=== PATIENT | female | born 1940 | race Caucasian/White ===

== ENCOUNTER 2017-03-08 11:19 | Emergency (ER) | payer MEDICARE, BC ==
[~2017-03-08] VITALS: Ht 152.4 cm; Wt 96.0 kg
[~2017-03-08 11:19] MED LIST: FERR1TAB36 PO; FURO1TAB62 PO; HYDR25TA5 PO; MULT400T PO; NORC5TAB PO; POTA-163 PO; SIMV20TA PO; VITA500T PO; XARE20TA PO
[2017-03-08 11:30] VITALS: BP 130/74; PULSE 75; RESP 18; TEMP 99.1; O2SAT 95
[2017-03-08] MEDS ORDERED: MORPHINE SULFATE 8 MG/ML INJ IV PUSH ONE (11:45)
[2017-03-08] MEDS ORDERED: SODIUM CHLORIDE 0.9% FLUSH 10 ML FLUSH IV FLUSH PRN (11:45)
[2017-03-08] MEDS ORDERED: LIDOCAINE VISCOUS 2% SOLN 15 ML UDC PO ONE (11:45)
[2017-03-08] MEDS ORDERED: ONDANSETRON HCL 4 MG/2 ML VIAL IVP ONE (11:45)
[2017-03-08] MEDS ORDERED: METO25TA3 PO (11:45)
[2017-03-08] MEDS ORDERED: FURO20TA PO (11:45)
[2017-03-08 11:54] LABS: AUTOMATED NEUTROPHIL # 7.8 TH/MM3 (1.8-7.7); BASOPHIL # 0.2 TH/MM3 (0-0.2); BASOPHIL % 2.2 % (0.0-2.0); EOSINOPHIL # 0.1 TH/MM3 (0-0.4); EOSINOPHIL % 0.7 % (0.0-4.0); LYMPH % 13.5 % (9.0-44.0); LYMPHOCYTE # 1.4 TH/MM3 (1.0-4.8); MEAN CELL VOLUME 88.8 FL (80.0-100.0); MEAN CORPUSCULAR HGB CONC 34.9 % (32.0-36.0); MONO % 6.4 % (0.0-8.0); NEUT % 77.2 % (16.0-70.0); PLATELET COUNT 216 TH/MM3 (150-450); RED BLOOD COUNT 4.17 MIL/MM3 (4.00-5.30); RED CELL DISTRIBUTION WIDTH 13.4 % (11.6-17.2); WHITE BLOOD COUNT 10.2 TH/MM3 (4.0-11.0)
[2017-03-08 11:55] LABS: HEMO FLAGS AUTO DIFF
[2017-03-08 12:00] VITALS: O2SAT 95
[2017-03-08 12:15] LABS: SCAN/DIFF AUTO DIFF CONFIRMED
[2017-03-08 12:22] LABS: CHLORIDE 97 MEQ/L (98-107); POTASSIUM 3.5 MEQ/L (3.5-5.1); SODIUM (NA) 140 MEQ/L (136-145)
[2017-03-08 12:24] LABS: APTT (PATIENT) 28.3 SEC (24.3-30.1); INTERNATIONAL NORMALIZED RATIO 1.1 RATIO; PROTHROMBIN TIME - PATIENT 12.1 SEC (9.8-11.6)
[2017-03-08 12:25] LABS: ANION GAP 7 MEQ/L (5-15); BICARBONATE 36.3 MEQ/L (21.0-32.0); BLOOD UREA NITROGEN 18 MG/DL (7-18)
[2017-03-08 12:28] LABS: ALT (GPT) 32 U/L (10-53); AST (GOT) 25 U/L (15-37); GLOMERULAR FILTRATION RATE 69 ML/MIN (>89)
[2017-03-08 12:30] VITALS: BP 123/69; PULSE 65; RESP 18; O2SAT 96
[2017-03-08 12:30] LABS: TOTAL BILIRUBIN ADULT 0.7 MG/DL (0.2-1.0)
[2017-03-08 12:31] LABS: ALKALINE PHOSPHATASE 79 U/L (45-117)
--- NOTE | 2017-03-08 12:40 | RADHPO ---
EXAM DATE/TIME: 03/08/2017 12:27 [facility] COMPARISON: CHEST PA & LAT, September 23, 2016, 9:21. CHEST SINGLE AP, September 21, 2016, 15:26. INDICATIONS : Chest pain, short of breath. MEDICAL HISTORY : Hiatal hernia. Hypertension Hypercholesterolemia. A-fib SURGICAL HISTORY : None. ENCOUNTER: Initial ACUITY: 2 days PAIN SCORE: 2/10 LOCATION: Bilateral chest FINDINGS: A single view of the chest demonstrates the lungs to be symmetrically aerated without evidence of mas s, infiltrate or effusion. There is some mild pulmonary venous congestion. The heart size is enlarged but stable. There is evidence of a stable hiatal hernia the GE junction. Compared to the prior exam there's been no significant changes.. CONCLUSION: 1. Mild pulmonary venous congestion. 2. Stable cardiomegaly. 3. Stable large hiatal hernia. Alexandre Carroll MD on March 08, 2017 at 12:37 Board Certified Radiologist. This report was verified electronically.
--- NOTE | 2017-03-08 12:51 | PD ---
HPI Chief Complaint: Chest Pain Time Seen by Provider: 11:28 Travel History International Travel<30 days: No Contact w/Intl Traveler<30days: No Traveled to known affect area: No History of Present Illness HPI 76-year-old female complains of orthopnea and dyspnea on exertion for several days. She also has epigastric abdominal pain. Symptoms are essentially constant. She reports a history of a hiatal hernia and believes that he asked her pain is due to the hiatal hernia. She's had no fever or cough. No vomiting reported. She follows with Dr. Sandoval. She also complains of rash on the L arm and bilateral legs since this morning. She wonders if it could be albuterol which she started using on Wednesday. The patient had her hair dyed brown on Wednesday as well and her scalp is red. PFSH Past Medical History Atrial Fibrillation: Yes Blood Disorders: No Heart Rhythm Problems: Yes (PT HAS A-FIB) Cancer: No Cardiovascular Problems: Yes High Cholesterol: Yes Diminished Hearing: No Endocrine: No GERD: No Genitourinary: No Headaches: Yes Hiatal Hernia: Yes Hypertension: Yes Immune Disorder: No Musculoskeletal: No Neurologic: No Psychiatric: No Reproductive: No Respiratory: Yes (HISTORY OF PNUEMONIA 08/2006, CHRONIC BRONCHITIS ENVIRONMENTAL) Pneumonia: Yes Tetanus Vaccination: > 5 Years Influenza Vaccination: Yes ?: Not Menopausal: Yes : 6 Para: 4 Miscarriage: 2 Past Surgical History AICD: No Cholecystectomy: Yes (1993) Eye Surgery: Yes (Cataracts ) Gynecologic Surgery: Yes (MESH PUT IN FOR BLADDER REPAIR) Pacemaker: No Other Surgery: Yes (RECTOCEL/CYSTOCEL MANY YEARS AGO, B9 CYSTS REMOVED FROM BREAST) Family History Family Myocardial Infarction: Yes Social History Alcohol Use: No Tobacco Use: No Substance Use: No Allergies-Medications (Allergen,Severity, Reaction): Coded Allergies: No Known Allergies (Verified , 03/08/17) Reported Meds & Prescriptions Reported Meds & Active Scripts Active Reported Furosemide 20 Mg Tab 20 Mg PO BID Metoprolol Tartrate 25 Mg Tab 25 Mg PO BID Xarelto (Rivaroxaban) 20 Mg Tab 20 Mg PO DAILY Multaq (Dronedarone) 400 Mg Tab 400 Mg PO DAILY Vitamin C (Ascorbic Acid) 500 Mg Tab 500 Mg PO DAILY Simvastatin 20 Mg Tab 20 Mg PO DAILY Potassium Chloride ER (Potassium Chloride) 20 Meq Tab 25 Meq PO DAILY Hydrochlorothiazide 25 Mg Tab 25 Mg PO DAILY Iron (Ferrous Sulfate) 325 Mg Tab 325 Mg PO DAILY Take Review of Systems Except as stated in HPI: all other systems reviewed are Neg General / Constitutional: No: Fever, Chills Respiratory: Positive: Shortness of Breath, No: Cough Physical Exam Narrative GENERAL: 76-year-old female pleasant well-nourished well-developed slightly anxious SKIN: Focused skin assessment warm/dry. HEAD: Atraumatic. Normocephalic. The scalp about the hair is red. Minimal urticaria along the left forearm. EYES: Pupils equal and round. No scleral icterus. No injection or drainage. ENT: No nasal bleeding or discharge. Mucous membranes pink and moist. NECK: Trachea midline. No JVD. CARDIOVASCULAR: Regular rate and rhythm. No murmur appreciated. RESPIRATORY: No accessory muscle use. Clear to auscultation. Breath sounds equal bilaterally. GASTROINTESTINAL: Soft. Minimal tenderness in the epigastrium. MUSCULOSKELETAL: No obvious deformities. No clubbing. No cyanosis. No edema. NEUROLOGICAL: Awake and alert. No obvious cranial nerve deficits. Motor grossly within normal limits. Normal speech. PSYCHIATRIC: Appropriate mood and affect; insight and judgment normal. Data Data Last Documented VS Vital Signs Date Time Temp Pulse Resp B/P Pulse Ox O2 Delivery O2 Flow Rate FiO2 03/08/17 13:30 88 18 113/64 98 Room Air 03/08/17 12:30 2 03/08/17 11:30 99.1 Vital signs reviewed Orders Complete Blood Count With Diff (03/08/17 11:40) Comprehensive Metabolic Panel (03/08/17 11:40) Lipase (03/08/17 11:40) Prothrombin Time / Inr (Pt) (03/08/17 11:40) Act Partial Throm Time (Ptt) (03/08/17 11:40) Iv Access Insert/Monitor (03/08/17 11:40) Ecg Monitoring (03/08/17 11:40) Oximetry (03/08/17 11:40) Ondansetron Inj (Zofran Inj) (03/08/17 11:45) Sodium Chloride 0.9% Flush (Ns Flush) (03/08/17 11:45) Electrocardiogram (03/08/17 11:40) Morphine Inj (Morphine Inj) (03/08/17 11:45) Lidocaine 2% Viscous (Xylocaine 2% Visco (03/08/17 11:45) Troponin I (03/08/17 11:40) Chest, Single Ap (03/08/17 ) B-Type Natriuretic Peptide (03/08/17 12:45) Labs Laboratory Tests Test 03/08/17 03/08/17 11:20 12:50 White Blood Count 10.2 TH/MM3 Red Blood Count 4.17 MIL/MM3 Hemoglobin 12.9 GM/DL Hematocrit 37.0 % Mean Corpuscular Volume 88.8 FL Mean Corpuscular Hemoglobin 31.0 PG Mean Corpuscular Hemoglobin 34.9 % Concent Red Cell Distribution Width 13.4 % Platelet Count 216 TH/MM3 Mean Platelet Volume 8.5 FL Neutrophils (%) (Auto) 77.2 % Lymphocytes (%) (Auto) 13.5 % Monocytes (%) (Auto) 6.4 % Eosinophils (%) (Auto) 0.7 % Basophils (%) (Auto) 2.2 % Neutrophils # (Auto) 7.8 TH/MM3 Lymphocytes # (Auto) 1.4 TH/MM3 Monocytes # (Auto) 0.7 TH/MM3 Eosinophils # (Auto) 0.1 TH/MM3 Basophils # (Auto) 0.2 TH/MM3 CBC Comment AUTO DIFF Differential Comment AUTO DIFF CONFIRMED Prothrombin Time 12.1 SEC Prothromb Time International 1.1 RATIO Ratio Activated Partial 28.3 SEC Thromboplast Time Sodium Level 140 MEQ/L Potassium Level 3.5 MEQ/L Chloride Level 97 MEQ/L Carbon Dioxide Level 36.3 MEQ/L Anion Gap 7 MEQ/L Blood Urea Nitrogen 18 MG/DL Creatinine 0.81 MG/DL Estimat Glomerular Filtration 69 ML/MIN Rate Random Glucose 78 MG/DL Calcium Level 9.4 MG/DL Total Bilirubin 0.7 MG/DL Aspartate Amino Transf 25 U/L (AST/SGOT) Alanine Aminotransferase 32 U/L (ALT/SGPT) Alkaline Phosphatase 79 U/L Troponin I LESS THAN 0.02 NG/ML Total Protein 6.9 GM/DL Albumin 3.3 GM/DL Lipase 183 U/L B-Type Natriuretic Peptide 45 PG/ML MDM Medical Decision Making Medical Screen Exam Complete: Yes Emergency Medical Condition: Yes Medical Record Reviewed: Yes Differential Diagnosis NSTEMI, unstable angina, coronary vasospasm, PE, PTX, aortic dissection, pericarditis, myocarditis, endocarditis, PNA, esophageal disease, aneurysm, musculoskeletal etiologies, anxiety, cocaine/sympathomimetic, Constipation, Gastritis, Acute Cholecystitis, Biliary Colic, Pancreatitis, MORGAN, Hepatitis, Bowel Obstruction, Cystitis, Mesenteric Ischemia, AAA, Appendicitis, Renal Stone /Hydronephrosis, GERD, perforated viscous Narrative Course EKG reveals atrial fibrillation at a rate of 69 CBC & BMP Diagram 03/08/17 11:20 Tn < 0.02 Lipase 183 LFTs normal INR 1.1 It seems likely that since the same erythema present on the patient's scalp appears to be on the patient's left forearm that she might fact have suffered an allergic reaction to hair dye. We discussed this possibility and hopefully that's not it however I think it's less likely for albuterol to have caused a rash on her scalp and forearm. Decadron IV and Benadryl IV given. Return precautions discussed. The patient notes having undergone a stress test about 9 months prior which was normal. The patient is resting comfortably and feels better, is alert and in no distress. The patients results and examination findings were discussed. The repeat examination is unremarkable and benign. The history, exam, diagnostic testing, and current condition do not suggest any significant pathology to warrant further testing, continued ED treatment, admission, or surgical evaluation at this point. The vital signs have been stable. The patient does not have uncontrollable pain, intractable vomiting, or other significant symptoms. The patient's condition is stable and appropriate for discharge. The patient will pursue further outpatient evaluation with a primary care physician or other designated or consulting physician as indicated in the discharge instructions. The patient expressed understanding and was agreeable with this plan. Diagnosis Primary Impression: Abdominal pain Qualified Code: R10.13 - Epigastric pain Additional Impression: Rash Referrals: DR LONDONO 2 days Additional Instructions: You have a choice when it comes to health care, and we are glad that you chose [facility]. Hopefully, we have met your expectations on today's visit. You are welcome to return to [facility] at any time, as we are committed to meeting the health care needs of our community. Med/Other Pt SpecificInfo: Prescription(s) given Disposition: DISCHARGE HOME Condition: Stable Jose Ramon De Anda MD March 08, 2017 12:51
[2017-03-08 13:30] VITALS: BP 113/64; PULSE 88; RESP 18; O2SAT 98
[2017-03-08] MEDS ORDERED: diphenhydrAMINE HCL 50 MG/ML VIAL IV PUSH ONE (14:15)
[2017-03-08] MEDS ORDERED: DEXAMETHASONE SOD PHOS 4 MG/ML VIAL IV PUSH ONE (14:15)
--- NOTE | 2017-03-09 13:38 | EKG ---
Date Performed: 03/08/2017 Time Performed: 11:22:44 PTAGE: 76 years EKG: Atrial fibrillation. Leftward axis Poor R wave progression - probable normal variant Septal and lateral ST-T changes are nonspecific Low QRS voltages in precordial leads Abnormal ECG PREVIOUS TRACING : 09/21/2016 14.53 Compared to prior tracing no significant change DOCTOR: Hubert De León Interpretating Date/Time 03/09/2017 13:36:33
== END 2017-03-08 14:20 | disposition home or self-care (01) ==
LOC: PHED 11:19
DX: R10.13 Epigastric pain (principal); R21 Rash and other nonspecific skin eruption; I48.91 Unspecified atrial fibrillation; R09.89 Other specified symptoms and signs involving the circulatory and respiratory systems; I51.7 Cardiomegaly; E78.00 Pure hypercholesterolemia, unspecified; I10 Essential (primary) hypertension; K44.9 Diaphragmatic hernia without obstruction or gangrene; Z79.899 Other long term (current) drug therapy
CPT/HCPCS: 71010; 80053; 83690; 83880; 84484; 85025; 85610; 85730; 93005; 96374; 96375; 99285; J1100; J1200; J2270; J2405

== ENCOUNTER 2017-03-10 08:16 | Inpatient (IN) | payer MEDICARE, BC ==
[2017-03-10] VITALS (7 sets, daily range): BP systolic 116–120; BP diastolic 58–74; PULSE 70–83; RESP 16–24; TEMP 97.8–101.6; O2SAT 91–95
[~2017-03-10] VITALS: Ht 152.4 cm; Wt 98.6 kg
[~2017-03-10 08:16] MED LIST changes: -FURO1TAB62 PO; +FURO20TA PO; +METO25TA3 PO; -NORC5TAB PO
--- NOTE | 2017-03-10 08:43 | PD ---
HPI Chief Complaint: Abdominal Pain Time Seen by Provider: 08:34 Travel History International Travel<30 days: No Contact w/Intl Traveler<30days: No Traveled to known affect area: No History of Present Illness HPI patient states 4 days of abdominal pain, epigastric, rad to back, states no n/v/ d/fever/ per patient....seen at [facility] where she had cmp, lipase, cbc, and cxr all of which were nondiagnostic [facility] Past Medical History Hx Anticoagulant Therapy: Yes (xarelto) Atrial Fibrillation: Yes Blood Disorders: No Heart Rhythm Problems: Yes (PT HAS A-FIB) Cancer: No Cardiovascular Problems: Yes (a-fib) High Cholesterol: Yes Diminished Hearing: No Endocrine: No GERD: No Genitourinary: No Headaches: Yes Hiatal Hernia: Yes Hypertension: Yes Immune Disorder: No Musculoskeletal: No Neurologic: No Psychiatric: No Reproductive: No Respiratory: Yes (HISTORY OF PNUEMONIA 08/2006, CHRONIC BRONCHITIS ENVIRONMENTAL) Pneumonia: Yes Menopausal: Yes : 6 Para: 4 Miscarriage: 2 Past Surgical History AICD: No Cholecystectomy: Yes (1993) Eye Surgery: Yes (Cataracts ) Gynecologic Surgery: Yes (MESH PUT IN FOR BLADDER REPAIR) Pacemaker: No Other Surgery: Yes (RECTOCEL/CYSTOCEL MANY YEARS AGO, B9 CYSTS REMOVED FROM BREAST) Social History Alcohol Use: No Tobacco Use: No Substance Use: No Allergies-Medications (Allergen,Severity, Reaction): Coded Allergies: No Known Allergies (Verified , 03/08/17) Reported Meds & Prescriptions Reported Meds & Active Scripts Active Reported Furosemide 20 Mg Tab 20 Mg PO BID Xarelto (Rivaroxaban) 20 Mg Tab 20 Mg PO DAILY Multaq (Dronedarone) 400 Mg Tab 400 Mg PO DAILY Vitamin C (Ascorbic Acid) 500 Mg Tab 500 Mg PO DAILY Simvastatin 20 Mg Tab 20 Mg PO DAILY Potassium Chloride ER (Potassium Chloride) 20 Meq Tab 25 Meq PO DAILY Hydrochlorothiazide 25 Mg Tab 25 Mg PO DAILY Iron (Ferrous Sulfate) 325 Mg Tab 325 Mg PO DAILY Take Review of Systems Except as stated in HPI: all other systems reviewed are Neg Gastrointestinal: Positive: Nausea, Abdominal Pain Physical Exam Narrative GENERAL: SKIN: Warm and dry. HEAD: Atraumatic. Normocephalic. EYES: Pupils equal and round. No scleral icterus. No injection or drainage. ENT: No nasal bleeding or discharge. Mucous membranes pink and moist. NECK: Trachea midline. No JVD. CARDIOVASCULAR: Regular rate and rhythm. RESPIRATORY: No accessory muscle use. Clear to auscultation. Breath sounds equal bilaterally. GASTROINTESTINAL: BOWEL SOUNDS PRESENT, EPIG TTP, NO REBOUND, NO GUARDING, NO RIGIDITY, NEG FLORES'S SIGN MUSCULOSKELETAL: Extremities without clubbing, cyanosis, or edema. No obvious deformities. NEUROLOGICAL: Awake and alert. No obvious cranial nerve deficits. Motor grossly within normal limits. Five out of 5 muscle strength in the arms and legs. Normal speech. PSYCHIATRIC: Appropriate mood and affect; insight and judgment normal. Data Data Last Documented VS Vital Signs Date Time Temp Pulse Resp B/P Pulse Ox O2 Delivery O2 Flow Rate FiO2 03/10/17 08:19 97.8 80 24 116/66 95 Room Air Orders Complete Blood Count With Diff (03/10/17 08:44) Comprehensive Metabolic Panel (03/10/17 08:44) Lipase (03/10/17 08:44) Prothrombin Time / Inr (Pt) (03/10/17 08:44) Act Partial Throm Time (Ptt) (03/10/17 08:44) Urinalysis - C+S If Indicated (03/10/17 08:44) Iv Access Insert/Monitor (03/10/17 08:44) Ecg Monitoring (03/10/17 08:44) Oximetry (03/10/17 08:44) Ondansetron Inj (Zofran Inj) (03/10/17 08:45) Sodium Chloride 0.9% Flush (Ns Flush) (03/10/17 08:45) Electrocardiogram (03/10/17 08:44) Hydromorphone Pf Inj (Dilaudid Pf Inj) (03/10/17 08:45) Ed Poc Ultrasound (03/10/17 08:44) B-Type Natriuretic Peptide (03/10/17 08:49) Troponin I (03/10/17 08:49) Creatine Kinase (Cpk) (03/10/17 08:49) Ckmb (Isoenzyme) Profile (03/10/17 08:49) Cta Thor Abd Aorta W Iv C W3d (03/10/17 ) Vascular Access Team Consult/P PRN (03/10/17 09:33) Vascular Poc Ultrasound (03/10/17 ) Admit Order (Ed Use Only) (03/10/17 10:59) Labs Laboratory Tests Test 03/10/17 03/10/17 09:20 10:10 White Blood Count 6.7 TH/MM3 Red Blood Count 3.85 MIL/MM3 Hemoglobin 11.9 GM/DL Hematocrit 34.4 % Mean Corpuscular Volume 89.3 FL Mean Corpuscular Hemoglobin 30.9 PG Mean Corpuscular Hemoglobin 34.6 % Concent Red Cell Distribution Width 14.8 % Platelet Count 165 TH/MM3 Mean Platelet Volume 8.3 FL Neutrophils (%) (Auto) 79.6 % Lymphocytes (%) (Auto) 11.0 % Monocytes (%) (Auto) 7.5 % Eosinophils (%) (Auto) 1.4 % Basophils (%) (Auto) 0.5 % Neutrophils # (Auto) 5.3 TH/MM3 Lymphocytes # (Auto) 0.7 TH/MM3 Monocytes # (Auto) 0.5 TH/MM3 Eosinophils # (Auto) 0.1 TH/MM3 Basophils # (Auto) 0.0 TH/MM3 CBC Comment DIFF FINAL Differential Comment Prothrombin Time 11.6 SEC Prothromb Time International 1.0 RATIO Ratio Activated Partial 25.9 SEC Thromboplast Time Sodium Level 139 MEQ/L Potassium Level 3.4 MEQ/L Chloride Level 97 MEQ/L Carbon Dioxide Level 32.9 MEQ/L Anion Gap 9 MEQ/L Blood Urea Nitrogen 21 MG/DL Creatinine 0.80 MG/DL Estimat Glomerular Filtration 70 ML/MIN Rate Random Glucose 94 MG/DL Calcium Level 8.7 MG/DL Total Bilirubin 0.7 MG/DL Aspartate Amino Transf 21 U/L (AST/SGOT) Alanine Aminotransferase 26 U/L (ALT/SGPT) Alkaline Phosphatase 77 U/L Total Creatine Kinase 100 U/L Troponin I LESS THAN 0.02 NG/ML B-Type Natriuretic Peptide 69 PG/ML Total Protein 6.5 GM/DL Albumin 3.3 GM/DL Lipase 1075 U/L Urine Color LIGHT-YELLOW Urine Turbidity CLEAR Urine pH 7.0 Urine Specific [place] 1.007 Urine Protein NEG mg/dL Urine Glucose (UA) NEG mg/dL Urine Ketones NEG mg/dL Urine Occult Blood NEG Urine Nitrite NEG Urine Bilirubin NEG Urine Urobilinogen LESS THAN 2.0 MG/DL Urine Leukocyte Esterase NEG Urine RBC LESS THAN 1 /hpf Urine WBC LESS THAN 1 /hpf Urine Squamous Epithelial <1 /hpf Cells Urine Mucus FEW /lpf Microscopic Urinalysis Comment CULT NOT INDICATED MDM Medical Decision Making Medical Screen Exam Complete: Yes Emergency Medical Condition: Yes Interpretation(s) IKG NSR 89 with baseline motion artifact, no stemi, normal intervals, Differential Diagnosis AAA, PANCREATITIS, NONSTEMI, HIATAL HERNIA Narrative Course PATIENT IS COMFORTABLE AND PAIN IS CONTROLLED HOWEVER WILL BE OBSERVED DUE TO NEW ONSET PANCREATITIS, PO INTOLERANCE, AND PAIN CONTROL Diagnosis Primary Impression: Acute pancreatitis Qualified Code: K85.90 - Acute pancreatitis, unspecified complication status, unspecified pancreatitis type Admitting Information Admitting Physician Requests: Observation Floyd Rose MD March 10, 2017 08:43
[2017-03-10] MEDS ORDERED: ONDANSETRON HCL 4 MG/2 ML VIAL IVP ONE (08:45)
[2017-03-10] MEDS ORDERED: SODIUM CHLORIDE 0.9% FLUSH 10 ML FLUSH IV FLUSH PRN (08:45)
[2017-03-10] MEDS ORDERED: HYDROmorphone HCL PF 1 MG/ML VIAL IVS ONE (08:45)
[2017-03-10 09:54] LABS: AUTOMATED NEUTROPHIL # 5.3 TH/MM3 (1.8-7.7); BASOPHIL % 0.5 % (0.0-2.0); EOSINOPHIL # 0.1 TH/MM3 (0-0.4); EOSINOPHIL % 1.4 % (0.0-4.0); HEMATOCRIT 34.4 % (35.0-46.0); HEMO FLAGS DIFF FINAL; LYMPHOCYTE # 0.7 TH/MM3 (1.0-4.8); MEAN CELL VOLUME 89.3 FL (80.0-100.0); MEAN CORPUSCULAR HEMOGLOBIN 30.9 PG (27.0-34.0); MEAN CORPUSCULAR HGB CONC 34.6 % (32.0-36.0); MONO % 7.5 % (0.0-8.0); NEUT % 79.6 % (16.0-70.0); PLATELET COUNT 165 TH/MM3 (150-450); RED BLOOD COUNT 3.85 MIL/MM3 (4.00-5.30); RED CELL DISTRIBUTION WIDTH 14.8 % (11.6-17.2); WHITE BLOOD COUNT 6.7 TH/MM3 (4.0-11.0)
[2017-03-10 10:04] LABS: APTT (PATIENT) 25.9 SEC (24.3-30.1); PROTHROMBIN TIME - PATIENT 11.6 SEC (9.8-11.6)
[2017-03-10 10:09] LABS: ANION GAP 9 MEQ/L (5-15); AST (GOT) 21 U/L (15-37); BICARBONATE 32.9 MEQ/L (21.0-32.0); BLOOD UREA NITROGEN 21 MG/DL (7-18); CHLORIDE 97 MEQ/L (98-107); GLOMERULAR FILTRATION RATE 70 ML/MIN (>89); POTASSIUM 3.4 MEQ/L (3.5-5.1); SODIUM (NA) 139 MEQ/L (136-145)
[2017-03-10 10:16] LABS: ALKALINE PHOSPHATASE 77 U/L (45-117); ALT (GPT) 26 U/L (10-53); CREATINE KINASE 100 U/L (26-192); TOTAL BILIRUBIN ADULT 0.7 MG/DL (0.2-1.0)
--- NOTE | 2017-03-10 10:18 | EKG ---
Date Performed: 03/10/2017 Time Performed: 09:04:16 PTAGE: 76 years EKG: Sinus rhythm PATTERN CONSISTENT WITH PULMONARY DISEASE POSSIBLE RIGHT VENTRICULAR HYPERTROPHY ABNORMAL ECG PREVIOUS TRACING : 03/08/2017 11.22 DOCTOR: Obinna Guerrero Interpretating Date/Time 03/10/2017 10:16:57
[2017-03-10 10:35] LABS: BLOOD, URINE NEG (NEG); COMMENT (UR) CULT NOT INDICATED; CULTURE IF INDICATED CULT NOT INDICATED; GLUCOSE,URINE NEG (NEG); KETONE, URINE NEG (NEG); MUCUS URINE FEW /lpf (OCC); NITRITE,URINE NEG (NEG); SQUAMOUS EPITHELIAL CELL URINE <1 /hpf (0-5); URINE COLOR LIGHT-YELLOW (YELLW/STRAW)
[2017-03-10] MEDS ORDERED: IOHEXOL 350 MG/ML 10 ML VIAL (for RAD DIAG) IV ONE (11:49)
[2017-03-10] MEDS ORDERED: KETOROLAC TROMETHAMINE 30 MG/ML (IVP) VIAL IVP PRN (12:00)
[2017-03-10] MEDS ORDERED: ONDANSETRON HCL 4 MG/2 ML VIAL IV PRN (12:00)
--- NOTE | 2017-03-10 12:24 | HHI.PR ---
Objective Objective Results - Vital Signs Date Time Temp Pulse Resp B/P Pulse Ox O2 Delivery O2 Flow Rate FiO2 03/10/17 11:35 18 03/10/17 08:19 97.8 80 24 116/66 95 Room Air Result Diagram: 03/10/1720 03/10/17919 A/P Assessment and Plan Add Hypokalemia to her Diagnosis and Plan, Added extra K+ dose today, CXR, recheck BMP in am. Eli Sanchez March 10, 2017 12:17
--- NOTE | 2017-03-10 12:34 | RADRPT ---
EXAM DATE/TIME: 03/10/2017 10:56 [facility] COMPARISON: CT PULMONARY ANGIOGRAM, December 31, 2014, 15:50. INDICATIONS : Chest pain x 1 week IV CONTRAST: 75 cc Omnipaque 350 (iohexol) IV RADIATION DOSE: 12.77 CTDIvol (mGy) MEDICAL HISTORY : Cardiovascular disease. Hypertension. SURGICAL HISTORY : Cholecystectomy. ENCOUNTER: Initial ACUITY: 1 week PAIN SCALE: 10/10 LOCATION: chest TECHNIQUE: Volumetric scanning was performed using a multi-row detector CT scanner. The data was post processed with a variety of visualization algorithms including full volume maximum intensity projection, multi -planar sliding thin slab reformation, curved planar reformation, and surface rendering techniques. Using automated exposure control and adjustment of the mA and/or kV according to patient size, radiat ion dose was kept as low as reasonably achievable to obtain optimal diagnostic quality images. FINDINGS: Thoracic/abdominal aorta: The aorta is normal in caliber and course. Mild scattered calcified plaque. No dissection, aneurysm, or periaortic hematoma. Arch vessels, celiac, SMA, JUAN CARLOS, and renal arteries are patent. Heart and mediastinum: There is a large hiatal hernia. Heart is mildly enlarged. A single anterior mediastinal lymph node me asures 1.7 x 1.0 cm. This is smaller from the prior study. No bulky adenopathy seen. Pulmonary arteri es are normal in caliber. Lung parenchyma: Lung parenchyma is clear. No infiltrate or mass. Minimal atelectasis within the lung bases bilaterall y. Other structures: Splenomegaly is unchanged. Prior cholecystectomy. Colonic diverticulosis without acute inflammation. CONCLUSION: 1. No aortic aneurysm or dissection. 2. Splenomegaly. 3. Large hiatal hernia. 4. Prior cholecystectomy. Jerzy Angulo Jr., MD on March 10, 2017 at 12:13 Board Certified Radiologist. This report was verified electronically.
--- NOTE | 2017-03-10 12:47 | MH ---
cc: SYEDA WISEMAN DATE OF ADMISSION 03/10/2017 DATE OF 1940 CHIEF COMPLAINT Epigastric pain, cough, itching. TRAVEL IN THE LAST 30 DAYS None HISTORY OF PRESENT ILLNESS This is a pleasant 76 year-old white female who had been in her usual state of health up until about a week ago. The patient noticed itching uncontrollable that started in her hair and hairline and then traveled down into her arms and the palms of her hands. She is noted to have a rash on her arms bilateral and states that the itching started before she went to the hospital in [place] Wednesday morning with epigastric pain. The patient's chief reason for coming to the [facility] is she has been having abdominal pain for approximately four days. She describes it in the epigastric region radiating into her back. She denies any radiation anywhere else into her abdomen, but she has had a decreased appetite, generalized nausea, and has had some recent weight gain, as well as a trace to 1+ edema in her legs bilaterally. On exam, the patient is noted to be coughing, has some expiratory wheezing and some rhonchi noted. According to the record and patient, she was seen at [facility] on Wednesday a.m. and was discharged to follow up with her PCP. She had a CMP, lipase, CBC and a chest x-ray ordered that were non-diagnostic. The patient states that her PCP has also been treating her for bronchitis for the last month or so. The patient is complaining of some mild dyspnea. MEDICAL HISTORY 1. Atrial fibrillation 2. Cardiovascular disease. The patient is on Xarelto. 3. Hyperlipidemia 4. A large hiatal hernia. 5. GERD 6. Arthritis 7. History of pneumonia. 8. Chronic bronchitis due to seasonal allergies and environment Things. PAST SURGICAL HISTORY 1. Cholecystectomy in 1993 2. Cataract surgery 3. Bladder tack and repair with mesh 4. Rectocele, cystocele repair many years ago 5. Benign cyst removed from her breast ALLERGIES No known drug allergies. MEDICATIONS 1. Xarelto 2. Lasix 3. Multaq 4. Vitamin C 5. Simvastatin 6. Potassium 7. Hydrochlorothiazide 8. Iron SOCIAL HISTORY The patient denies any tobacco, alcohol or illicit drug use. She is and currently lives at home with her . REVIEW OF SYSTEMS A 12-point review was done, positives noted are her epigastric abdominal pain, nausea, itching with rash, macular rash, some mild expiratory wheezing and rhonchi. Decreased appetite, decreased p.o. intake for the past four days. The patient also has mild dyspnea. Other systems negative or unremarkable. PHYSICAL EXAM VITAL SIGNS: Temperature is 97.8, pulse 80, respiratory rate labile between 18-24, blood pressure 116/66, O2 sat 95 currently on room air. GENERAL: An obese white female who looks to be her stated age. She is alert, oriented, and talkative with mild anxiety over current condition. SKIN: Skin is pink, warm and dry. She does have a macular rash that appears to be healing on her right forearm. She does have reddened palms and hands where she has been itching and scratching. I see no erythema or insects noted in her hair or hairline. HEAD, EYES, EARS, NOSE, AND THROAT: Atraumatic, normocephalic. PERRLA at 2. Mucous membranes are pink and moist. No scleral icterus. NECK: Thick, supple. CARDIOVASCULAR: S1, S2, very soft systolic murmur grade 2/6 at the left sternal border. She does have a trace to 1+ bilateral pitted edema, but her pulses are intact. PULMONARY: Lung sounds show some coarse rhonchi especially in the anterior lobes with some expiratory wheezing throughout the posterior lobes. ABDOMEN: Round, obese, mild tenderness in the epigastric area, otherwise unremarkable. Active bowel sounds in all four quadrants. MUSCULOSKELETAL: She moves all extremities with purpose. 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 No obvious deformities. NEUROLOGIC: She is alert and oriented, slightly anxious over current condition, but responds well to conversation. She is a fairly good historian. PSYCHOLOGICAL: Appropriate mood and affect. DIAGNOSTIC DATA WBC count 6.7, RBC 3.85, hemoglobin 11.9, hematocrit 34.4, abnormal neutrophil percentage, auto count 79.6, lymphocyte count low at 0.7. PT-INR is 1.0. Chemistries, sodium 139, potassium 3.4, chloride 97, carbon dioxide 32.9, amnion gap 9, BUN 21, creatinine 1.80, GFR is 70, random glucose is 94, LFT's are normal. Troponin level is normal at less than 0.02, lipase is 1075 and her albumin is 3.3. Urine is yellow and clear. The pH is 7, specific gravity 1.007, negative protein, glucose, ketones, occult blood, nitrites, bilirubin and leukocyte esterase. She has a few mucous cells noted. No culture is indicated. We have a vascular ultrasound which is pending and an aortic CTA which is pending and a chest x-ray which is pending. ASSESSMENT AND PLAN 1. Pancreatitis acute onset with epigastric abdominal pain. 2. History of hypertension. 3. Hypokalemia, mild. 4. Acute kidney injury with dehydration 5. Epigastric pain, rule out any type of vascular event. 6. Bronchitis acute on chronic. 7. History of atrial fibrillation 8. Generalized weakness and physical deconditioning. Our plan is to admit for observation. We will monitor on cardiac telemetry. Vital signs will be q4 and as warranted. Activity will be out of bed ad edison, but with assistance. We will monitor her intake and output. The patient is currently on p.o. Lasix and we will continue her home medications. We will give her some normal saline for gentle hydration, pain management with IV meds, SCD's for DVT prophylaxis. We will consult GI for his expert opinion and her pancreatitis diagnosis. The patient will maintain IV access. We will evaluate chest x-ray, aortic CTA and vascular ultrasound when available. We will put her on as needed Benadryl for her itching. This could be an allergic reaction versus a viral reaction. We will monitor her symptoms. We will give her DuoNeb's q4 while awake as needed for her wheezing and bronchitis. O2 as needed. The patient is full code, full aggressive care and we will continue to monitor. Dictated by TOMAS Sierra Syeda Wiseman MD JP/STARR /11:53 AM /12:16 PM Patient seen and examined as above in ER Chart reviewed including meds labs and neurological data Previous notes reviewed Discussed with ER physician Plan of care discussed with TOMAS Discussed with patient See orders MTDD
--- NOTE | 2017-03-10 12:53 | RADRPT ---
EXAM DATE/TIME: 03/10/2017 12:09 [facility] COMPARISON: CTA THORACIC ABDOMINAL AORTA W 3D RECON, March 10, 2017, 10:56. CHEST PA & LAT, September 23, 2016, 9:2 1. INDICATIONS : Bronchitis. Chest pain off and on. MEDICAL HISTORY : Hiatal hernia. Hypertension Hypercholesterolemia. A-fib SURGICAL HISTORY : None. ENCOUNTER: Initial ACUITY: 2 weeks PAIN SCORE: 10/10 LOCATION: Bilateral chest FINDINGS: The cardiac silhouette is enlarged in transverse diameter. The lungs are free of acute parenchymal op acity. No effusions are identified. The aortic knob is prominent with tortuosity of the descending th oracic aorta. A hiatal hernia is present. CONCLUSION: 1. Cardiomegaly. No acute pulmonary disease. Joby Valencia MD on March 10, 2017 at 12:48 Board Certified Radiologist. This report was verified electronically.
[2017-03-10] MEDS: POTASSIUM CHLORIDE 25 MEQ EFFERVESCENT TAB PO SCH (13:00)
[2017-03-10] MEDS ORDERED: POTASSIUM CHLORIDE 25 MEQ EFFERVESCENT TAB PO ONE (13:30)
[2017-03-10] MEDS: SODIUM CHLOR 0.9% 1000 ML INJ 1,000 ML IV SCH ×2 (13:48→18:40)
[2017-03-10] MEDS: RIVAROXABAN 20 MG TAB PO SCH (13:49)
[2017-03-10] MEDS: cefTRIAXone INJ 1,000 MG in SODIUM CHLORIDE 0.9% INJ 100 ML IV SCH (13:49)
[2017-03-10] MEDS: diphenhydrAMINE HCL 25 MG CAP PO PRN ×2 (14:04→21:23)
[2017-03-10] MEDS: RESP: ALBUTEROL 2.5 MG/IPRATROPIUM 0.5 MG NEB (SCH) NEB ×2 (14:04→19:57)
[2017-03-10] MEDS ORDERED: diphenhydrAMINE HCL 50 MG/ML VIAL IV PRN (16:30)
[2017-03-10] MEDS ORDERED: DIATRIZOATE MEGLUM/DIATRIZOATE SOD 9 ML CUP PO ONE (17:00)
--- NOTE | 2017-03-10 18:28 | RADHPO ---
EXAM DATE/TIME: 03/10/2017 18:09 [facility] COMPARISON: No previous studies available for comparison. INDICATIONS : Hallucinations. RADIATION DOSE: 62.64 CTDIvol (mGy) MEDICAL HISTORY : Hypertension. Cardiovascular disease Family history of brain cancer. SURGICAL HISTORY : None. ENCOUNTER: Initial ACUITY: 1 day PAIN SCALE: 0/10 LOCATION: cranial TECHNIQUE: Multiple contiguous axial images were obtained of the head. Using automated exposure control and adj ustment of the mA and/or kV according to patient size, radiation dose was kept as low as reasonably a chievable to obtain optimal diagnostic quality images. FINDINGS: CEREBRUM: The ventricles are normal for age. No evidence of midline shift, mass lesion, hemorrhage or acute in farction. No extra-axial fluid collections are seen. POSTERIOR FOSSA: The cerebellum and brainstem are intact. The 4th ventricle is midline. The cerebellopontine angle i s unremarkable. EXTRACRANIAL: The visualized portion of the orbits is intact. SKULL: The calvaria is intact. No evidence of skull fracture. CONCLUSION: 1. No evidence of acute intracranial pathology. No masses are identified. Joby Valencia MD on March 10, 2017 at 18:26 Board Certified Radiologist. This report was verified electronically.
[2017-03-10] MEDS: FUROSEMIDE 20 MG TAB PO SCH (21:03)
[2017-03-10] MEDS: ACETAMINOPHEN 325 MG TAB PO PRN (21:03)
[2017-03-11] VITALS (11 sets, daily range): BP systolic 111–140; BP diastolic 53–72; PULSE 72–96; RESP 16–20; TEMP 98–101.9; O2SAT 92–98
[2017-03-11] MEDS: SODIUM CHLOR 0.9% 1000 ML INJ 1,000 ML IV SCH ×4 (00:28→22:16)
[2017-03-11] MEDS: ACETAMINOPHEN 325 MG TAB PO PRN (04:54)
[2017-03-11] MEDS ORDERED: diphenhydrAMINE HCL 50 MG/ML VIAL IV PRN (05:30)
[2017-03-11] MEDS: diphenhydrAMINE HCL 25 MG CAP PO PRN (06:26)
[2017-03-11] MEDS: MORPHINE SULFATE 8 MG/ML INJ IV PUSH PRN ×2 (06:52→19:45)
[2017-03-11] MEDS ORDERED: DIATRIZOATE MEGLUM/DIATRIZOATE SOD 9 ML CUP PO ONE (07:06)
[2017-03-11] MEDS: RESP: ALBUTEROL 2.5 MG/IPRATROPIUM 0.5 MG NEB (SCH) NEB ×5 (07:32→19:30)
[2017-03-11 07:39] LABS: POTASSIUM 3.3 MEQ/L (3.5-5.1)
[2017-03-11 07:40] LABS: AUTOMATED NEUTROPHIL # 5.1 TH/MM3 (1.8-7.7); BASOPHIL % 0.4 % (0.0-2.0); EOSINOPHIL # 0.1 TH/MM3 (0-0.4); EOSINOPHIL % 1.5 % (0.0-4.0); HEMATOCRIT 33.5 % (35.0-46.0); HEMO FLAGS DIFF FINAL; LYMPHOCYTE # 0.6 TH/MM3 (1.0-4.8); MEAN CELL VOLUME 91.3 FL (80.0-100.0); MEAN CORPUSCULAR HGB CONC 32.9 % (32.0-36.0); MONO % 7.5 % (0.0-8.0); NEUT % 81.6 % (16.0-70.0); PLATELET COUNT 141 TH/MM3 (150-450); RED BLOOD COUNT 3.67 MIL/MM3 (4.00-5.30); RED CELL DISTRIBUTION WIDTH 14.6 % (11.6-17.2); WHITE BLOOD COUNT 6.4 TH/MM3 (4.0-11.0)
[2017-03-11 07:55] LABS: BICARBONATE 33.4 MEQ/L (21.0-32.0)
--- NOTE | 2017-03-11 08:00 | MB ---
cc: SYEDA WISEMAN LOUIS M. MD RICCI, DONATO DATE OF CONSULTATION 03/10/2017 REASON FOR GI CONSULTATION Evaluation of abdominal pain, nausea, vomiting and pancreatitis. HISTORY OF PRESENT ILLNESS This is a pleasant 76-year-old female who presented to the hospital with rapid onset epigastric pain. She states the pain radiates underneath both ribcage areas and into the back. She has had generalized nausea and some emesis. Laboratory data revealed elevated lipase with normal liver function studies. The patient has no history of alcohol use in the past. Lipase was 1075, troponin was normal. The patient reports she has recently been having difficulties with bronchitis. She was treated with Solu-Medrol Dosepak and antibiotics as an outpatient. She has a history of atrial fibrillation and she is maintained on medication call Multaq. It is noted the patient had a bout of presumed pancreatitis back in August of last year with a modestly elevated lipase. CT imaging study was negative for any CT findings consistent with pancreatitis. The patient has a CT ordered pending today. A repeat lipase is also pending. She is still having epigastric pain despite IV analgesics. She has had no jaundice. Her temperature has been elevated this admission to a maximum of 101.9. The patient's abdominal pain began about two days prior to admission and has escalated. Her medications once again include: 1. Multaq 2. Xarelto 3. Lasix 4. Simvastatin 5. Potassium 6. Hydrochlorothiazide 7. Iron ALLERGIES None PAST HISTORY 1. Cholecystectomy 2. Bladder repair with mesh 3. Rectocele 4. Benign breast lesion 5. Chronic bronchitis 6. Gastroesophageal reflux disease 7. History of pneumonia. 8. History of large hiatal hernia. 9. Hyperlipidemia 10. Cardiovascular disease 11. Atrial fibrillation FAMILY HISTORY Negative from a GI standpoint. A 12-point review of systems as stated above. She has also been having pruritus as well and decreased p.o. intake. EXAMINATION A pleasant well-developed obese female alert, complaining of epigastric pain. VITAL SIGNS: Currently stable. The current temperature is 99.2. HEENT: Exam normocephalic. Sclerae anicteric. Oral mucosa dry. NECK: Supple. CARDIAC: S1, S2 regular rhythm. CHEST: Occasional rhonchi. Poor inspiratory effort. ABDOMEN: Obese, protuberant epigastric tenderness is noted. Slight guarding. No rebound. It is difficult to appreciate any organomegaly. EXTREMITIES: Trace peripheral edema. IMPRESSION Acute recurrent pancreatitis as per enzyme criteria. The patient has had a previous bout of pancreatitis less severe in August of last year. Potential etiologies could include idiopathic or autoimmune cause. Would suggest checking OSIEL and IgG4 levels. However, I have researched Multaq. That medication has been reported to cause pancreatitis in approximately 26 cases as well as causing itching. I have discussed this with the patient and her . We will discuss with Dr. Wiseman as this medication may need to be discontinued. An alternative therapy should be considered. We will follow up the results of CT scan, repeat lipase and continue IV hydration. Continue analgesics. We will follow the patient with. Thank you for this consult. MD LUDWIG Arambula/STARR /7:32 AM /7:46 AM
--- NOTE | 2017-03-11 08:22 | HHI.PR ---
Subjective History of Present Illness Patient still c/o abdominal pain have low potassium will replace and check magnasium level. Lipase normal today. Review of Systems Constitutional Constitutional: Fatigue, Weakness GI/Abdomen GI/Abdominal Exam: Nausea, Abdominal Pain Vitals/Results Intake & Output 03/10/17 03/10/17 03/11/17 15:00 23:00 07:00 Intake Total 569 ml 2062 ml Balance 569 ml 2062 ml Intake Oral 0 ml 180 ml IV Total 569 ml 1882 ml # Voids 1 4 # Bowel Movements 0 Vital Signs Vital Signs Date Time Temp Pulse Resp B/P Pulse Ox O2 Delivery O2 Flow Rate FiO2 03/11/17 07:36 98 Nasal Cannula 1.00 03/11/17 06:22 99.2 03/11/17 04:00 101.9 85 18 121/53 92 03/11/17 00:00 98.7 73 16 114/65 96 03/10/17 22:15 99.5 03/10/17 20:05 83 03/10/17 20:00 101.6 82 18 119/74 91 03/10/17 20:00 93 Nasal Cannula 2.00 03/10/17 19:55 93 Nasal Cannula 3.00 03/10/17 16:00 98.1 77 16 120/70 95 03/10/17 14:41 98.5 70 16 119/58 94 03/10/17 11:35 18 CBC/BMP: 03/11/17 0637 03/11/17 0637 Lab Results Laboratory Tests Test 03/10/17 03/10/17 03/11/17 09:20 10:10 06:37 White Blood Count 6.7 TH/MM3 6.4 TH/MM3 Red Blood Count 3.85 MIL/MM3 3.67 MIL/MM3 Hemoglobin 11.9 GM/DL 11.0 GM/DL Hematocrit 34.4 % 33.5 % Mean Corpuscular Volume 89.3 FL 91.3 FL Mean Corpuscular Hemoglobin 30.9 PG 30.0 PG Mean Corpuscular Hemoglobin 34.6 % 32.9 % Concent Red Cell Distribution Width 14.8 % 14.6 % Platelet Count 165 TH/MM3 141 TH/MM3 Mean Platelet Volume 8.3 FL 8.5 FL Neutrophils (%) (Auto) 79.6 % 81.6 % Lymphocytes (%) (Auto) 11.0 % 9.0 % Monocytes (%) (Auto) 7.5 % 7.5 % Eosinophils (%) (Auto) 1.4 % 1.5 % Basophils (%) (Auto) 0.5 % 0.4 % Neutrophils # (Auto) 5.3 TH/MM3 5.1 TH/MM3 Lymphocytes # (Auto) 0.7 TH/MM3 0.6 TH/MM3 Monocytes # (Auto) 0.5 TH/MM3 0.5 TH/MM3 Eosinophils # (Auto) 0.1 TH/MM3 0.1 TH/MM3 Basophils # (Auto) 0.0 TH/MM3 0.0 TH/MM3 CBC Comment DIFF FINAL DIFF FINAL Differential Comment Prothrombin Time 11.6 SEC Prothromb Time International 1.0 RATIO Ratio Activated Partial 25.9 SEC Thromboplast Time Sodium Level 139 MEQ/L 139 MEQ/L Potassium Level 3.4 MEQ/L 3.3 MEQ/L Chloride Level 97 MEQ/L 99 MEQ/L Carbon Dioxide Level 32.9 MEQ/L 33.4 MEQ/L Anion Gap 9 MEQ/L 7 MEQ/L Blood Urea Nitrogen 21 MG/DL 16 MG/DL Creatinine 0.80 MG/DL 0.82 MG/DL Estimat Glomerular Filtration 70 ML/MIN 68 ML/MIN Rate Random Glucose 94 MG/DL 106 MG/DL Calcium Level 8.7 MG/DL 7.9 MG/DL Total Bilirubin 0.7 MG/DL Aspartate Amino Transf 21 U/L (AST/SGOT) Alanine Aminotransferase 26 U/L (ALT/SGPT) Alkaline Phosphatase 77 U/L Total Creatine Kinase 100 U/L Troponin I LESS THAN 0.02 NG/ML B-Type Natriuretic Peptide 69 PG/ML Total Protein 6.5 GM/DL Albumin 3.3 GM/DL Lipase 1075 U/L 174 U/L Urine Color LIGHT-YELLOW Urine Turbidity CLEAR Urine pH 7.0 Urine Specific [place] 1.007 Urine Protein NEG mg/dL Urine Glucose (UA) NEG mg/dL Urine Ketones NEG mg/dL Urine Occult Blood NEG Urine Nitrite NEG Urine Bilirubin NEG Urine Urobilinogen LESS THAN 2.0 MG/DL Urine Leukocyte Esterase NEG Urine RBC LESS THAN 1 /hpf Urine WBC LESS THAN 1 /hpf Urine Squamous Epithelial <1 /hpf Cells Urine Mucus FEW /lpf Microscopic Urinalysis Comment CULT NOT INDICATED Amylase Level 37 U/L Physical Exam General General Appearance: No Acute Distress, Comfortable Eyes Eye Exam: Pupils Equal, Pupils Reactive, Sclera White, Extraocular Movement Intact Throat Throat Exam: Oral Mucosa [place] & Moist, Oral Pharynx Normal Neck Neck Exam: Neck Supple, Trachea Midline Pulmonary Resp Exam: Clear Bilaterally, Breath Sounds Equal, No Distress Cardiology CV Exam: Regular, Normal Sinus Rhythm Gastrointestinal/Abdomen GI Exam: Soft GI Remarks epigastric tenderness. Musculoskeletal MS Exam: Normal Tone Integumentary Skin Exam: Clear, Warm, Dry Neurologic Neuro Exam: Alert, Awake, Oriented, Speech Clear, Moving All Extremities, No Focal Deficits Psychiatric Psych Exam: Appropriate Responses VTE Prophylaxis VTE Prophylaxis Meds: Heparin PUD Prophylasis PUD Prophylaxis: Protonix Assessment/Plan Assessment/Plan ASSESSMENT AND PLAN 1. Pancreatitis acute onset with epigastric abdominal pain. 2. History of hypertension. 3. Hypokalemia, mild. will replace and check magnasium level. 4. Acute kidney injury with dehydration 5. Epigastric pain, rule out any type of vascular event. 6. Bronchitis acute on chronic. 7. History of atrial fibrillation 8. Generalized weakness and physical deconditioning. We will monitor on cardiac telemetry. Vital signs will be q4 and as warranted. Activity will be out of bed ad edison, but with assistance. We will monitor her intake and output. The patient is currently on p.o. Lasix and we will continue her home medications. We will give her some normal saline for gentle hydration, pain management with IV meds, SCD's for DVT prophylaxis. GI input noted checked chest x-ray, aortic CTA and vascular ultrasound .. on Benadryl for her itching. This could be an allergic reaction We will monitor her symptoms. We will give her DuoNeb's q4 while awake as needed for her wheezing and bronchitis. O2 as needed. The patient is full code, full aggressive care and we will continue to monitor. Check CBC with diff CMP in AM. Discussed Condition with: Patient Kyler Meyer MD March 11, 2017 08:22
[2017-03-11] MEDS: RIVAROXABAN 20 MG TAB PO SCH (09:23)
[2017-03-11] MEDS: PRAVASTATIN SOD 40 MG TAB PO SCH (09:23)
[2017-03-11] MEDS: POTASSIUM CHLORIDE 25 MEQ EFFERVESCENT TAB PO SCH (09:23)
[2017-03-11] MEDS: FUROSEMIDE 20 MG TAB PO SCH ×2 (09:24→19:35)
[2017-03-11] MEDS: ASCORBIC ACID 500 MG TAB PO SCH (09:24)
[2017-03-11] MEDS: FERROUS SULFATE 325 MG (65 MG ELEMENTAL IRON) TAB PO SCH (09:24)
[2017-03-11] MEDS: HYDROCHLOROTHIAZIDE 25 MG TAB PO SCH (09:24)
[2017-03-11] MEDS: DRONEDARONE 400 MG TAB PO SCH (09:30)
[2017-03-11] MEDS ORDERED: POTASSIUM CHLORIDE 10 MEQ CONTROLLED RELEASE TAB PO ONE (10:00)
[2017-03-11] MEDS ORDERED: IOHEXOL 350 MG/ML 10 ML VIAL (for RAD DIAG) IV ONE (11:48)
[2017-03-11] MEDS: BENZONATATE 100 MG CAP PO PRN ×2 (12:00→19:35)
--- NOTE | 2017-03-11 12:03 | RADHPO ---
EXAM DATE/TIME: 03/11/2017 11:21 [facility] COMPARISON: No previous studies available for comparison. INDICATIONS : Nausea. IV CONTRAST: 85 cc Omnipaque 350 (iohexol) IV ORAL CONTRAST: Prescribed oral contrast ingested. RADIATION DOSE: 21.49 CTDIvol (mGy) MEDICAL HISTORY : Cardiovascular disease. Hernia, hiatal. Cystocele, rectocele. SURGICAL HISTORY : Cholecystectomy. Bladder mesh/sling. ENCOUNTER: Initial ACUITY: 2 days PAIN SCALE: 0/10 LOCATION: Bilateral upper quadrant TECHNIQUE: Volumetric scanning of the abdomen and pelvis was performed. Using automated exposure control and ad justment of the mA and/or kV according to patient size, radiation dose was kept as low as reasonably achievable to obtain optimal diagnostic quality images. FINDINGS: LOWER LUNGS: Mild atelectasis both lung bases. LIVER: Homogeneous density without lesion. There is no dilation of the biliary tree. Cholecystectomy clips. SPLEEN: Normal size without lesion. PANCREAS: Within normal limits. KIDNEYS: Normal in size and shape. There is no mass, stone or hydronephrosis. ADRENAL GLANDS: Within normal limits. VASCULAR: There is no aortic aneurysm. BOWEL/MESENTERY: There is a large hiatal hernia which includes portions of the pancreas and the colon. The stomach, s mall bowel, and colon demonstrate no acute abnormality. There is no free intraperitoneal air or flui d. ABDOMINAL WALL: Within normal limits. RETROPERITONEUM: There is no lymphadenopathy. BLADDER: No wall thickening or mass. REPRODUCTIVE: Within normal limits. INGUINAL: There is no lymphadenopathy or hernia. MUSCULOSKELETAL: Within normal limits for patient age. CONCLUSION: Status post cholecystectomy. Large hiatal hernia containing portions of the transverse colon and even the pancreas. Obinna Cisneros MD on March 11, 2017 at 11:58 Board Certified Radiologist. This report was verified electronically.
[2017-03-11] MEDS: cefTRIAXone INJ 1,000 MG in SODIUM CHLORIDE 0.9% INJ 100 ML IV SCH (16:15)
[2017-03-12] VITALS (10 sets, daily range): BP systolic 94–113; BP diastolic 52–68; PULSE 66–83; RESP 16–20; TEMP 98–100.3; O2SAT 93–98
[2017-03-12] MEDS: SODIUM CHLOR 0.9% 1000 ML INJ 1,000 ML IV SCH ×4 (04:30→23:59)
[2017-03-12 07:23] LABS: AUTOMATED NEUTROPHIL # 3.8 TH/MM3 (1.8-7.7); BASOPHIL % 0.3 % (0.0-2.0); EOSINOPHIL # 0.1 TH/MM3 (0-0.4); EOSINOPHIL % 1.9 % (0.0-4.0); HEMATOCRIT 29.4 % (35.0-46.0); LYMPH % 10.3 % (9.0-44.0); LYMPHOCYTE # 0.5 TH/MM3 (1.0-4.8); MEAN CELL VOLUME 90.1 FL (80.0-100.0); MEAN CORPUSCULAR HEMOGLOBIN 30.2 PG (27.0-34.0); MEAN CORPUSCULAR HGB CONC 33.5 % (32.0-36.0); MONO % 8.7 % (0.0-8.0); NEUT % 78.8 % (16.0-70.0); PLATELET COUNT 95 TH/MM3 (150-450); RED BLOOD COUNT 3.27 MIL/MM3 (4.00-5.30); RED CELL DISTRIBUTION WIDTH 14.3 % (11.6-17.2); WHITE BLOOD COUNT 4.8 TH/MM3 (4.0-11.0)
[2017-03-12 07:30] LABS: POTASSIUM 3.4 MEQ/L (3.5-5.1)
[2017-03-12 07:35] LABS: HEMO FLAGS AUTO DIFF
[2017-03-12] MEDS: RESP: ALBUTEROL 2.5 MG/IPRATROPIUM 0.5 MG NEB (SCH) NEB ×4 (07:42→19:18)
[2017-03-12 07:56] LABS: BICARBONATE 27.2 MEQ/L (21.0-32.0); CALCIUM-PROTEIN CORRECTED 7.8 MG/DL (8.5-10.1); TOTAL BILIRUBIN ADULT 0.7 MG/DL (0.2-1.0)
[2017-03-12 08:12] LABS: PLATELET ESTIMATE SMEAR LOW (NORMAL); PLATELET MORPHOLOGY NORMAL (NORMAL); SCAN/DIFF AUTO DIFF CONFIRMED
--- NOTE | 2017-03-12 08:28 | HHI.PR ---
Subjective History of Present Illness Patient still c/o abdominal pain have low potassium will replace and checked magnasium level...2.1 cardiology input noted... d/w family at bed side. Review of Systems Constitutional Constitutional: Fatigue, Weakness GI/Abdomen GI/Abdominal Exam: Nausea, Abdominal Pain Vitals/Results Intake & Output 03/11/17 03/11/17 03/12/17 15:00 23:00 07:00 Intake Total 2171 ml 1150 ml Balance 2171 ml 1150 ml Intake Oral 180 ml 0 ml IV Total 1991 ml 1150 ml # Voids 3 2 # Bowel Movements 0 0 Vital Signs Vital Signs Date Time Temp Pulse Resp B/P Pulse Ox O2 Delivery O2 Flow Rate FiO2 03/12/17 07:47 98 Nasal Cannula 2.00 03/12/17 04:00 99.8 76 16 103/58 95 03/12/17 00:00 100.2 75 16 113/68 93 03/11/17 20:05 85 03/11/17 20:00 92 Nasal Cannula 2.00 03/11/17 20:00 100.1 88 20 140/72 92 03/11/17 19:30 94 Nasal Cannula 2.00 03/11/17 16:00 98.0 82 18 128/60 97 03/11/17 15:23 93 Nasal Cannula 2.00 03/11/17 13:42 Room Air 03/11/17 12:00 99.5 96 20 135/60 96 CBC/BMP: 03/12/17 0535 03/12/17 0535 Lab Results Laboratory Tests Test 03/12/17 05:35 White Blood Count 4.8 TH/MM3 Red Blood Count 3.27 MIL/MM3 Hemoglobin 9.9 GM/DL Hematocrit 29.4 % Mean Corpuscular Volume 90.1 FL Mean Corpuscular Hemoglobin 30.2 PG Mean Corpuscular Hemoglobin 33.5 % Concent Red Cell Distribution Width 14.3 % Platelet Count 95 TH/MM3 Mean Platelet Volume 8.8 FL Neutrophils (%) (Auto) 78.8 % Lymphocytes (%) (Auto) 10.3 % Monocytes (%) (Auto) 8.7 % Eosinophils (%) (Auto) 1.9 % Basophils (%) (Auto) 0.3 % Neutrophils # (Auto) 3.8 TH/MM3 Lymphocytes # (Auto) 0.5 TH/MM3 Monocytes # (Auto) 0.4 TH/MM3 Eosinophils # (Auto) 0.1 TH/MM3 Basophils # (Auto) 0.0 TH/MM3 CBC Comment AUTO DIFF Differential Comment AUTO DIFF CONFIRMED Platelet Estimate LOW Platelet Morphology Comment NORMAL Hematology Comments Sodium Level 136 MEQ/L Potassium Level 3.4 MEQ/L Chloride Level 98 MEQ/L Carbon Dioxide Level 27.2 MEQ/L Anion Gap 11 MEQ/L Blood Urea Nitrogen 11 MG/DL Creatinine 0.64 MG/DL Estimat Glomerular Filtration 90 ML/MIN Rate Random Glucose 67 MG/DL Calcium Level 6.9 MG/DL Protein Corrected Calcium 7.8 MG/DL Total Bilirubin 0.7 MG/DL Aspartate Amino Transf 248 U/L (AST/SGOT) Alanine Aminotransferase 323 U/L (ALT/SGPT) Alkaline Phosphatase 158 U/L Total Protein 5.3 GM/DL Albumin 2.4 GM/DL Physical Exam General General Appearance: Well Developed, Well Nourished, No Acute Distress, Comfortable Eyes Eye Exam: Pupils Equal, Pupils Reactive, Sclera White, Extraocular Movement Intact Throat Throat Exam: Oral Mucosa [place] & Moist, Oral Pharynx Normal Neck Neck Exam: Neck Supple, Trachea Midline Pulmonary Resp Exam: Clear Bilaterally, Breath Sounds Equal, No Distress Cardiology CV Exam: Regular, Normal Sinus Rhythm Gastrointestinal/Abdomen GI Exam: Soft GI Remarks epigastric tenderness. Musculoskeletal MS Exam: Normal Tone Integumentary Skin Exam: Clear, Warm, Dry Neurologic Neuro Exam: Alert, Awake, Oriented, Speech Clear, Moving All Extremities, No Focal Deficits Psychiatric Psych Exam: Appropriate Responses VTE Prophylaxis VTE Prophylaxis Meds: Heparin PUD Prophylasis PUD Prophylaxis: Protonix Assessment/Plan Assessment/Plan ASSESSMENT AND PLAN 1. Pancreatitis acute onset with epigastric abdominal pain. 2. History of hypertension. 3. Hypokalemia, mild. will replace and checked magnasium level was 2.1 4. Acute kidney injury with dehydration 5. Epigastric pain, rule out any type of vascular event. 6. Bronchitis acute on chronic. 7. History of atrial fibrillation 8. Generalized weakness and physical deconditioning. We will monitor on cardiac telemetry. Vital signs will be q4 and as warranted. Activity will be out of bed ad edison, but with assistance. We will monitor her intake and output. The patient is currently on p.o. Lasix and we will continue her home medications. on normal saline for gentle hydration, pain management with IV meds, SCD's for DVT prophylaxis. GI input noted checked chest x-ray, aortic CTA and vascular ultrasound .. on Benadryl for her itching. This could be an allergic reaction We will monitor her symptoms. We will give her DuoNeb's q4 while awake as needed for her wheezing and bronchitis. O2 as needed. The patient is full code, full aggressive care and we will continue to monitor. Check CBC with diff CMP in AM. Discussed Condition with: Patient Kyler Meyer MD March 12, 2017 08:28 Kyler Meyer MD March 12, 2017 08:28
[2017-03-12] MEDS: BENZONATATE 100 MG CAP PO PRN ×2 (08:33→18:14)
[2017-03-12] MEDS: FERROUS SULFATE 325 MG (65 MG ELEMENTAL IRON) TAB PO SCH (08:34)
[2017-03-12] MEDS: PRAVASTATIN SOD 40 MG TAB PO SCH (08:34)
[2017-03-12] MEDS: FUROSEMIDE 20 MG TAB PO SCH ×2 (08:34→21:00)
[2017-03-12] MEDS: ACETAMINOPHEN 325 MG TAB PO PRN (08:34)
[2017-03-12] MEDS: ASCORBIC ACID 500 MG TAB PO SCH (08:35)
[2017-03-12] MEDS: DRONEDARONE 400 MG TAB PO SCH (08:35)
[2017-03-12] MEDS: RIVAROXABAN 20 MG TAB PO SCH (08:35)
[2017-03-12] MEDS: POTASSIUM CHLORIDE 25 MEQ EFFERVESCENT TAB PO SCH (08:36)
[2017-03-12] MEDS: HYDROCHLOROTHIAZIDE 25 MG TAB PO SCH (08:37)
--- NOTE | 2017-03-12 10:40 | MB ---
cc: MYRNA CABELLO M.D. DATE OF CONSULTATION: 03/12/2017 REASON FOR CONSULTATION: Keri is a very pleasant 76 year-old female with history of atrial fibrillation on Multaq. Admitted 03/10/2017, with a diagnosis of pancreatitis. The patient presented with four days of abdominal pain, epigastric pain rating to the back, otherwise denies any chest pain, shortness breath, fever, chills, cough, genitourinary bleeding, or orthopnea. PAST MEDICAL HISTORY: 1. History of hyperlipidemia 2. Hiatal hernia. 3. Headaches. 4. Hypertension. 5. History of pneumonia. 6. Cholecystectomy. 7. Mesh put in for bladder repair. 8. Cataract surgery 9. Rectocele, cystocele. SOCIAL HISTORY: Denies tobacco or alcohol use. ALLERGIES NONE. MEDICATIONS: Prior to admission; SOCIAL HISTORY Denies tobacco or alcohol use. ALLERGIES None. MEDICATIONS PRIOR TO ADMISSION 1. Lasix 20 b.i.d. 2. Xarelto 20 daily 3. Multaq 400 daily. 4. Vitamin C. 5. Simvastatin 20. 6. Hydrochlorothiazide 25 7. Iron 325 mg PHYSICAL EXAMINATION Blood pressure 103/58, pulse 76, temperature 99.8, respirations 16. Saturation 98% on two liters. IN GENERAL: She is alert and oriented in no acute distress. NECK: Supple. No JVD or bruit. CARDIOVASCULAR SYSTEM: S1, S2, No murmurs, rubs or gallops. LUNGS: Clear to auscultation bilaterally. ABDOMEN: Nondistended. EXTREMITIES: No lower extremity edema. LABORATORY FINDINGS: White count 4.8, hemoglobin 9.9, hematocrit 29.4, platelet count 95, sodium 136, potassium 3.4, chloride 98, BUN 11, creatinine 0.64, calcium 6.9, AST 240, ALT 323 troponin less than 0.02. Lipase is 1075, albumin is 2.4, INR is 1.0. MEDICATIONS IN HOSPITAL: 1. Also note medications in the hospital ascorbic acid 500 daily, Multaq 400 daily 2. Ferrous sulfate 325 3. HCTZ 25, 4. Pravastatin 40 daily, 5. Benadryl 25 p.r.n. 6. Lasix 20 b.i.d. 7. Ceftriaxone 8. Potassium, 9. bicarb 0.20 daily. RADIOLOGIC: Her head CT showed no evidence of acute intracranial pathology. No masses identified. A chest x-ray cardiomegaly, no acute pulmonary disease. CTA of the aorta no aortic aneurysm in this or dissection splenomegaly large hiatal hernia prior cholecystectomy. Abdominal pelvis CT status post cholecystectomy large hiatal hernia containing portions of the transverse colon Even the pancreas. Electrocardiogram normal sinus rhythm at 89 beats per minute. Left anterior fascicular block, inferior Q-waves, poor R-wave progression, lead reversal between 1 and aVL. FINAL DIAGNOSIS 1. Paroxysmal atrial fibrillation 2. pancreatitis 3. Elevated liver enzymes. 4. Thrombocytopenia. 5. Anemia. 6. Hypocalcemia. 7. Hypoalbuminemia. DISCUSSION At this point and time getting hematology consult given the anemia and not thrombocytopenia. The patient is not having obvious bleeding, we will continue Xarelto unless hematology recommends holding for now, continue telemetry monitoring. MD LUCINA Nguyen/yanique /9:48 AM /9:56 AM
--- NOTE | 2017-03-12 12:04 | HHI.GIFU ---
Subjective Remarks alert NAD left rib cage pain / tenderness ?2 to coughing low grade temp noted Objective Vitals I&O Vital Signs Date Time Temp Pulse Resp B/P Pulse Ox O2 Delivery O2 Flow Rate FiO2 03/12/17 09:00 Nasal Cannula 2.00 03/12/17 08:00 100.3 83 18 99/52 97 03/12/17 07:47 98 Nasal Cannula 2.00 03/12/17 04:00 99.8 76 16 103/58 95 03/12/17 00:00 100.2 75 16 113/68 93 03/11/17 20:05 85 03/11/17 20:00 92 Nasal Cannula 2.00 03/11/17 20:00 100.1 88 20 140/72 92 03/11/17 19:30 94 Nasal Cannula 2.00 03/11/17 16:00 98.0 82 18 128/60 97 03/11/17 15:23 93 Nasal Cannula 2.00 03/11/17 13:42 Room Air 03/11/17 12:00 99.5 96 20 135/60 96 I/O 03/11/17 03/11/17 03/11/17 03/12/17 03/12/17 03/12/17 07:00 15:00 23:00 07:00 15:00 23:00 Intake Total 2062 ml 2171 ml 1150 ml Balance 2062 ml 2171 ml 1150 ml Intake Oral 180 ml 180 ml 0 ml IV Total 1882 ml 1991 ml 1150 ml # Voids 4 3 2 # Bowel Movements 0 0 Laboratory Laboratory Tests Test 03/12/17 05:35 White Blood Count 4.8 Red Blood Count 3.27 Hemoglobin 9.9 Hematocrit 29.4 Mean Corpuscular Volume 90.1 Mean Corpuscular Hemoglobin 30.2 Mean Corpuscular Hemoglobin 33.5 Concent Red Cell Distribution Width 14.3 Platelet Count 95 Mean Platelet Volume 8.8 Neutrophils (%) (Auto) 78.8 Lymphocytes (%) (Auto) 10.3 Monocytes (%) (Auto) 8.7 Eosinophils (%) (Auto) 1.9 Basophils (%) (Auto) 0.3 Neutrophils # (Auto) 3.8 Lymphocytes # (Auto) 0.5 Monocytes # (Auto) 0.4 Eosinophils # (Auto) 0.1 Basophils # (Auto) 0.0 CBC Comment AUTO DIFF Differential Comment AUTO DIFF CONFIRMED Platelet Estimate LOW Platelet Morphology Comment NORMAL Hematology Comments Sodium Level 136 Potassium Level 3.4 Chloride Level 98 Carbon Dioxide Level 27.2 Anion Gap 11 Blood Urea Nitrogen 11 Creatinine 0.64 Estimat Glomerular Filtration 90 Rate Random Glucose 67 Calcium Level 6.9 Protein Corrected Calcium 7.8 Total Bilirubin 0.7 Aspartate Amino Transf 248 (AST/SGOT) Alanine Aminotransferase 323 (ALT/SGPT) Alkaline Phosphatase 158 Total Protein 5.3 Albumin 2.4 Imaging Last Impressions Abdomen/Pelvis CT 03/11/17 0000 Signed Impressions: Service Date/Time: February 11:21 - CONCLUSION: Status post cholecystectomy. Large hiatal hernia containing portions of the transverse colon and even the pancreas. Obinna Cisneros MD Head CT 03/10/17 0000 Signed Impressions: Service Date/Time: Friday, March 10, 2017 18:09 - CONCLUSION: 1. No evidence of acute intracranial pathology. No masses are identified. Joby Valencia MD Chest X-Ray 03/10/17 0000 Signed Impressions: Service Date/Time: Friday, March 10, 2017 12:09 - CONCLUSION: 1. Cardiomegaly. No acute pulmonary disease. Joby Valencia MD Aorta CTA 03/10/17 0000 Signed Impressions: Service Date/Time: Friday, March 10, 2017 10:56 - CONCLUSION: 1. No aortic aneurysm or dissection. 2. Splenomegaly. 3. Large hiatal hernia. 4. Prior cholecystectomy. Jerzy Angulo Jr., MD Physical Exam CHEST: Chest is clear to auscultation and percussion. CARDIAC: Regular rate and rhythm with no murmur gallop or rubs. ABDOMEN: Soft, nondistended, tenderness at inferior rib cage region ? costochondritis. ??? EXTREMITIES: No clubbing, cyanosis, or edema. SKIN: Normal; no rash; no jaundice. FIRER LOCOMOTIVE: No focal deficits; alert and oriented times three. Assessment and Plan Assessment: (1) Acute pancreatitis (2) Bronchitis (3) Elevated lipase (4) Abdominal pain (5) Elevated LFTs Plan Have added heat pad for rib cage pain.....med lfts ?? etiology If further increase consider MRCP as well.....NO Ductal dilation on CT study...lipase now down to normal...discussed w pt and Problem Qualifiers (1) Acute pancreatitis: Qualified Code: K85.90 - Acute pancreatitis, unspecified complication status, unspecified pancreatitis type Amish Ruiz MD March 12, 2017 12:04
[2017-03-12] MEDS: cefTRIAXone INJ 1,000 MG in SODIUM CHLORIDE 0.9% INJ 100 ML IV SCH (13:47)
[2017-03-12] MEDS: diphenhydrAMINE HCL 25 MG CAP PO PRN ×2 (14:36→22:57)
--- NOTE | 2017-03-12 17:26 | RADHPO ---
EXAM DATE/TIME: 03/12/2017 16:41 [facility] COMPARISON: CT ABDOMEN & PELVIS W CONTRAST, March 11, 2017, 11:21. INDICATIONS : Obstruction. MEDICAL HISTORY : Hypertension. SURGICAL HISTORY : Cholecystectomy. ENCOUNTER: Initial ACUITY: 1 day PAIN SCORE: 5/10 LOCATION: Right upper quadrant TECHNIQUE: Multiplanar, multisequence magnetic resonance imaging of the abdomen was performed. High-resolution 3D dataset was utilized to reconstruct maximum-intensity projection (MIP) images. FINDINGS: The liver and spleen are normal in size and no focal defects are identified. A moderate size hiatal h ernia is present. Transverse colon also projects into the hernia defect. The adrenal glands and kidne ys appear normal bilaterally. No hydronephrosis or mass lesions are identified. MRCP demonstrates dilatation of common bile duct to 14 mm but no stone is identified. No stricture is evident. The gallbladder is surgically absent. CONCLUSION: 1. Common duct dilatation without evidence of stone. 2. Joby Valencia MD on March 12, 2017 at 17:21 Board Certified Radiologist. This report was verified electronically.
[2017-03-12] MEDS ORDERED: CALCIUM GLUCONATE INJ 1 GM in DEXTROSE 5% IN WATER 100ML INJ 100 ML IV ONE ×2 (18:30)
[2017-03-12] MEDS ORDERED: MEPERIDINE HCL 25 MG/ML VIAL IM ONE (18:30)
[2017-03-12] MEDS ORDERED: MEPERIDINE HCL 25 MG/ML VIAL IV PUSH PRN (19:00)
[2017-03-12] MEDS ORDERED: ACETAMINOPHEN 325 MG TAB PO ONE (20:00)
--- NOTE | 2017-03-12 20:02 | MB ---
cc: MYRNA CABELLO M.D., EJAZ MD DEVERAS, RUBY ANNE E. M.D. 1940 DATE OF SERVICE 03/12/[address] Kyler Meyer CHIEF COMPLAINT Dr. Cabello requests a consultation for Mrs. Lugo regarding anemia associated with Xarelto. HISTORY OF PRESENT ILLNESS Mrs. Lugo is a 76-year-old woman with multiple medical problems. She is a well-known patient to Dr. Sherine Sandoval in the community. She has a history of atrial fibrillation for which she has been on Xarelto and Multaq for at least two years. She has hyperlipidemia, gastroesophageal reflux but denies heartburn symptoms. She has a presence of a large hiatal hernia which was evaluated recently. She has had discussion with Dr. Sandoval and her financial consultant, Dr. Bonilla, who agreed that the hiatal hernia needs to be repaired. She had a consultation with Dr. Roblero who deferred correction of hiatal hernia at present. She describes a chronic dry cough over the last month. It has become progressively worse. She has been diagnosed with asthma. She denies any wheezing. She has coughed so much that she has hurt her left ribs. She gets into a cough fit and it makes her terribly uncomfortable. She came into the emergency room with chest pains on 03/08. She had some epigastric abdominal pain radiating to the back. She had already started having pruritic symptoms. She felt better after a dose of Decadron and Benadryl. Her itching was attributed to some allergic reaction to hair dye. She came back on 03/10/2017 with the abdominal pain, epigastric in nature, radiating to the back. Laboratory evaluation revealed a significantly elevated lipase. She was admitted under observation because of the pancreatitis. Her potassium was decreased. She had mild dehydration. She was seen by Dr. Amish Ruiz who suggested that Multaq has been associated with itching and pancreatitis in a number of cases. Dr. Cabello was consulted. He confirms the patient with paroxysmal atrial fibrillation. She currently has anemia and thrombocytopenia with no overt bleeding. Hematology was consulted. Dr. Cabello discussed with the patient possibility if holding off on the Multaq. Multaq continues and has not been discontinued. Her main complaint is related to the rib pain. She had a fit of pain earlier. She was too hypotensive to tolerate the morphine ordered for her. Tessalon Perles have helped with the cough. She has developed a low grade temperature of 100.3. She was febrile up to 101.9. She is on antibiotic therapy. Cultures have not been obtained. She describes an episode of circumoral paresthesias, paresthesias of the arm earlier. She was noted to have a calcium of 6.9. Her liver functions are elevated including alkaline phosphatase. Total bilirubin was normal. She denies being jaundiced. From hematology standpoint, review of the electronic medical record shows a normal hemoglobin dating back to 2002. Her hemoglobin was normal during the ER visit on March 08, 2017. Her hemoglobin had trended down to hemoglobin of 9.9. Her platelet count had trended down to a platelet count of 95,000 starting at 165,000. Her platelet count was 216 on March 08, 2017. For this reason, Hematology/Oncology is consulted. PAST MEDICAL HISTORY 1. Recurrent acute pancreatitis. 2. Hyperlipidemia, 3. Hiatal hernia 4. Headache, 5. Hypertension 6. History of pneumonia 7. Dry violent cough. 8. Arthritis, 9. Gastroesophageal reflux, 10. Hiatal hernia. PAST SURGICAL HISTORY 1. Mesh for bladder repair, 2. Cataract surgery 3. Rectocele and cystocele surgery, 4. Cholecystectomy 5. Benign cysts excision from breast. ALLERGIES NO KNOWN DRUG ALLERGIES. SOCIAL HISTORY She is , lives with her . She denies any tobacco, alcohol or illicit drug use. FAMILY HISTORY Both parents of coronary artery disease. Mother at age 81. Father at age 74. MEDICATIONS Current, 1. Tessalon Perles. 2. Vitamin C 3. Multaq 4. Ferrous sulfate 5. HydroDIURIL 6. Pravachol 7. Benadryl. 8. Lasix. 9. Tylenol. 10. Ceftriaxone. 11. Ipratropium/Albuterol. 12. DuoNebs. 13. Morphine 14. Ondansetron 15. Benadryl IMAGING STUDIES CTA shows no aortic aneurysm or dissection. There is noted to be splenomegaly, large hiatal hernia. CT scan of the abdomen shows a large hiatal hernia containing portions of the transverse colon and even pancreas. Cholangiopancreatography MRI common duct without evidence of stone. PHYSICAL EXAMINATION VITAL SIGNS: Temperature 99.1, heart rate 66, respiratory rate 18, blood pressure 94/52, saturation 95%. GENERAL: Ms. Lugo is a 76-year-old woman who looks uncomfortable. She went into a coughing fit and had significant discomfort in the left rib. Her cough is uncontrollable, nonproductive. HEENT: Pupils are round, reactive to light and accommodation. Sclerae nonicteric. Oropharynx is clear. NECK: Supple. LUNGS: Clear. CARDIOVASCULAR: Reveals rate-controlled rhythm. ABDOMEN: Large and benign EXTREMITIES: Lower extremities with no edema. NEUROLOGIC: Exam is nonfocal. She has localized pain in the left lower ribs. LABORATORY DATA Hemoglobin 9.9, platelet count 95,000. Coags from 03/10 shows a PT, PTT that is normal. ASSESSMENT/PLAN Mrs. Lugo is a 76-year-old woman with multiple medical problems. She has a history of recurrent acute pancreatitis, atrial fibrillation/paroxysmal atrial fibrillation, cardiovascular disease, hyperlipidemia, large hiatal hernia containing pancreas and large bowel, gastroesophageal reflux and arthritis. She has a chronic cough from bronchitis. She is admitted for abdominal pain associated pancreatitis. Hematology/Oncology is consulted for the anemia and thrombocytopenia. Review of the evaluation above suggests the thrombocytopenia may stem from the splenomegaly. She has no signs of liver disease by imaging study, but splenomegaly is present. The splenomegaly has occurred since her hospitalization. Her platelet count has trended down. There is no overt bleeding. She is also noted to have a decrease in hemoglobin. I am concerned about iron deficiency given the large hiatal hernia as the etiology of blood loss or iron deficiency. Her Xarelto is continued for anticoagulant therapy for paroxysmal atrial fibrillation. In light of her itching symptoms, abdominal pain, liver function elevation, I recommend stopping the Xarelto as there are a lot of GI toxicities associated with Xarelto. We discussed switching over to apixaban. Xarelto is placed on hold. Her apixaban will not be started until tomorrow evening. We will monitor her symptoms. She had overt symptoms associated with hypercalcemia. Calcium IV is going to be administered. She will be supported for the hypocalcemia with Tums twice a day. This may help her hiatal hernia. We discussed empiric trial of proton pump inhibitor to see if this may help with her cough. Treatment of the cough for asthma with respiratory treatment has not helped. Her pain medication is available. She had increasing temperature. We will obtain blood cultures x2 for temperature greater than 100.5. Pain regimen is available for her rib pain. Tessalon Perles are available. We will monitor closely for any bleeding. Iron studies will be obtained, but would be difficult to interpret in light of the concurrent oral iron supplementation. Her questions were answered to her satisfaction. Pat Zeng MD RAD/SA /6:37 PM /7:35 PM
[2017-03-12] MEDS: PANTOPRAZOLE SOD 20 MG DELAYED RELEASE TAB PO SCH (20:23)
[2017-03-12] MEDS: CALCIUM CARBONATE 500 MG CHEWABLE TAB CHEW SCH (20:24)
[2017-03-12 21:35] LABS: APTT (PATIENT) 38.7 SEC (24.3-30.1); INTERNATIONAL NORMALIZED RATIO 1.3 RATIO
[2017-03-12 21:38] LABS: HEMATOCRIT 27.9 % (35.0-46.0); MEAN CELL VOLUME 90.7 FL (80.0-100.0); MEAN CORPUSCULAR HGB CONC 33.1 % (32.0-36.0); PLATELET COUNT 100 TH/MM3 (150-450); RED BLOOD COUNT 3.07 MIL/MM3 (4.00-5.30); RED CELL DISTRIBUTION WIDTH 13.9 % (11.6-17.2); REVIEW FLAG FINAL; WHITE BLOOD COUNT 3.9 TH/MM3 (4.0-11.0)
[2017-03-13] VITALS (10 sets, daily range): BP systolic 98–121; BP diastolic 54–65; PULSE 20–83; RESP 18–20; TEMP 95.4–98.6; O2SAT 93–99
[2017-03-13 06:59] LABS: AUTOMATED NEUTROPHIL # 2.5 TH/MM3 (1.8-7.7); BASOPHIL % 0.2 % (0.0-2.0); EOSINOPHIL # 0.1 TH/MM3 (0-0.4); HEMATOCRIT 29.1 % (35.0-46.0); HEMO FLAGS DIFF FINAL; LYMPH % 13.3 % (9.0-44.0); LYMPHOCYTE # 0.5 TH/MM3 (1.0-4.8); MEAN CELL VOLUME 88.9 FL (80.0-100.0); MEAN CORPUSCULAR HEMOGLOBIN 29.9 PG (27.0-34.0); MEAN CORPUSCULAR HGB CONC 33.6 % (32.0-36.0); MONO % 11.4 % (0.0-8.0); NEUT % 71.1 % (16.0-70.0); PLATELET COUNT 103 TH/MM3 (150-450); RED BLOOD COUNT 3.27 MIL/MM3 (4.00-5.30); RED CELL DISTRIBUTION WIDTH 13.9 % (11.6-17.2); WHITE BLOOD COUNT 3.5 TH/MM3 (4.0-11.0)
[2017-03-13 07:22] LABS: ALKALINE PHOSPHATASE 126 U/L (45-117); ALT (GPT) 196 U/L (10-53); ANION GAP 6 MEQ/L (5-15); AST (GOT) 89 U/L (15-37); BICARBONATE 30.3 MEQ/L (21.0-32.0); BLOOD UREA NITROGEN 6 MG/DL (7-18); CHLORIDE 106 MEQ/L (98-107); GLOMERULAR FILTRATION RATE 135 ML/MIN (>89); POTASSIUM 3.6 MEQ/L (3.5-5.1); SODIUM (NA) 142 MEQ/L (136-145); TOTAL BILIRUBIN ADULT 0.5 MG/DL (0.2-1.0)
[2017-03-13] MEDS: RESP: ALBUTEROL 2.5 MG/IPRATROPIUM 0.5 MG NEB (SCH) NEB ×4 (07:37→19:11)
[2017-03-13] MEDS: PANTOPRAZOLE SOD 20 MG DELAYED RELEASE TAB PO SCH (08:01)
[2017-03-13] MEDS: FUROSEMIDE 20 MG TAB PO SCH ×2 (08:01→21:23)
[2017-03-13] MEDS: diphenhydrAMINE HCL 25 MG CAP PO PRN ×3 (08:02→22:51)
[2017-03-13] MEDS: ASCORBIC ACID 500 MG TAB PO SCH (08:02)
[2017-03-13] MEDS: DRONEDARONE 400 MG TAB PO SCH (08:03)
[2017-03-13] MEDS: PRAVASTATIN SOD 40 MG TAB PO SCH (08:03)
[2017-03-13] MEDS: CALCIUM CARBONATE 500 MG CHEWABLE TAB CHEW SCH ×2 (08:04→21:21)
[2017-03-13] MEDS: POTASSIUM CHLORIDE 25 MEQ EFFERVESCENT TAB PO SCH (08:05)
[2017-03-13] MEDS: CALCIUM CARBONATE 1.25 GM (CA 500 MG) TAB PO SCH ×2 (08:06→21:23)
[2017-03-13] MEDS: HYDROCHLOROTHIAZIDE 25 MG TAB PO SCH (08:09)
[2017-03-13] MEDS: SODIUM CHLOR 0.9% 1000 ML INJ 1,000 ML IV SCH ×3 (08:10→21:22)
--- NOTE | 2017-03-13 09:24 | HHI.PR ---
Subjective History of Present Illness Patient abdominal pain ..better low potassium resolved Multaq and Xarelto discontinued cardiology/ hematology input noted... d/w family at bed side. D/ W [facility] [place] at bed side. Review of Systems Constitutional Constitutional: Fatigue, Weakness GI/Abdomen GI/Abdominal Exam: Nausea, Abdominal Pain Vitals/Results Intake & Output 03/12/17 03/12/17 03/13/17 15:00 23:00 07:00 Intake Total 1092 ml Output Total 3000 ml Balance 1092 ml -3000 ml IV Total 1092 ml Output Urine Total 3000 ml # Voids 2 4 1 # Bowel Movements 0 Vital Signs Vital Signs Date Time Temp Pulse Resp B/P Pulse Ox O2 Delivery O2 Flow Rate FiO2 03/13/17 07:38 95 21 03/13/17 04:00 98.0 65 20 109/62 99 03/13/17 00:23 98.6 67 18 111/58 97 03/12/17 23:00 76 03/12/17 22:50 94 Nasal Cannula 2.00 03/12/17 21:14 99.7 82 20 102/53 96 03/12/17 19:18 95 Nasal Cannula 2.00 03/12/17 18:28 99.1 03/12/17 16:00 98.9 70 18 110/61 96 03/12/17 12:00 98.0 66 18 94/52 95 CBC/BMP: 03/13/17 0626 03/13/17 0626 Lab Results Laboratory Tests Test 03/12/17 03/12/17 03/13/17 19:45 21:10 06:26 White Blood Count 3.9 TH/MM3 3.5 TH/MM3 Red Blood Count 3.07 MIL/MM3 3.27 MIL/MM3 Hemoglobin 9.2 GM/DL 9.8 GM/DL Hematocrit 27.9 % 29.1 % Mean Corpuscular Volume 90.7 FL 88.9 FL Mean Corpuscular Hemoglobin 30.0 PG 29.9 PG Mean Corpuscular Hemoglobin 33.1 % 33.6 % Concent Red Cell Distribution Width 13.9 % 13.9 % Platelet Count 100 TH/MM3 103 TH/MM3 Mean Platelet Volume 7.2 FL 8.5 FL Calcium Level 7.4 MG/DL 7.5 MG/DL Prothrombin Time 15.0 SEC Prothromb Time International 1.3 RATIO Ratio Activated Partial 38.7 SEC Thromboplast Time Fibrinogen 415 mg/dL Neutrophils (%) (Auto) 71.1 % Lymphocytes (%) (Auto) 13.3 % Monocytes (%) (Auto) 11.4 % Eosinophils (%) (Auto) 4.0 % Basophils (%) (Auto) 0.2 % Neutrophils # (Auto) 2.5 TH/MM3 Lymphocytes # (Auto) 0.5 TH/MM3 Monocytes # (Auto) 0.4 TH/MM3 Eosinophils # (Auto) 0.1 TH/MM3 Basophils # (Auto) 0.0 TH/MM3 CBC Comment DIFF FINAL Differential Comment Sodium Level 142 MEQ/L Potassium Level 3.6 MEQ/L Chloride Level 106 MEQ/L Carbon Dioxide Level 30.3 MEQ/L Anion Gap 6 MEQ/L Blood Urea Nitrogen 6 MG/DL Creatinine 0.45 MG/DL Estimat Glomerular Filtration 135 ML/MIN Rate Random Glucose 104 MG/DL Total Bilirubin 0.5 MG/DL Aspartate Amino Transf 89 U/L (AST/SGOT) Alanine Aminotransferase 196 U/L (ALT/SGPT) Alkaline Phosphatase 126 U/L Total Protein 5.3 GM/DL Albumin 2.3 GM/DL Microbiology Microbiology 03/12/17 Aerobic Blood Culture, Received Pending 03/12/17 Anaerobic Blood Culture, Received Pending 03/12/17 Aerobic Blood Culture, Received Pending 03/12/17 Anaerobic Blood Culture, Received Pending Physical Exam General General Appearance: Well Developed, Well Nourished, No Acute Distress, Comfortable Eyes Eye Exam: Pupils Equal, Pupils Reactive, Sclera White, Extraocular Movement Intact Throat Throat Exam: Oral Mucosa [place] & Moist, Oral Pharynx Normal Neck Neck Exam: Neck Supple, Trachea Midline Pulmonary Resp Exam: Clear Bilaterally, Breath Sounds Equal, No Distress Cardiology CV Exam: Regular, Normal Sinus Rhythm Gastrointestinal/Abdomen GI Exam: Soft GI Remarks epigastric tenderness. Musculoskeletal MS Exam: Normal Tone Integumentary Skin Exam: Clear, Warm, Dry Neurologic Neuro Exam: Alert, Awake, Oriented, Speech Clear, Moving All Extremities, No Focal Deficits Psychiatric Psych Exam: Appropriate Responses VTE Prophylaxis VTE Prophylaxis Meds: Heparin PUD Prophylasis PUD Prophylaxis: Protonix Assessment/Plan Assessment/Plan ASSESSMENT AND PLAN 1. Pancreatitis acute onset with epigastric abdominal pain. most likely secondary to multaq ...which was discontinued. 2. History of hypertension. 3. Hypokalemia, resolved.. checked magnasium level was 2.1 4. Acute kidney injury with dehydration 5. Epigastric pain, rule out any type of vascular event. 6. Bronchitis acute on chronic. 7. History of atrial fibrillation 8. Generalized weakness and physical deconditioning. We will monitor on cardiac telemetry. Vital signs will be q4 and as warranted. Activity will be out of bed ad edison, but with assistance. We will monitor her intake and output. The patient is currently on PO Lasix and we will continue her home medications. on normal saline for gentle hydration, pain management with IV meds, SCD's for DVT prophylaxis. GI input noted checked chest x-ray, aortic CTA and vascular ultrasound .. on Benadryl for her itching. This could be an allergic reaction We will monitor her symptoms. We will give her DuoNeb's q4 while awake as needed for her wheezing and bronchitis. O2 as needed. The patient is full code, full aggressive care and we will continue to monitor. Dicontinued Xarelto and Multaq. Check CBC with diff CMP in AM. Discussed Condition with: Patient Kyler Meyer MD March 13, 2017 09:24
[2017-03-13 10:57] LABS: TRANSFERRIN IRON PROFILE 131 MG/DL (200-360)
[2017-03-13 11:00] LABS: FERRITIN 727 NG/ML (8-252)
--- NOTE | 2017-03-13 11:51 | PD.CARD.PN ---
Subjective Subjective Remarks alert in nad Objective Medications alert in nad Vital Signs / I&O Vital Signs Date Time Temp Pulse Resp B/P Pulse Ox O2 Delivery O2 Flow Rate FiO2 03/13/17 08:00 96.6 80 20 121/65 93 03/13/17 07:38 95 21 03/13/17 04:00 98.0 65 20 109/62 99 03/13/17 00:23 98.6 67 18 111/58 97 03/12/17 23:00 76 03/12/17 22:50 94 Nasal Cannula 2.00 03/12/17 21:14 99.7 82 20 102/53 96 03/12/17 19:18 95 Nasal Cannula 2.00 03/12/17 18:28 99.1 03/12/17 16:00 98.9 70 18 110/61 96 03/12/17 12:00 98.0 66 18 94/52 95 I/O 03/12/17 03/12/17 03/12/17 03/13/17 03/13/17 03/13/17 07:00 15:00 23:00 07:00 15:00 23:00 Intake Total 1150 ml 1092 ml Output Total 3000 ml Balance 1150 ml 1092 ml -3000 ml Intake Oral 0 ml IV Total 1150 ml 1092 ml Output Urine Total 3000 ml # Voids 2 2 4 1 # Bowel Movements 0 0 Laboratory GENERAL: SKIN: Warm and dry. HEAD: Normocephalic. EYES: No scleral icterus. No injection or drainage. NECK: Supple, trachea midline. No JVD or lymphadenopathy. CARDIOVASCULAR: Regular rate and rhythm without murmurs, gallops, or rubs. RESPIRATORY: Breath sounds equal bilaterally. No accessory muscle use. GASTROINTESTINAL: Abdomen soft, non-tender, nondistended. MUSCULOSKELETAL: No cyanosis, or edema. BACK: Nontender without obvious deformity. No CVA tenderness. Laboratory Tests Test 03/12/17 03/12/17 03/13/17 19:45 21:10 06:26 White Blood Count 3.9 TH/MM3 3.5 TH/MM3 Red Blood Count 3.07 MIL/MM3 3.27 MIL/MM3 Hemoglobin 9.2 GM/DL 9.8 GM/DL Hematocrit 27.9 % 29.1 % Mean Corpuscular Volume 90.7 FL 88.9 FL Mean Corpuscular Hemoglobin 30.0 PG 29.9 PG Mean Corpuscular Hemoglobin 33.1 % 33.6 % Concent Red Cell Distribution Width 13.9 % 13.9 % Platelet Count 100 TH/MM3 103 TH/MM3 Mean Platelet Volume 7.2 FL 8.5 FL Calcium Level 7.4 MG/DL 7.5 MG/DL Prothrombin Time 15.0 SEC Prothromb Time International 1.3 RATIO Ratio Activated Partial 38.7 SEC Thromboplast Time Fibrinogen 415 mg/dL Neutrophils (%) (Auto) 71.1 % Lymphocytes (%) (Auto) 13.3 % Monocytes (%) (Auto) 11.4 % Eosinophils (%) (Auto) 4.0 % Basophils (%) (Auto) 0.2 % Neutrophils # (Auto) 2.5 TH/MM3 Lymphocytes # (Auto) 0.5 TH/MM3 Monocytes # (Auto) 0.4 TH/MM3 Eosinophils # (Auto) 0.1 TH/MM3 Basophils # (Auto) 0.0 TH/MM3 CBC Comment DIFF FINAL Differential Comment Sodium Level 142 MEQ/L Potassium Level 3.6 MEQ/L Chloride Level 106 MEQ/L Carbon Dioxide Level 30.3 MEQ/L Anion Gap 6 MEQ/L Blood Urea Nitrogen 6 MG/DL Creatinine 0.45 MG/DL Estimat Glomerular Filtration 135 ML/MIN Rate Random Glucose 104 MG/DL Iron Level 30 MCG/DL Total Iron Binding Capacity 183 MCG/DL Percent Iron Saturation 16.4 % Ferritin 727 NG/ML Total Bilirubin 0.5 MG/DL Aspartate Amino Transf 89 U/L (AST/SGOT) Alanine Aminotransferase 196 U/L (ALT/SGPT) Alkaline Phosphatase 126 U/L Total Protein 5.3 GM/DL Albumin 2.3 GM/DL Assessment and Plan Problem List: (1) Nausea & vomiting (2) Diarrhea (3) Atrial fibrillation (4) Acute pancreatitis (5) Elevated LFTs Assessment and Plan 1.) PAF - in nsr on ekg, assymptomatic, hold multaq, ok to change xarelto to tarik eduardo/debbie patient, her family and nurse, continue telemetry Problem Qualifiers (1) Acute pancreatitis: Qualified Code: K85.90 - Acute pancreatitis, unspecified complication status, unspecified pancreatitis type Garrett Urbina MD March 13, 2017 11:51
--- NOTE | 2017-03-13 12:22 | HHI.GIFU ---
Subjective Remarks Alert Nad feeling better today afebrile at present some runny stools Objective Vitals I&O Vital Signs Date Time Temp Pulse Resp B/P Pulse Ox O2 Delivery O2 Flow Rate FiO2 03/13/17 08:00 96.6 80 20 121/65 93 03/13/17 07:38 95 21 03/13/17 04:00 98.0 65 20 109/62 99 03/13/17 00:23 98.6 67 18 111/58 97 03/12/17 23:00 76 03/12/17 22:50 94 Nasal Cannula 2.00 03/12/17 21:14 99.7 82 20 102/53 96 03/12/17 19:18 95 Nasal Cannula 2.00 03/12/17 18:28 99.1 03/12/17 16:00 98.9 70 18 110/61 96 I/O 03/12/17 03/12/17 03/12/17 03/13/17 03/13/17 03/13/17 07:00 15:00 23:00 07:00 15:00 23:00 Intake Total 1150 ml 1092 ml Output Total 3000 ml Balance 1150 ml 1092 ml -3000 ml Intake Oral 0 ml IV Total 1150 ml 1092 ml Output Urine Total 3000 ml # Voids 2 2 4 1 # Bowel Movements 0 0 Laboratory Laboratory Tests Test 03/12/17 03/12/17 03/13/17 19:45 21:10 06:26 White Blood Count 3.9 3.5 Red Blood Count 3.07 3.27 Hemoglobin 9.2 9.8 Hematocrit 27.9 29.1 Mean Corpuscular Volume 90.7 88.9 Mean Corpuscular Hemoglobin 30.0 29.9 Mean Corpuscular Hemoglobin 33.1 33.6 Concent Red Cell Distribution Width 13.9 13.9 Platelet Count 100 103 Mean Platelet Volume 7.2 8.5 Calcium Level 7.4 7.5 Prothrombin Time 15.0 Prothromb Time International 1.3 Ratio Activated Partial 38.7 Thromboplast Time Fibrinogen 415 Neutrophils (%) (Auto) 71.1 Lymphocytes (%) (Auto) 13.3 Monocytes (%) (Auto) 11.4 Eosinophils (%) (Auto) 4.0 Basophils (%) (Auto) 0.2 Neutrophils # (Auto) 2.5 Lymphocytes # (Auto) 0.5 Monocytes # (Auto) 0.4 Eosinophils # (Auto) 0.1 Basophils # (Auto) 0.0 CBC Comment DIFF FINAL Differential Comment Sodium Level 142 Potassium Level 3.6 Chloride Level 106 Carbon Dioxide Level 30.3 Anion Gap 6 Blood Urea Nitrogen 6 Creatinine 0.45 Estimat Glomerular Filtration 135 Rate Random Glucose 104 Iron Level 30 Total Iron Binding Capacity 183 Percent Iron Saturation 16.4 Ferritin 727 Total Bilirubin 0.5 Aspartate Amino Transf 89 (AST/SGOT) Alanine Aminotransferase 196 (ALT/SGPT) Alkaline Phosphatase 126 Total Protein 5.3 Albumin 2.3 Date/Time Procedure Status Source Growth 03/12/17 21:10 Aerobic Blood Culture - Preliminary Resulted Blood Peripheral NO GROWTH IN 1 DAY 03/12/17 21:10 Anaerobic Blood Culture - Preliminary Resulted Blood Peripheral NO GROWTH IN 1 DAY Imaging Last Impressions Cholangiopancreatography MRI 03/12/17 0000 Signed Impressions: Service Date/Time: Sunday, March 12, 2017 16:41 - CONCLUSION: 1. Common duct dilatation without evidence of stone. 2. Joby Valencia MD Abdomen/Pelvis CT 03/11/17 0000 Signed Impressions: Service Date/Time: February 11:21 - CONCLUSION: Status post cholecystectomy. Large hiatal hernia containing portions of the transverse colon and even the pancreas. Obinna Cisneros MD Head CT 03/10/17 0000 Signed Impressions: Service Date/Time: Friday, March 10, 2017 18:09 - CONCLUSION: 1. No evidence of acute intracranial pathology. No masses are identified. Joby Valencia MD Chest X-Ray 03/10/17 0000 Signed Impressions: Service Date/Time: Friday, March 10, 2017 12:09 - CONCLUSION: 1. Cardiomegaly. No acute pulmonary disease. Joby Valencia MD Aorta CTA 03/10/17 0000 Signed Impressions: Service Date/Time: Friday, March 10, 2017 10:56 - CONCLUSION: 1. No aortic aneurysm or dissection. 2. Splenomegaly. 3. Large hiatal hernia. 4. Prior cholecystectomy. Jerzy Angulo Jr., MD Physical Exam CHEST: Chest is clear to auscultation and percussion. CARDIAC: Regular rate and rhythm with no murmur gallop or rubs. ABDOMEN: Soft, nondistended, no tenderness at rib cage EXTREMITIES: No clubbing, cyanosis, or edema. SKIN: Normal; no rash; no jaundice. SALES OPERATIONS DIRECTOR: No focal deficits; alert and oriented times three. Assessment and Plan Assessment: (1) Acute pancreatitis (2) Bronchitis (3) Elevated lipase (4) Abdominal pain (5) Elevated LFTs Plan Mrcp without cbd stones..;LFTS trending downward..?cause of fever?? cultures neg so far cont current therapy [place]q DCd per Cardiology as this could be cause of chemical pancreatitis Problem Qualifiers (1) Acute pancreatitis: Qualified Code: K85.90 - Acute pancreatitis, unspecified complication status, unspecified pancreatitis type Amish Ruiz MD March 13, 2017 12:22
[2017-03-13] MEDS: cefTRIAXone INJ 1,000 MG in SODIUM CHLORIDE 0.9% INJ 100 ML IV SCH (13:50)
[2017-03-13] MEDS: BENZONATATE 100 MG CAP PO PRN ×2 (16:43→22:52)
[2017-03-13] MEDS: APIXABAN 2.5 MG TABLET PO SCH (21:22)
[2017-03-14] VITALS (7 sets, daily range): BP systolic 102–134; BP diastolic 57–76; PULSE 72–80; RESP 18–20; TEMP 96.6–98.1; O2SAT 91–98
[2017-03-14] MEDS: ACETAMINOPHEN 325 MG TAB PO PRN (00:23)
[2017-03-14] MEDS: SODIUM CHLOR 0.9% 1000 ML INJ 1,000 ML IV SCH ×4 (03:02→23:06)
[2017-03-14] MEDS: diphenhydrAMINE HCL 25 MG CAP PO PRN ×3 (04:37→21:06)
[2017-03-14] MEDS: RESP: ALBUTEROL 2.5 MG/IPRATROPIUM 0.5 MG NEB (SCH) NEB ×2 (07:44→11:19)
[2017-03-14 07:49] LABS: AUTOMATED NEUTROPHIL # 1.8 TH/MM3 (1.8-7.7); BASOPHIL % 0.2 % (0.0-2.0); EOSINOPHIL # 0.2 TH/MM3 (0-0.4); EOSINOPHIL % 4.7 % (0.0-4.0); HEMO FLAGS DIFF FINAL; LYMPHOCYTE # 0.9 TH/MM3 (1.0-4.8); MEAN CELL VOLUME 89.5 FL (80.0-100.0); MEAN CORPUSCULAR HEMOGLOBIN 30.3 PG (27.0-34.0); MEAN CORPUSCULAR HGB CONC 33.8 % (32.0-36.0); MONO % 11.6 % (0.0-8.0); NEUT % 55.5 % (16.0-70.0); PLATELET COUNT 118 TH/MM3 (150-450); RED BLOOD COUNT 3.13 MIL/MM3 (4.00-5.30); RED CELL DISTRIBUTION WIDTH 13.4 % (11.6-17.2); WHITE BLOOD COUNT 3.3 TH/MM3 (4.0-11.0)
[2017-03-14 08:07] LABS: ALKALINE PHOSPHATASE 106 U/L (45-117); ALT (GPT) 139 U/L (10-53); ANION GAP 7 MEQ/L (5-15); AST (GOT) 42 U/L (15-37); BICARBONATE 30.5 MEQ/L (21.0-32.0); BLOOD UREA NITROGEN 3 MG/DL (7-18); CHLORIDE 108 MEQ/L (98-107); GLOMERULAR FILTRATION RATE 107 ML/MIN (>89); SODIUM (NA) 145 MEQ/L (136-145); TOTAL BILIRUBIN ADULT 0.5 MG/DL (0.2-1.0)
[2017-03-14 08:16] LABS: POTASSIUM 2.9 MEQ/L (3.5-5.1)
[2017-03-14] MEDS: CALCIUM CARBONATE 500 MG CHEWABLE TAB CHEW SCH ×2 (08:34→21:07)
[2017-03-14] MEDS: POTASSIUM CHLORIDE 25 MEQ EFFERVESCENT TAB PO SCH (08:34)
[2017-03-14] MEDS: PRAVASTATIN SOD 40 MG TAB PO SCH (08:35)
[2017-03-14] MEDS: PANTOPRAZOLE SOD 20 MG DELAYED RELEASE TAB PO SCH (08:35)
[2017-03-14] MEDS: ASCORBIC ACID 500 MG TAB PO SCH (08:35)
[2017-03-14] MEDS: FUROSEMIDE 20 MG TAB PO SCH ×2 (08:35→21:08)
[2017-03-14] MEDS: APIXABAN 2.5 MG TABLET PO SCH ×2 (08:35→21:08)
[2017-03-14] MEDS: HYDROCHLOROTHIAZIDE 25 MG TAB PO SCH (08:36)
[2017-03-14] MEDS: CALCIUM CARBONATE 1.25 GM (CA 500 MG) TAB PO SCH ×2 (08:36→21:44)
--- NOTE | 2017-03-14 09:44 | PD.CARD.PN ---
Subjective Subjective Remarks alert in nad, feels better, drinking clears Objective Vital Signs / I&O Vital Signs Date Time Temp Pulse Resp B/P Pulse Ox O2 Delivery O2 Flow Rate FiO2 03/14/17 08:00 97.9 77 20 134/68 91 03/14/17 07:47 94 21 03/14/17 05:06 96.6 72 20 120/61 98 03/14/17 00:55 98.1 72 18 102/57 94 03/13/17 21:12 97.4 81 20 98/54 95 03/13/17 20:00 83 03/13/17 20:00 Nasal Cannula 2.00 03/13/17 19:11 96 21 03/13/17 16:00 95.4 20 20 105/55 97 03/13/17 12:00 96.9 74 20 105/55 97 03/13/17 10:00 Nasal Cannula 2.00 21 I/O 03/13/17 03/13/17 03/13/17 03/14/17 03/14/17 03/14/17 07:00 15:00 23:00 07:00 15:00 23:00 Intake Total 900 ml 2293 ml Output Total 3000 ml 500 ml Balance -3000 ml 900 ml 1793 ml Intake Oral 900 ml IV Total 2293 ml Output Urine Total 3000 ml 500 ml # Voids 1 5 2 # Bowel Movements 0 3 1 2 Laboratory GENERAL: SKIN: Warm and dry. HEAD: Normocephalic. EYES: No scleral icterus. No injection or drainage. NECK: Supple, trachea midline. No JVD or lymphadenopathy. CARDIOVASCULAR: Regular rate and rhythm without murmurs, gallops, or rubs. RESPIRATORY: Breath sounds equal bilaterally. No accessory muscle use. GASTROINTESTINAL: Abdomen soft, non-tender, nondistended. MUSCULOSKELETAL: No cyanosis, or edema. BACK: Nontender without obvious deformity. No CVA tenderness. Laboratory Tests Test 03/14/17 06:59 White Blood Count 3.3 TH/MM3 Red Blood Count 3.13 MIL/MM3 Hemoglobin 9.5 GM/DL Hematocrit 28.0 % Mean Corpuscular Volume 89.5 FL Mean Corpuscular Hemoglobin 30.3 PG Mean Corpuscular Hemoglobin 33.8 % Concent Red Cell Distribution Width 13.4 % Platelet Count 118 TH/MM3 Mean Platelet Volume 8.4 FL Neutrophils (%) (Auto) 55.5 % Lymphocytes (%) (Auto) 28.0 % Monocytes (%) (Auto) 11.6 % Eosinophils (%) (Auto) 4.7 % Basophils (%) (Auto) 0.2 % Neutrophils # (Auto) 1.8 TH/MM3 Lymphocytes # (Auto) 0.9 TH/MM3 Monocytes # (Auto) 0.4 TH/MM3 Eosinophils # (Auto) 0.2 TH/MM3 Basophils # (Auto) 0.0 TH/MM3 CBC Comment DIFF FINAL Differential Comment Sodium Level 145 MEQ/L Potassium Level 2.9 MEQ/L Chloride Level 108 MEQ/L Carbon Dioxide Level 30.5 MEQ/L Anion Gap 7 MEQ/L Blood Urea Nitrogen 3 MG/DL Creatinine 0.55 MG/DL Estimat Glomerular Filtration 107 ML/MIN Rate Random Glucose 88 MG/DL Calcium Level 8.1 MG/DL Total Bilirubin 0.5 MG/DL Aspartate Amino Transf 42 U/L (AST/SGOT) Alanine Aminotransferase 139 U/L (ALT/SGPT) Alkaline Phosphatase 106 U/L Total Protein 5.2 GM/DL Albumin 2.4 GM/DL Assessment and Plan Problem List: (1) Nausea & vomiting (2) Diarrhea (3) Atrial fibrillation (4) Acute pancreatitis (5) Elevated LFTs Assessment and Plan 1.) PAF - in nsr on ekg, assymptomatic, hold multaq, ok to change xarelto to alesha d/debbie patient, her family and nurse, continue telemetry Problem Qualifiers (1) Acute pancreatitis: Qualified Code: K85.90 - Acute pancreatitis, unspecified complication status, unspecified pancreatitis type Garrett Urbina MD March 14, 2017 09:44
[2017-03-14] MEDS ORDERED: POTASSIUM CHLORIDE 20 MEQ CONTROLLED RELEASE TAB PO ONE (09:45)
--- NOTE | 2017-03-14 09:47 | HHI.PR ---
Subjective History of Present Illness Patient abdominal pain ..better advance diet as tolerated.. Multaq and Xarelto discontinued cardiology/ hematology input noted... d/w family at bed side. D/W SCHUYLER [place] Low potassium will replace. Review of Systems Constitutional Constitutional: Fatigue, Weakness GI/Abdomen GI/Abdominal Exam: Nausea, Abdominal Pain Vitals/Results Intake & Output 03/13/17 03/13/17 03/14/17 15:00 23:00 07:00 Intake Total 900 ml 2293 ml Output Total 500 ml Balance 900 ml 1793 ml Intake Oral 900 ml IV Total 2293 ml Output Urine Total 500 ml # Voids 5 2 # Bowel Movements 3 1 2 Vital Signs Vital Signs Date Time Temp Pulse Resp B/P Pulse Ox O2 Delivery O2 Flow Rate FiO2 03/14/17 08:00 97.9 77 20 134/68 91 03/14/17 07:47 94 21 03/14/17 05:06 96.6 72 20 120/61 98 03/14/17 00:55 98.1 72 18 102/57 94 03/13/17 21:12 97.4 81 20 98/54 95 03/13/17 20:00 83 03/13/17 20:00 Nasal Cannula 2.00 03/13/17 19:11 96 21 03/13/17 16:00 95.4 20 20 105/55 97 03/13/17 12:00 96.9 74 20 105/55 97 03/13/17 10:00 Nasal Cannula 2.00 21 CBC/BMP: 03/14/17 0659 03/14/17 0659 Lab Results Laboratory Tests Test 03/14/17 06:59 White Blood Count 3.3 TH/MM3 Red Blood Count 3.13 MIL/MM3 Hemoglobin 9.5 GM/DL Hematocrit 28.0 % Mean Corpuscular Volume 89.5 FL Mean Corpuscular Hemoglobin 30.3 PG Mean Corpuscular Hemoglobin 33.8 % Concent Red Cell Distribution Width 13.4 % Platelet Count 118 TH/MM3 Mean Platelet Volume 8.4 FL Neutrophils (%) (Auto) 55.5 % Lymphocytes (%) (Auto) 28.0 % Monocytes (%) (Auto) 11.6 % Eosinophils (%) (Auto) 4.7 % Basophils (%) (Auto) 0.2 % Neutrophils # (Auto) 1.8 TH/MM3 Lymphocytes # (Auto) 0.9 TH/MM3 Monocytes # (Auto) 0.4 TH/MM3 Eosinophils # (Auto) 0.2 TH/MM3 Basophils # (Auto) 0.0 TH/MM3 CBC Comment DIFF FINAL Differential Comment Sodium Level 145 MEQ/L Potassium Level 2.9 MEQ/L Chloride Level 108 MEQ/L Carbon Dioxide Level 30.5 MEQ/L Anion Gap 7 MEQ/L Blood Urea Nitrogen 3 MG/DL Creatinine 0.55 MG/DL Estimat Glomerular Filtration 107 ML/MIN Rate Random Glucose 88 MG/DL Calcium Level 8.1 MG/DL Total Bilirubin 0.5 MG/DL Aspartate Amino Transf 42 U/L (AST/SGOT) Alanine Aminotransferase 139 U/L (ALT/SGPT) Alkaline Phosphatase 106 U/L Total Protein 5.2 GM/DL Albumin 2.4 GM/DL Physical Exam General General Appearance: Well Developed, Well Nourished, No Acute Distress, Comfortable Eyes Eye Exam: Pupils Equal, Pupils Reactive, Sclera White, Extraocular Movement Intact Throat Throat Exam: Oral Mucosa [place] & Moist, Oral Pharynx Normal Neck Neck Exam: Neck Supple, Trachea Midline Pulmonary Resp Exam: Clear Bilaterally, Breath Sounds Equal, No Distress Cardiology CV Exam: Regular, Normal Sinus Rhythm Gastrointestinal/Abdomen GI Exam: Soft GI Remarks epigastric tenderness. Musculoskeletal MS Exam: Normal Tone Integumentary Skin Exam: Clear, Warm, Dry Neurologic Neuro Exam: Alert, Awake, Oriented, Speech Clear, Moving All Extremities, No Focal Deficits Psychiatric Psych Exam: Appropriate Responses VTE Prophylaxis VTE Prophylaxis Meds: Heparin PUD Prophylasis PUD Prophylaxis: Protonix Assessment/Plan Assessment/Plan ASSESSMENT AND PLAN 1. Pancreatitis acute onset with epigastric abdominal pain. most likely secondary to multaq ...which was discontinued. 2. History of hypertension. 3. Hypokalemia, will replace. 4. Acute kidney injury with dehydration 5. Epigastric pain, rule out any type of vascular event. 6. Bronchitis acute on chronic. 7. History of atrial fibrillation 8. Generalized weakness and physical deconditioning. Advance diet as tolerated. We will monitor on cardiac telemetry. Vital signs will be q4 and as warranted. Activity will be out of bed ad edison, but with assistance. We will monitor her intake and output. The patient is currently on PO Lasix and we will continue her home medications. on normal saline for gentle hydration, pain management with IV meds, SCD's for DVT prophylaxis. GI input noted checked chest x-ray, aortic CTA and vascular ultrasound .. on Benadryl for her itching. This could be an allergic reaction We will monitor her symptoms. We will give her DuoNeb's q4 while awake as needed for her wheezing and bronchitis. O2 as needed. The patient is full code, full aggressive care and we will continue to monitor. Dicontinued Xarelto and Multaq. Check CBC with diff CMP in AM. Discussed Condition with: Patient Kyler Meyer MD March 14, 2017 09:47
[2017-03-14] MEDS: cefTRIAXone INJ 1,000 MG in SODIUM CHLORIDE 0.9% INJ 100 ML IV SCH (13:56)
[2017-03-14] MEDS: BENZONATATE 100 MG CAP PO PRN ×2 (16:20→21:06)
[2017-03-14] MEDS ORDERED: ACETAMINOPHEN 325 MG TAB PO PRN ×2 (22:30→22:45)
[2017-03-15] VITALS: BP 121/66; PULSE 72; RESP 20; TEMP 97.9; O2SAT 94
[2017-03-15 04:00] VITALS: BP 124/64; PULSE 60; RESP 20; TEMP 97; O2SAT 95
[2017-03-15] MEDS: CALCIUM CARBONATE 500 MG CHEWABLE TAB CHEW SCH (07:32)
[2017-03-15 08:00] VITALS: BP 140/72; PULSE 57; RESP 18; TEMP 96.5; O2SAT 95
[2017-03-15 08:01] LABS: AUTOMATED NEUTROPHIL # 2.4 TH/MM3 (1.8-7.7); BASOPHIL % 0.7 % (0.0-2.0); EOSINOPHIL # 0.2 TH/MM3 (0-0.4); EOSINOPHIL % 4.9 % (0.0-4.0); HEMATOCRIT 31.3 % (35.0-46.0); HEMO FLAGS DIFF FINAL; LYMPH % 39.3 % (9.0-44.0); LYMPHOCYTE # 1.9 TH/MM3 (1.0-4.8); MEAN CELL VOLUME 89.9 FL (80.0-100.0); MEAN CORPUSCULAR HEMOGLOBIN 29.1 PG (27.0-34.0); MEAN CORPUSCULAR HGB CONC 32.3 % (32.0-36.0); MONO % 8.4 % (0.0-8.0); NEUT % 46.7 % (16.0-70.0); PLATELET COUNT 138 TH/MM3 (150-450); RED BLOOD COUNT 3.49 MIL/MM3 (4.00-5.30); RED CELL DISTRIBUTION WIDTH 14.1 % (11.6-17.2); WHITE BLOOD COUNT 4.9 TH/MM3 (4.0-11.0)
[2017-03-15 08:07] LABS: CHLORIDE 108 MEQ/L (98-107); POTASSIUM 3.4 MEQ/L (3.5-5.1); SODIUM (NA) 145 MEQ/L (136-145)
[2017-03-15 08:15] LABS: ANION GAP 8 MEQ/L (5-15); BICARBONATE 29.5 MEQ/L (21.0-32.0); BLOOD UREA NITROGEN 4 MG/DL (7-18)
[2017-03-15 08:18] LABS: ALT (GPT) 107 U/L (10-53); AST (GOT) 24 U/L (15-37); GLOMERULAR FILTRATION RATE 92 ML/MIN (>89)
[2017-03-15 08:19] LABS: TOTAL BILIRUBIN ADULT 0.4 MG/DL (0.2-1.0)
[2017-03-15 08:20] LABS: ALKALINE PHOSPHATASE 98 U/L (45-117)
[2017-03-15] MEDS: FUROSEMIDE 20 MG TAB PO SCH ×2 (08:56→16:07)
[2017-03-15] MEDS: ASCORBIC ACID 500 MG TAB PO SCH (08:56)
[2017-03-15] MEDS: PRAVASTATIN SOD 40 MG TAB PO SCH (08:56)
[2017-03-15] MEDS: APIXABAN 2.5 MG TABLET PO SCH ×2 (08:56→16:06)
[2017-03-15] MEDS: CALCIUM CARBONATE 1.25 GM (CA 500 MG) TAB PO SCH (08:57)
[2017-03-15] MEDS: PANTOPRAZOLE SOD 20 MG DELAYED RELEASE TAB PO SCH (08:57)
[2017-03-15] MEDS: HYDROCHLOROTHIAZIDE 25 MG TAB PO SCH (08:57)
[2017-03-15] MEDS: POTASSIUM CHLORIDE 25 MEQ EFFERVESCENT TAB PO SCH (08:57)
--- NOTE | 2017-03-15 09:15 | HHI.GIFU ---
Subjective Remarks alert Nad feeling completely better no GI sxs .... LFTS almost normal Objective Vitals I&O Vital Signs Date Time Temp Pulse Resp B/P Pulse Ox O2 Delivery O2 Flow Rate FiO2 03/15/17 08:00 96.5 57 18 140/72 95 03/15/17 04:00 97.0 60 20 124/64 95 03/15/17 00:00 97.9 72 20 121/66 94 03/14/17 20:02 95 Room Air 03/14/17 20:00 97.0 72 20 118/64 95 03/14/17 20:00 72 03/14/17 16:00 97.1 80 20 113/76 98 03/14/17 12:00 97.1 80 20 119/64 93 03/14/17 10:00 Nasal Cannula 2.00 21 I/O 03/14/17 03/14/17 03/14/17 03/15/17 03/15/17 03/15/17 07:00 15:00 23:00 07:00 15:00 23:00 Intake Total 900 ml 7172 ml 470 ml Output Total 650 ml 1400 ml Balance 900 ml 6522 ml -930 ml Intake Oral 900 ml 420 ml 100 ml IV Total 6752 ml 370 ml Output Urine Total 650 ml 1400 ml # Voids 2 5 2 # Bowel Movements 2 2 0 0 Laboratory Laboratory Tests Test 03/15/17 06:12 White Blood Count 4.9 Red Blood Count 3.49 Hemoglobin 10.1 Hematocrit 31.3 Mean Corpuscular Volume 89.9 Mean Corpuscular Hemoglobin 29.1 Mean Corpuscular Hemoglobin 32.3 Concent Red Cell Distribution Width 14.1 Platelet Count 138 Mean Platelet Volume 8.5 Neutrophils (%) (Auto) 46.7 Lymphocytes (%) (Auto) 39.3 Monocytes (%) (Auto) 8.4 Eosinophils (%) (Auto) 4.9 Basophils (%) (Auto) 0.7 Neutrophils # (Auto) 2.4 Lymphocytes # (Auto) 1.9 Monocytes # (Auto) 0.4 Eosinophils # (Auto) 0.2 Basophils # (Auto) 0.0 CBC Comment DIFF FINAL Differential Comment Sodium Level 145 Potassium Level 3.4 Chloride Level 108 Carbon Dioxide Level 29.5 Anion Gap 8 Blood Urea Nitrogen 4 Creatinine 0.63 Estimat Glomerular Filtration 92 Rate Random Glucose 85 Calcium Level 8.7 Magnesium Level 2.0 Total Bilirubin 0.4 Aspartate Amino Transf 24 (AST/SGOT) Alanine Aminotransferase 107 (ALT/SGPT) Alkaline Phosphatase 98 Total Protein 5.5 Albumin 2.5 Date/Time Procedure Status Source Growth 03/12/17 21:10 Aerobic Blood Culture - Preliminary Resulted Blood Peripheral NO GROWTH IN 2 DAYS 03/12/17 21:10 Anaerobic Blood Culture - Preliminary Resulted Blood Peripheral NO GROWTH IN 2 DAYS Physical Exam CHEST: Chest is clear to auscultation and percussion. CARDIAC: Regular rate and rhythm with no murmur gallop or rubs. ABDOMEN: Soft, no tenderness bs present EXTREMITIES: No clubbing, cyanosis, or edema. SKIN: Normal; no rash; no jaundice. CERTIFIER: No focal deficits; alert and oriented times three. Assessment and Plan Assessment: (1) Acute pancreatitis (2) Abdominal pain (3) Elevated LFTs Plan Lfts almost normal .. no Gi sxs at present...[place]q dcd ( as probable cause of pancreatitis) other possibilit caould have been passage of sludge but Mrcp was without filling defects in cbd.....ok for Dc discussed w family ... fu Dr martel as outpt Problem Qualifiers (1) Acute pancreatitis: Qualified Code: K85.90 - Acute pancreatitis, unspecified complication status, unspecified pancreatitis type Amish Ruiz MD March 15, 2017 09:15
--- NOTE | 2017-03-15 09:17 | HHI.PR ---
Subjective History of Present Illness Patient abdominal pain ..better advance diet as tolerated.. Multaq and Xarelto discontinued cardiology/ hematology input noted... d/w family at bed side. D/W SCHUYLER [place] Low potassium will replace...ok to dc home today Review of Systems Constitutional Constitutional: Fatigue, Weakness GI/Abdomen GI/Abdominal Exam: Nausea, Abdominal Pain Vitals/Results Intake & Output 03/14/17 03/14/17 03/15/17 14:59 22:59 06:59 Intake Total 900 ml 7172 ml 470 ml Output Total 650 ml 1400 ml Balance 900 ml 6522 ml -930 ml Intake Oral 900 ml 420 ml 100 ml IV Total 6752 ml 370 ml Output Urine Total 650 ml 1400 ml # Voids 5 2 # Bowel Movements 2 0 0 Vital Signs Vital Signs Date Time Temp Pulse Resp B/P Pulse Ox O2 Delivery O2 Flow Rate FiO2 03/15/17 08:00 96.5 57 18 140/72 95 03/15/17 04:00 97.0 60 20 124/64 95 03/15/17 00:00 97.9 72 20 121/66 94 03/14/17 20:02 95 Room Air 03/14/17 20:00 97.0 72 20 118/64 95 03/14/17 20:00 72 03/14/17 16:00 97.1 80 20 113/76 98 03/14/17 12:00 97.1 80 20 119/64 93 03/14/17 10:00 Nasal Cannula 2.00 21 CBC/BMP: 03/15/17 0612 03/15/17 0612 Lab Results Laboratory Tests Test 03/15/17 06:12 White Blood Count 4.9 TH/MM3 Red Blood Count 3.49 MIL/MM3 Hemoglobin 10.1 GM/DL Hematocrit 31.3 % Mean Corpuscular Volume 89.9 FL Mean Corpuscular Hemoglobin 29.1 PG Mean Corpuscular Hemoglobin 32.3 % Concent Red Cell Distribution Width 14.1 % Platelet Count 138 TH/MM3 Mean Platelet Volume 8.5 FL Neutrophils (%) (Auto) 46.7 % Lymphocytes (%) (Auto) 39.3 % Monocytes (%) (Auto) 8.4 % Eosinophils (%) (Auto) 4.9 % Basophils (%) (Auto) 0.7 % Neutrophils # (Auto) 2.4 TH/MM3 Lymphocytes # (Auto) 1.9 TH/MM3 Monocytes # (Auto) 0.4 TH/MM3 Eosinophils # (Auto) 0.2 TH/MM3 Basophils # (Auto) 0.0 TH/MM3 CBC Comment DIFF FINAL Differential Comment Sodium Level 145 MEQ/L Potassium Level 3.4 MEQ/L Chloride Level 108 MEQ/L Carbon Dioxide Level 29.5 MEQ/L Anion Gap 8 MEQ/L Blood Urea Nitrogen 4 MG/DL Creatinine 0.63 MG/DL Estimat Glomerular Filtration 92 ML/MIN Rate Random Glucose 85 MG/DL Calcium Level 8.7 MG/DL Magnesium Level 2.0 MG/DL Total Bilirubin 0.4 MG/DL Aspartate Amino Transf 24 U/L (AST/SGOT) Alanine Aminotransferase 107 U/L (ALT/SGPT) Alkaline Phosphatase 98 U/L Total Protein 5.5 GM/DL Albumin 2.5 GM/DL Physical Exam General General Appearance: Well Developed, Well Nourished, No Acute Distress, Comfortable Eyes Eye Exam: Pupils Equal, Pupils Reactive, Sclera White, Extraocular Movement Intact Throat Throat Exam: Oral Mucosa [place] & Moist, Oral Pharynx Normal Neck Neck Exam: Neck Supple, Trachea Midline Pulmonary Resp Exam: Clear Bilaterally, Breath Sounds Equal, No Distress Cardiology CV Exam: Regular, Normal Sinus Rhythm Gastrointestinal/Abdomen GI Exam: Soft GI Remarks epigastric tenderness. Musculoskeletal MS Exam: Normal Tone Integumentary Skin Exam: Clear, Warm, Dry Neurologic Neuro Exam: Alert, Awake, Oriented, Speech Clear, Moving All Extremities, No Focal Deficits Psychiatric Psych Exam: Appropriate Responses VTE Prophylaxis VTE Prophylaxis Meds: Heparin PUD Prophylasis PUD Prophylaxis: Protonix Assessment/Plan Assessment/Plan ASSESSMENT AND PLAN 1. Pancreatitis acute onset with epigastric abdominal pain. most likely secondary to multaq ...which was discontinued. 2. History of hypertension. 3. Hypokalemia, will replace. 4. Acute kidney injury with dehydration 5. Epigastric pain, rule out any type of vascular event. 6. Bronchitis acute on chronic. 7. History of atrial fibrillation 8. Generalized weakness and physical deconditioning. Advance diet as tolerated. We will monitor on cardiac telemetry. Vital signs will be q4 and as warranted. Activity will be out of bed ad edison, but with assistance. We will monitor her intake and output. The patient is currently on PO Lasix and we will continue her home medications. on normal saline for gentle hydration, pain management with IV meds, SCD's for DVT prophylaxis. GI input noted checked chest x-ray, aortic CTA and vascular ultrasound .. on Benadryl for her itching. This could be an allergic reaction We will monitor her symptoms. We will give her DuoNeb's q4 while awake as needed for her wheezing and bronchitis. O2 as needed. The patient is full code, full aggressive care and we will continue to monitor. Dicontinued Xarelto and Multaq. ok to dc home today patient ok by all consultants to go home. f/u with pcp/GI/ Cardiology/ hematology 1 week. Discussed Condition with: Patient Kyler Meyer MD March 15, 2017 09:17
[2017-03-15] MEDS: BENZONATATE 100 MG CAP PO PRN ×2 (09:23→16:06)
[2017-03-15 13:04] VITALS: BP 128/81; PULSE 73; RESP 18; TEMP 96.3; O2SAT 95
--- NOTE | 2017-03-15 13:36 | PD.CARD.PN ---
Subjective Subjective Remarks alert in nad Objective Vital Signs / I&O Vital Signs Date Time Temp Pulse Resp B/P Pulse Ox O2 Delivery O2 Flow Rate FiO2 03/15/17 13:04 96.3 73 18 128/81 95 03/15/17 08:00 96.5 57 18 140/72 95 03/15/17 07:00 Nasal Cannula 2.00 03/15/17 04:00 97.0 60 20 124/64 95 03/15/17 00:00 97.9 72 20 121/66 94 03/14/17 20:02 95 Room Air 03/14/17 20:00 97.0 72 20 118/64 95 03/14/17 20:00 72 03/14/17 16:00 97.1 80 20 113/76 98 I/O 03/14/17 03/14/17 03/14/17 03/15/17 03/15/17 03/15/17 07:00 15:00 23:00 07:00 15:00 23:00 Intake Total 900 ml 7172 ml 470 ml Output Total 650 ml 1400 ml Balance 900 ml 6522 ml -930 ml Intake Oral 900 ml 420 ml 100 ml IV Total 6752 ml 370 ml Output Urine Total 650 ml 1400 ml # Voids 2 5 2 # Bowel Movements 2 2 0 0 Physical Exam GENERAL: SKIN: Warm and dry. HEAD: Normocephalic. EYES: No scleral icterus. No injection or drainage. NECK: Supple, trachea midline. No JVD or lymphadenopathy. CARDIOVASCULAR: Regular rate and rhythm without murmurs, gallops, or rubs. RESPIRATORY: Breath sounds equal bilaterally. No accessory muscle use. GASTROINTESTINAL: Abdomen soft, non-tender, nondistended. MUSCULOSKELETAL: No cyanosis, or edema. BACK: Nontender without obvious deformity. No CVA tenderness. Laboratory Laboratory Tests Test 03/15/17 06:12 White Blood Count 4.9 TH/MM3 Red Blood Count 3.49 MIL/MM3 Hemoglobin 10.1 GM/DL Hematocrit 31.3 % Mean Corpuscular Volume 89.9 FL Mean Corpuscular Hemoglobin 29.1 PG Mean Corpuscular Hemoglobin 32.3 % Concent Red Cell Distribution Width 14.1 % Platelet Count 138 TH/MM3 Mean Platelet Volume 8.5 FL Neutrophils (%) (Auto) 46.7 % Lymphocytes (%) (Auto) 39.3 % Monocytes (%) (Auto) 8.4 % Eosinophils (%) (Auto) 4.9 % Basophils (%) (Auto) 0.7 % Neutrophils # (Auto) 2.4 TH/MM3 Lymphocytes # (Auto) 1.9 TH/MM3 Monocytes # (Auto) 0.4 TH/MM3 Eosinophils # (Auto) 0.2 TH/MM3 Basophils # (Auto) 0.0 TH/MM3 CBC Comment DIFF FINAL Differential Comment Sodium Level 145 MEQ/L Potassium Level 3.4 MEQ/L Chloride Level 108 MEQ/L Carbon Dioxide Level 29.5 MEQ/L Anion Gap 8 MEQ/L Blood Urea Nitrogen 4 MG/DL Creatinine 0.63 MG/DL Estimat Glomerular Filtration 92 ML/MIN Rate Random Glucose 85 MG/DL Calcium Level 8.7 MG/DL Magnesium Level 2.0 MG/DL Total Bilirubin 0.4 MG/DL Aspartate Amino Transf 24 U/L (AST/SGOT) Alanine Aminotransferase 107 U/L (ALT/SGPT) Alkaline Phosphatase 98 U/L Total Protein 5.5 GM/DL Albumin 2.5 GM/DL Assessment and Plan Problem List: (1) Nausea & vomiting (2) Diarrhea (3) Atrial fibrillation (4) Acute pancreatitis (5) Elevated LFTs Assessment and Plan 1.) PAF - in nsr on ekg, assymptomatic, hold multaq, ok to change xarelto to eliquis, d/w patient, her family and nurse, continue telemetry; ok to dc from cv standpoint, d/w patient, nurse and family Problem Qualifiers (1) Acute pancreatitis: Qualified Code: K85.90 - Acute pancreatitis, unspecified complication status, unspecified pancreatitis type Garrett Urbina MD March 15, 2017 13:36
[2017-03-15] MEDS ORDERED: CEFT500T3 PO (14:29)
[2017-03-15] MEDS ORDERED: CALC500C16 CHEW (14:29)
[2017-03-15] MEDS ORDERED: BENZ100 PO (14:29)
[2017-03-15] MEDS ORDERED: APIX2.5T PO (14:29)
[2017-03-15] MEDS ORDERED: HYDR25TA5 PO (14:29)
[2017-03-15] MEDS ORDERED: FURO20TA PO (14:29)
[2017-03-15] MEDS: cefTRIAXone INJ 1,000 MG in SODIUM CHLORIDE 0.9% INJ 100 ML IV SCH (14:55)
[2017-03-15] MEDS ORDERED: POTASSIUM CHLORIDE 10 MEQ CONTROLLED RELEASE TAB PO ONE (16:00)
[2017-03-15] MEDS: diphenhydrAMINE HCL 25 MG CAP PO PRN (16:21)
[2017-03-16 03:52] LABS: IGG SUBCLASSES 4 20.7 mg/dL (4-86)
--- NOTE | 2017-03-17 07:00 | MD ---
cc: KLYER KENYON MD ADMISSION DATE: 03/12/2017 DISCHARGE DATE: 03/15/2017 DISPOSITION Okay to discharge the patient home. CONDITION AT THE TIME OF DISCHARGE Satisfactory. ACTIVITY As tolerated. DIET Cardiac diet. ALLERGIES No known drug allergies. DISCHARGE MEDICATIONS 1. Eliquis 2.5 mg twice a day. 2. Tessalon 100 mg p.o. t.i.d. 3. Calcium carbonate 500 mg twice a day. 4. Ceftin 5 mg twice a day for 7 days. 5. Furosemide 20 mg p.o. b.i.d. 6. Hydrochlorothiazide 25 mg p.o. daily. 7. Ascorbic acid 500 mg p.o. daily. 8. Ferrous sulfate 325 mg p.o. daily. 9. Simvastatin 20 mg p.o. daily. FOLLOWUP The patient was advised to follow up with PCP, Cardiology and Hematology/Oncology in one week. The patient verbalized understanding. ADMISSION DIAGNOSES 1. Pancreatitis, acute, with epigastric pain secondary to Multaq most likely. Multaq was discontinued. 2. History of hypertension. 3. Hypokalemia which was resolved. 4. Acute kidney injury which is improved. 5. Epigastric pain secondary to acute pancreatitis. 6. Bronchitis acute on chronic. The patient was given antibiotics during the hospital stay, Rocephin. 7. History of atrial fibrillation. Pradaxa was discontinued. The patient started on Eliquis. HOSPITAL COURSE This is a 76-year-old female with a past medical-surgical history as dictated in the HPI. Please see the full details of the HPI. She came to the ER with epigastric pain, diagnosed with acute pancreatitis. The patient had MRCP done, shows common bile duct dilatation without evidence of stone. The patient had CT of the abdomen and pelvis done, shows status post cholecystectomy, large hiatal hernia containing a portion of the transverse colon and even the pancreas. CT of the aorta was done, shows no aortic aneurysm or dissection; splenomegaly, large lateral hernia. Prior cholecystectomy. Chest x-ray was done and shows cardiomegaly, no acute disease. CT brain was done and shows no evidence of acute intracranial pathology. No mass identified. The patient had blood cultures x 2 done, negative so far. The patient's CBC was low which eventually normalized. The patient had anemia with a hemoglobin of 10.1 and 9.5 which remained stable. The patient had hypokalemia. Potassium was replaced. The patient's OSIEL was negative. Urine examination did not show any urinary tract infection. Patient's other comorbidities include GERD and hypertension. CONDITION ON DISCHARGE The patient is discharged in satisfactory condition to home. The patient seen by the GI doctor, Dr. Ruiz. He recommended to discontinue Multaq because that 26 cases have been shown that Multaq causes pancreatitis. Multaq was discontinued. Dr. Urbina was consulted and also Hematology was consulted for anemia. Further details in the medical record. Kyler Kenyon MD EA/GARFIELD /3:24 PM /6:47 AM
== END 2017-03-15 16:42 | disposition home or self-care (01) | DRG 439 ==
LOC: NEPE 08:16 → INTOOBSV 11:01 → NEDA 11:01 → PH3A 15:49 → OBSVTOIN 03-12 16:41
PROVIDERS: ADMIT Specialist; ATTEND Specialist
DX: K85.90 Acute pancreatitis without necrosis or infection, unspecified (principal); N17.9 Acute kidney failure, unspecified; D69.6 Thrombocytopenia, unspecified; I48.0 Paroxysmal atrial fibrillation; E83.51 Hypocalcemia; R16.1 Splenomegaly, not elsewhere classified; E86.0 Dehydration; J20.9 Acute bronchitis, unspecified; T46.2X5A Adverse effect of other antidysrhythmic drugs, initial encounter; L29.9 Pruritus, unspecified; I10 Essential (primary) hypertension; E78.5 Hyperlipidemia, unspecified; D64.9 Anemia, unspecified; E87.6 Hypokalemia; J42 Unspecified chronic bronchitis; K44.9 Diaphragmatic hernia without obstruction or gangrene; K21.9 Gastro-esophageal reflux disease without esophagitis; R79.89 Other specified abnormal findings of blood chemistry
CPT/HCPCS: 70450; 71020; 71275; 74174; 74177; 74181; 76377; 76937; 80048; 80053; 81001; 82150; 82306; 82310; 82550; 82728; 82784; 82787; 83540; 83550; 83690; 83735; 83880; 84484; 85025; 85027; 85384; 85610; 85730; 86038; 87040; 93005; 94640; 94664; 96374; 96375; J0610; J0696; J1170; J1200; J2175; J2270; J2405; J7030; Q9963; Q9967

== ENCOUNTER 2017-05-11 07:00 | Observation (INO) | payer MEDICARE, BC ==
[~2017-05-11] VITALS: Ht 152.4 cm; Wt 98.6 kg
[2017-05-11] VITALS (9 sets, daily range): BP systolic 105–137; BP diastolic 59–106; PULSE 73–82; RESP 16–20; TEMP 95.9–98.1; O2SAT 92–97
[~2017-05-11 07:00] MED LIST changes: +APIX2.5T PO; +BENZ100 PO; +CALC500C16 CHEW; +CEFT500T3 PO; -METO25TA3 PO; -MULT400T PO; -POTA-163 PO; -XARE20TA PO
[2017-05-11] MEDS ORDERED: FERR200T PO (07:20)
--- NOTE | 2017-05-11 07:38 | PD ---
HPI Chief Complaint: General Weakness Time Seen by Provider: 07:36 Travel History International Travel<30 days: No Contact w/Intl Traveler<30days: No Traveled to known affect area: No History of Present Illness HPI Patient is a 76-year-old female with a history of hiatal hernia presents emergency department for evaluation of generalized weakness. Patient states she 's been weak for the past 3 days and just feeling very tired. She also describes a vague dizziness sensation particularly when she goes from lying to sitting. Also states that the sensation of gagging on her food is gotten worse over the past few weeks and she often has to elodia her food down with a lot of water to make sure it stays down. She is followed by Dr. Sherine Sandoval who recommended the patient be evaluated by general surgeon for her hiatal hernia, she states that she was evaluated by Dr. Sylvester year ago and was too small of her hernia for operation at that time. Patient denies any fever abdominal pain headache chest pain. PFSH Past Medical History Hx Anticoagulant Therapy: Yes Atrial Fibrillation: Yes Blood Disorders: No Heart Rhythm Problems: Yes (PT HAS A-FIB) Cancer: No Cardiovascular Problems: Yes (htn on meds, a-fib) High Cholesterol: Yes Congestive Heart Failure: No Diabetes: No Diminished Hearing: No Endocrine: No GERD: No Genitourinary: No Headaches: Yes Hiatal Hernia: Yes Hypertension: Yes Immune Disorder: No Implanted Vascular Access Dvce: No Musculoskeletal: No Neurologic: No Psychiatric: No Reproductive: No Respiratory: Yes (asthma) Pneumonia: Yes ?: Not Menopausal: Yes : 6 Para: 4 Miscarriage: 2 Past Surgical History Abdominal Surgery: Yes (cholysectomy ) AICD: No Cholecystectomy: Yes (1993) Eye Surgery: Yes (Cataracts ) Gynecologic Surgery: Yes (MESH PUT IN FOR BLADDER REPAIR) Pacemaker: No Other Surgery: Yes (RECTOCEL/CYSTOCEL MANY YEARS AGO, benign CYSTS REMOVED FROM BREAST) Family History Family Myocardial Infarction: Yes Social History Alcohol Use: No Tobacco Use: No Substance Use: No Allergies-Medications (Allergen,Severity, Reaction): Coded Allergies: No Known Allergies (Verified , 05/11/17) Reported Meds & Prescriptions Reported Meds & Active Scripts Active Hydrochlorothiazide 25 Mg Tab 25 Mg PO DAILY Furosemide 20 Mg Tab 20 Mg PO BID Calcium Carbonate (Antacid) 500 Mg Chew 500 Mg CHEW Q12HR Eliquis (Apixaban) 2.5 Mg Tab 2.5 Mg PO BID Reported Feosol (Ferrous Sulfate) 200 Mg Tab 200 Mg PO DAILY Simvastatin 20 Mg Tab 20 Mg PO DAILY Review of Systems Except as stated in HPI: all other systems reviewed are Neg Physical Exam Narrative GENERAL: Well-developed, overweight, appears fatigued. SKIN: Focused skin assessment warm/dry. HEAD: Atraumatic. Normocephalic. EYES: Pupils equal and round. No scleral icterus. No injection or drainage. ENT: No nasal bleeding or discharge. Mucous membranes pink and moist. NECK: Trachea midline. No JVD. CARDIOVASCULAR: Regular rate and rhythm. No murmur appreciated. 2+ bilateral equal pulses in all 4 extremity's. RESPIRATORY: No accessory muscle use. Clear to auscultation. Breath sounds equal bilaterally. GASTROINTESTINAL: Abdomen soft, non-tender, nondistended. Hepatic and splenic margins not palpable. MUSCULOSKELETAL: No obvious deformities. No clubbing. No cyanosis. No edema. NEUROLOGICAL: Awake and alert. No obvious cranial nerve deficits. Motor grossly within normal limits. Normal speech. PSYCHIATRIC: Appropriate mood and affect; insight and judgment normal. Data Data Last Documented VS Vital Signs Date Time Temp Pulse Resp B/P Pulse Ox O2 Delivery O2 Flow Rate FiO2 05/11/17 08:39 73 16 124/65 95 Room Air 05/11/17 07:04 97.9 Orders Ckmb (Isoenzyme) Profile (05/11/17 07:36) Complete Blood Count With Diff (05/11/17 07:36) Comprehensive Metabolic Panel (05/11/17 07:36) Magnesium (Mg) (05/11/17 07:36) Prothrombin Time / Inr (Pt) (05/11/17 07:36) Act Partial Throm Time (Ptt) (05/11/17 07:36) Troponin I (05/11/17 07:36) Lipase (05/11/17 07:36) Chest, Single Ap (05/11/17 07:36) Ecg Monitoring (05/11/17 07:36) Iv Access Insert/Monitor (05/11/17 07:36) Oximetry (05/11/17 07:36) Oxygen Administration (05/11/17 07:36) Sodium Chloride 0.9% Flush (Ns Flush) (05/11/17 07:45) Meclizine (Antivert) (05/11/17 07:45) Ct Brain W/O Iv Contrast(Rout) (05/11/17 ) Potassium Chlor 20 Meq Premix (Kcl 20 Me (05/11/17 08:30) Potassium Chloride (Kcl) (05/11/17 08:30) Sodium Chlorid 0.9% 500 Ml Inj (Ns 500 M (05/11/17 08:30) Labs Laboratory Tests Test 05/11/17 07:30 White Blood Count 9.2 TH/MM3 Red Blood Count 4.32 MIL/MM3 Hemoglobin 13.0 GM/DL Hematocrit 38.5 % Mean Corpuscular Volume 89.2 FL Mean Corpuscular Hemoglobin 30.2 PG Mean Corpuscular Hemoglobin 33.8 % Concent Red Cell Distribution Width 13.9 % Platelet Count 247 TH/MM3 Mean Platelet Volume 8.9 FL Neutrophils (%) (Auto) 69.2 % Lymphocytes (%) (Auto) 19.6 % Monocytes (%) (Auto) 7.9 % Eosinophils (%) (Auto) 2.7 % Basophils (%) (Auto) 0.6 % Neutrophils # (Auto) 6.4 TH/MM3 Lymphocytes # (Auto) 1.8 TH/MM3 Monocytes # (Auto) 0.7 TH/MM3 Eosinophils # (Auto) 0.2 TH/MM3 Basophils # (Auto) 0.1 TH/MM3 CBC Comment DIFF FINAL Differential Comment Prothrombin Time 11.1 SEC Prothromb Time International 1.0 RATIO Ratio Activated Partial 25.0 SEC Thromboplast Time Sodium Level 135 MEQ/L Potassium Level 2.5 MEQ/L Chloride Level 87 MEQ/L Carbon Dioxide Level 38.0 MEQ/L Anion Gap 10 MEQ/L Blood Urea Nitrogen 25 MG/DL Creatinine 1.10 MG/DL Estimat Glomerular Filtration 48 ML/MIN Rate Random Glucose 136 MG/DL Calcium Level 11.1 MG/DL Magnesium Level 1.6 MG/DL Total Bilirubin 0.8 MG/DL Aspartate Amino Transf 27 U/L (AST/SGOT) Alanine Aminotransferase 29 U/L (ALT/SGPT) Alkaline Phosphatase 92 U/L Total Creatine Kinase 45 U/L Troponin I LESS THAN 0.02 NG/ML Total Protein 7.4 GM/DL Albumin 3.7 GM/DL Lipase 197 U/L MDM Medical Decision Making Medical Screen Exam Complete: Yes Emergency Medical Condition: Yes Interpretation(s) EKG shows atrial fibrillation, left axis deviation, poor R-wave progression. No concerning ST segment changes. Intervals within normal limits. This is an abnormal EKG. Comparison to 03/13/17, patient now appears to be in atrial fibrillation. She has a history of intermittent atrial fibrillation. Differential Diagnosis Acute kidney injury, electrolyte abnormality, anemia, dehydration. Narrative Course Patient roomed in the emergency department, baseline creatinine appears to be between 0.5 0.6, today is 1.1. Potassium is quite low at 2.5. Given her history and review of her x-ray and prior CAT scan results appear so almost the entire stomach is in contained within the thoracic cavity at this point. Think this may be causing the patient significant discomfort. She was able to tolerate by mouth potassium in the emergency department, I recommended that she be observed until her potassium is more normalized and she is agreeable. May be of benefit to pursue a Surgical consult for the patient's hiatal hernia. Diagnosis Primary Impression: Hypokalemia Additional Impressions: Malnourished NUZHAT (acute kidney injury) Amaury Cruz MD May 11, 2017 07:38 Amaury Cruz MD May 11, 2017 07:38
[2017-05-11] MEDS ORDERED: MECLIZINE HCL 25 MG TAB PO ONE (07:45)
[2017-05-11] MEDS ORDERED: SODIUM CHLORIDE 0.9% FLUSH 10 ML FLUSH IVF PRN (07:45)
[2017-05-11 07:50] LABS: AUTOMATED NEUTROPHIL # 6.4 TH/MM3 (1.8-7.7); BASOPHIL # 0.1 TH/MM3 (0-0.2); BASOPHIL % 0.6 % (0.0-2.0); EOSINOPHIL # 0.2 TH/MM3 (0-0.4); EOSINOPHIL % 2.7 % (0.0-4.0); HEMATOCRIT 38.5 % (35.0-46.0); LYMPH % 19.6 % (9.0-44.0); LYMPHOCYTE # 1.8 TH/MM3 (1.0-4.8); MEAN CELL VOLUME 89.2 FL (80.0-100.0); MEAN CORPUSCULAR HEMOGLOBIN 30.2 PG (27.0-34.0); MEAN CORPUSCULAR HGB CONC 33.8 % (32.0-36.0); MONO % 7.9 % (0.0-8.0); NEUT % 69.2 % (16.0-70.0); PLATELET COUNT 247 TH/MM3 (150-450); RED BLOOD COUNT 4.32 MIL/MM3 (4.00-5.30); RED CELL DISTRIBUTION WIDTH 13.9 % (11.6-17.2); WHITE BLOOD COUNT 9.2 TH/MM3 (4.0-11.0)
[2017-05-11 07:51] LABS: HEMO FLAGS DIFF FINAL
[2017-05-11 08:02] LABS: PROTHROMBIN TIME - PATIENT 11.1 SEC (9.8-11.6)
--- NOTE | 2017-05-11 08:04 | RADRPT ---
EXAM DATE/TIME: 05/11/2017 07:45 [facility] COMPARISON: CT BRAIN W/O CONTRAST, March 10, 2017, 18:09. INDICATIONS : Generalized weakness. RADIATION DOSE: 60.10 CTDIvol (mGy) MEDICAL HISTORY : Hypertension. Anticoagulant therapy. SURGICAL HISTORY : None. ENCOUNTER: Initial ACUITY: 3 days PAIN SCALE: 0/10 LOCATION: cranial TECHNIQUE: Multiple contiguous axial images were obtained of the head. Using automated exposure control and adj ustment of the mA and/or kV according to patient size, radiation dose was kept as low as reasonably a chievable to obtain optimal diagnostic quality images. DICOM format image data is available electro nically for review and comparison. FINDINGS: CEREBRUM: The ventricles are normal for age. No evidence of midline shift, mass lesion, hemorrhage or acute in farction. No extra-axial fluid collections are seen. POSTERIOR FOSSA: The cerebellum and brainstem are intact. The 4th ventricle is midline. The cerebellopontine angle i s unremarkable. EXTRACRANIAL: The visualized portion of the orbits is intact. SKULL: The calvaria is intact. No evidence of skull fracture. CONCLUSION: No acute intracranial disease. No change from previous study. Jacob Gallegos MD on May 11, 2017 at 7:59 Board Certified Radiologist. This report was verified electronically.
[2017-05-11 08:07] LABS: ALT (GPT) 29 U/L (10-53); ANION GAP 10 MEQ/L (5-15); AST (GOT) 27 U/L (15-37); BLOOD UREA NITROGEN 25 MG/DL (7-18); CHLORIDE 87 MEQ/L (98-107); GLOMERULAR FILTRATION RATE 48 ML/MIN (>89); MAGNESIUM 1.6 MG/DL (1.5-2.5); SODIUM (NA) 135 MEQ/L (136-145); TOTAL BILIRUBIN ADULT 0.8 MG/DL (0.2-1.0)
[2017-05-11 08:11] LABS: POTASSIUM 2.5 MEQ/L (3.5-5.1)
[2017-05-11 08:16] LABS: ALKALINE PHOSPHATASE 92 U/L (45-117)
[2017-05-11 08:20] LABS: CREATINE KINASE 45 U/L (26-192)
--- NOTE | 2017-05-11 08:25 | RADRPT ---
EXAM DATE/TIME: 05/11/2017 07:58 [facility] COMPARISON: CT ABDOMEN & PELVIS W CONTRAST, March 11, 2017, 11:21. CHEST SINGLE AP, March 08, 2017, 12:27. INDICATIONS : Chest pain, weakness. MEDICAL HISTORY : Hypertension. SURGICAL HISTORY : None. ENCOUNTER: Initial ACUITY: 3 days PAIN SCORE: 1/10 LOCATION: Bilateral chest FINDINGS: A single view of the chest demonstrates the lungs to be symmetrically aerated without evidence of mas s, infiltrate or effusion. Eventration of the right hemidiaphragm. Large hiatal hernia. The cardiomed iastinal contours are unremarkable. Osseous structures are intact. CONCLUSION: 1. Large hiatal hernia. 2. No acute cardiopulmonary disease. Jerzy Angulo Jr., MD on May 11, 2017 at 8:21 Board Certified Radiologist. This report was verified electronically.
[2017-05-11] MEDS ORDERED: POTASSIUM CHLORIDE 20 MEQ CONTROLLED RELEASE TAB PO ONE (08:30)
[2017-05-11] MEDS ORDERED: SODIUM CHLORID 0.9% 500 ML INJ 500 ML IV ONE (08:30)
[2017-05-11] MEDS ORDERED: POTASSIUM CHLOR 20 MEQ PREMIX 100 ML IV ONE (08:30)
[2017-05-11] MEDS ORDERED: D5-1/2 NS + KCL 40 MEQ INJ 1,000 ML IV SCH (09:22)
[2017-05-11] MEDS ORDERED: BISACODYL 10 MG SUPP RECTAL PRN (09:30)
[2017-05-11] MEDS ORDERED: LACTULOSE SYRUP 20 GM/30 ML CUP PO PRN (09:30)
[2017-05-11] MEDS ORDERED: MAGNESIUM HYDROXIDE SUSP 30 ML CUP PO PRN (09:30)
[2017-05-11] MEDS ORDERED: HEPARIN SODIUM - SQ 10,000 UNITS/ML VIAL SQ SCH (09:30)
[2017-05-11] MEDS ORDERED: ONDANSETRON HCL 4 MG/2 ML VIAL IVP PRN (09:30)
[2017-05-11] MEDS ORDERED: NALOXONE HCL 0.4 MG/ML AMP IV PRN (09:30)
[2017-05-11] MEDS ORDERED: SENNOSIDES 8.6 MG TAB PO PRN (09:30)
[2017-05-11] MEDS ORDERED: SODIUM CHLORIDE 0.9% FLUSH 10 ML FLUSH IV FLUSH PRN (09:30)
[2017-05-11] MEDS ORDERED: POTASSIUM CHLORIDE INJ 40 MEQ in SODIUM CHLOR 0.9% 1000 ML INJ 1,000 ML IV SCH (09:45)
[2017-05-11] MEDS: NS + KCL 40 MEQ INJ 1,000 ML IV SCH (10:36)
[2017-05-11 13:01] LABS: TOTAL PROTEIN SPE 6.5 GM/DL (6.0-7.6)
--- NOTE | 2017-05-11 18:15 | EKG ---
Date Performed: 05/11/2017 Time Performed: 07:16:20 PTAGE: 76 years EKG: Sinus rhythm WITH OCCASIONAL SUPRAVENTRICULAR PREMATURE COMPLEXES MARKED LEFT AXIS DEVIATION POSSIBLE ANTERIOR MY OCARDIAL INFARCTION ABNORMAL ECG INTERPRETATION BASED ON A DEFAULT AGE OF 40 YEARS Compared to the PREVIOUS TRACING from 03/10/17, previous EKG appears to be limb lead reversal DOCTOR: Elian De Anda Interpretating Date/Time 05/11/2017 18:14:13
[2017-05-11] MEDS: CALCIUM CARBONATE 500 MG CHEWABLE TAB CHEW SCH (20:24)
[2017-05-11] MEDS: POTASSIUM CHLORIDE 25 MEQ EFFERVESCENT TAB NG SCH (20:24)
[2017-05-11] MEDS: APIXABAN 2.5 MG TABLET PO SCH (20:25)
[2017-05-11] MEDS: SODIUM CHLORIDE 0.9% FLUSH 10 ML FLUSH IV FLUSH SCH (20:25)
[2017-05-11] MEDS: DOCUSATE SODIUM 50 MG/SENNA 8.6 MG TAB PO SCH (20:25)
--- NOTE | 2017-05-11 20:31 | MB ---
cc: LISA TSANG M.D., DAVID G. M.D. SILVINO LONDONO DATE OF : 1940 DATE OF CONSULTATION: 05/11/2017 REASON FOR CONSULTATION: Evaluation and management of dysphagia. HISTORY OF PRESENT ILLNESS: The patient is a 76 year-old female I was asked to see for further evaluation and management of dysphagia. She was admitted to the hospital with weakness and was found to have a potassium 2.5 which has been corrected. She tells me when she swallows she starts coughing. There is a sensation of hesitation in the mid retrosternal region. She says she has had a history of documented hiatal hernia. Consideration has been given for operation for this in the past but this has been delayed several times. Most recently this past December when she also had an episode of acute pancreatitis related to a medication she had been taking, Multaq. PAST MEDICAL HISTORY: Significant for: 1. Atrial fibrillation. 2. Hypertension. 3. Hyperlipidemia. 4. Headaches. 5. Hiatal hernia. 6. Asthma. 7. History of pneumonia. PAST SURGICAL HISTORY: 1. Cholecystectomy in 1993. 2. Cataract surgery. 3. Bladder repair with mesh. 4. Rectocele, cystocele surgery. FAMILY HISTORY Heart attack. SOCIAL HISTORY: Alcohol use, none. Tobacco use, none. REVIEW OF SYSTEMS: No history of seizure or strokes. No vision difficulties. No chest pain. No urinary symptoms. No rash or joint pain. No unexplained weight loss. Her last colonoscopy was about 1 to 2 years ago, she believes. ALLERGIES MULTAQ. Caused pancreatitis. MEDICATIONS ON ADMISSION: 1. Hydrochlorothiazide. 2. Furosemide. 3. Calcium carbonate. 4. Antacid. 5. Eliquis 6. Feosol 7. Simvastatin PHYSICAL EXAMINATION: Weight is 95.2 kg, temperature 98.1, pulse 78, respiratory 19, blood pressure 120/59 saturation 93% on room air. She is alert. She is oriented x3. She is overweight. She is anicteric. HEENT: Extraocular motions intact. I appreciate no submandibular, cervical, supraclavicular, axillary or epitrochlear adenopathy. LUNGS: Clear bilaterally. HEART: Regular rate and rhythm. No gross murmur or gallop. ABDOMEN: Bowel sounds with no appreciable bruit. Abdomen is soft, no tenderness, no masses or hepatosplenomegaly noted. I appreciate no pedal edema, Dupuytren's contracture or palmar erythema. LABORATORY STUDIES: Today, white count 9.2, hemoglobin 13, MCV 89.2, platelet count 247, sedimentation rate 43, INR 1.0. Sodium 135, potassium 2.5, BUN 25, creatinine 1.1. Liver enzymes normal. Lipase 197. Chest x-ray performed today reveals evidence of a large hiatal hernia. It was not clear from this examination whether this is a sliding hernia or a rolling hernia. No acute cardiopulmonary disease is evident. IMPRESSION: Dysphagia with coughing upon swallowing and pressure in the retrosternal region with swallowing. This patient has a large hiatal hernia. We will schedule upper GI series to determine whether this is a sliding hernia or rolling hernia, and would consider consulting Dr. Roblero to discuss surgical correction as this has been giving her problems intermittently for quite some time now. There is no need for upper endoscopy at this time. I suggest the reverse Trendelenburg position while sleeping in bed. MD JOSE MANUEL Caban/ANG /7:37 PM /8:08 PM
[2017-05-11 21:38] LABS: ALBUMIN SPE 4.02 GM/DL (3.50-5.00); ALPHA 1 GLOBULIN 0.23 GM/DL (0.11-0.29); ALPHA 2 GLOBULIN 0.75 GM/DL (0.22-1.00); BETA GLOBULINS (SPE) 0.86 GM/DL (0.53-1.03)
[2017-05-12] VITALS: BP 108/58; PULSE 77; RESP 20; TEMP 97.9; O2SAT 96
[2017-05-12] MEDS ORDERED: TEMAZEPAM 7.5 MG CAP PO ONE (02:30)
[2017-05-12] MEDS: NS + KCL 40 MEQ INJ 1,000 ML IV SCH (04:04)
[2017-05-12 06:43] LABS: AUTOMATED NEUTROPHIL # 2.5 TH/MM3 (1.8-7.7); BASOPHIL % 0.4 % (0.0-2.0); EOSINOPHIL # 0.2 TH/MM3 (0-0.4); EOSINOPHIL % 5.2 % (0.0-4.0); HEMATOCRIT 32.2 % (35.0-46.0); HEMO FLAGS DIFF FINAL; LYMPH % 30.1 % (9.0-44.0); LYMPHOCYTE # 1.3 TH/MM3 (1.0-4.8); MEAN CELL VOLUME 88.4 FL (80.0-100.0); MEAN CORPUSCULAR HEMOGLOBIN 29.1 PG (27.0-34.0); MEAN CORPUSCULAR HGB CONC 32.9 % (32.0-36.0); MONO % 10.1 % (0.0-8.0); NEUT % 54.2 % (16.0-70.0); PLATELET COUNT 206 TH/MM3 (150-450); RED BLOOD COUNT 3.64 MIL/MM3 (4.00-5.30); RED CELL DISTRIBUTION WIDTH 13.6 % (11.6-17.2); WHITE BLOOD COUNT 4.4 TH/MM3 (4.0-11.0)
[2017-05-12 06:53] LABS: BICARBONATE 37.4 MEQ/L (21.0-32.0); POTASSIUM 3.4 MEQ/L (3.5-5.1)
[2017-05-12 07:00] VITALS: PULSE 74
[2017-05-12 08:00] VITALS: BP 113/61; PULSE 73; RESP 20; TEMP 97.7; O2SAT 95
[2017-05-12] MEDS ORDERED: POTASSIUM CHLORIDE 10 MEQ CONTROLLED RELEASE TAB PO ONE (08:00)
[2017-05-12] MEDS: MAGNESIUM SULFATE 1 GM PREMIX 100 ML IV SCH ×2 (08:14→10:38)
[2017-05-12] MEDS: POTASSIUM CHLORIDE 25 MEQ EFFERVESCENT TAB NG SCH ×2 (08:15→20:47)
[2017-05-12] MEDS: PRAVASTATIN SOD 40 MG TAB PO SCH (08:15)
[2017-05-12] MEDS: APIXABAN 2.5 MG TABLET PO SCH ×2 (08:15→20:47)
[2017-05-12] MEDS: DOCUSATE SODIUM 50 MG/SENNA 8.6 MG TAB PO SCH ×3 (08:17→20:48)
[2017-05-12] MEDS: CALCIUM CARBONATE 500 MG CHEWABLE TAB CHEW SCH ×2 (08:21→20:46)
--- NOTE | 2017-05-12 08:47 | MH ---
cc: ARPIT MEYER MD DATE OF ADMISSION: 05/11/2017 CHIEF COMPLAINT Generalized weakness. HISTORY OF PRESENT ILLNESS This is a 76-year-old female with a past medical/surgical history significant for atrial fibrillation, history of hypertension, history of hiatal hernia, asthma, history of cholecystectomy in 1993, cataract surgery, rectocele and cystocele many years ago, benign cyst removed from the breast, bladder repair with mesh, who came to the ER at [facility] complaining of generalized weakness and unable to swallow. She said she was able to swallow but after that she had dry heaves and was unable to get it down. She stated that she has been weak for the last three days and feeling very tired and described a vague dizziness sensation particularly when she goes from a lying to sitting position. She stated that the sensation of gagging on her food has gotten worse over the past few weeks and she often has to elodia her food down with a lot of water to make sure it stays down. She is followed by Dr. Sheirne Sandoval who recommended the patient be evaluated by a general surgeon for her hiatal hernia. She stated that she was evaluated by Dr. Roblero years ago and the hernia was too small for an operation at that time. The patient denies any fever, abdominal pain, headache, chest pain. She denies any abdominal pain, denies any headache, any blurred vision, any neurological symptoms. Denies any urinary tract infection symptoms. Denies any blood in the stool or black stool. Denies any other symptoms. Other than that nothing significant. PAST MEDICAL/SURGICAL HISTORY As dictated above. SOCIAL HISTORY Denies smoking, drinking or taking drugs. Lives at home with her . She is retired. FAMILY HISTORY Family history is significant for cancer. ALLERGIES No known drug allergies. MEDICATIONS 1. Hydrochlorothiazide 25 mg p.o. daily. 2. Furosemide 20 mg p.o. daily. 3. Calcium carbonate 500 mg q.12h. 4. Eliquis 2.5 mg p.o. b.i.d. 5. Ferrous sulfate 200 mg daily. 6. Simvastatin 20 mg p.o. daily. REVIEW OF SYSTEMS A review of systems is negative except for feeling weak and tired and difficulty swallowing. PHYSICAL EXAMINATION GENERAL: This is a 76-year-old female lying on the bed, not in acute distress. VITAL SIGNS: Temperature 97.9, heart rate 77, respiration 20, blood pressure 108/58, O2 saturation 96% on room air. HEENT: Normocephalic, atraumatic. EOMI. PERRL. Oral mucosa moist. NECK: Supple. No visible thyromegaly or neck mass. Trachea is central. CV: Regular rate and rhythm. LUNGS: Respirations clear to auscultation bilaterally. ABDOMEN: Soft and nontender. Obese. Bowel sounds audible. EXTREMITIES: Bilateral calf tenderness. No joint swelling or erythema. Mild pitting edema. Full range of motion of all extremities. NEUROLOGIC: Awake, alert, oriented x4. No focal deficit. SKIN: Warm and dry. PSYCHIATRIC: Patient is cooperative. Mood and affect are normal. LABORATORY CBC is unremarkable except for hemoglobin was 13.0, now 10.6, hematocrit 38.5, now 32.2. BMP is unremarkable except for potassium was 2.5, now 3.4. LFTs are normal. Lipase 197. PT 11.1, INR 1.0, APTT 25.0. IMAGING CT brain was done and shows no acute intracranial disease, no change from previous study. Chest x-ray done shows a large hiatal hernia, no acute cardiopulmonary abnormality. ASSESSMENT AND PLAN 1. This is a 76-year-old female who came to the ER complaining of generalized weakness and difficulty swallowing, most probably secondary to a large hiatal hernia which is preventing her to eat. Dr. Saul Nesbitt saw the patient from a GI standpoint. The patient is scheduled for an upper GI series to determine whether this is a sliding hernia or a rolling hernia. General surgery is consulted, Dr. Roblero, to discuss surgical correction. There is no need of upper endoscopy at this time per GI, but suggests a reverse Trendelenburg position while sleeping in the bed. 2. History of atrial fibrillation, rate controlled. The patient is on Eliquis 2.5 mg twice a day. 3. Iron deficiency anemia. Continue with ferrous sulfate 200 mg p.o. daily. 4. History of hyperlipidemia. Continue with pravastatin 40 mg p.o. daily. 5. Obesity. 6. History of hypertension. Will monitor blood pressure. 7. History of cholecystectomy, cataract surgery, bladder repair, rectocele, cystocele in the past. 8. Calf tenderness. Check venous Doppler lower extremity, rule out DVT. 9. DVT prophylaxis with Eliquis. 10. GI prophylaxis with Protonix. 11. Hypokalemia. Will replace potassium. 12. The magnesium level is 1.6. I will give her 2 grams of magnesium IV. 13. Anemia. Will check iron studies, B12, folic acid level. 14. We are going to manage the patient on a daily basis and make recommendation on a daily basis. ADDENDUM LABORATORY DATA Labs include CBC shows a WBC count is 9.2, now it is 4.4, hemoglobin was 13.0, now it is 10.6, hematocrit was 38.5, now it is 32.2. BMP totally unremarkable except for potassium was 2.5 now it is 3.4, creatinine was 1.10, now it is 0.63, glucose random 136 high, now it is 102. Calcium was 11.1, now it is 9.2. Troponin-I less than 0.02, lipase 197, total protein, albumin normal. PT 11.1, INR 1.0, APTT 25.0. Arpit Meyer MD EA/REID /8:10 AM /8:59 AM
[2017-05-12] MEDS: SODIUM CHLORIDE 0.9% FLUSH 10 ML FLUSH IV FLUSH SCH ×2 (09:00→20:46)
[2017-05-12] MEDS ORDERED: FERROUS SULFATE 325 MG (65 MG ELEMENTAL IRON) TAB PO SCH (09:00)
[2017-05-12 10:15] LABS: TRANSFERRIN IRON PROFILE 224 MG/DL (200-360)
--- NOTE | 2017-05-12 11:17 | RADRPT ---
EXAM DATE/TIME: 05/12/2017 10:22 [facility] COMPARISON: No previous studies available for comparison. INDICATIONS : Bilateral leg pain. MEDICAL HISTORY : Hypercholesterolemia. Hypertension. A-fib. Pneumonia. Hiatal hernia. Anemia. Measles. SURGICAL HISTORY : Cholecystectomy. Bladder sling. Back surgery. Rotator cuff repair. ENCOUNTER: Initial ACUITY: 3 days PAIN SCORE: 9/10 LOCATION: Bilateral legs. TECHNIQUE: Venous ultrasound of the left and right leg was performed from the inguinal ligament to the proximal calf. Real-time, color Doppler and spectral tracing, compression and augmentation techniques were us ed. FINDINGS: RIGHT LEG: There is normal compressibility of the deep venous system from the inguinal region to the proximal ca lf. No echogenic clot is seen in the lumen of the common femoral, femoral, popliteal, and posterior tibial veins. There is a normal response of the venous system to proximal and distal augmentation an d respiration. LEFT LEG: There is normal compressibility of the deep venous system from the inguinal region to the proximal ca lf. No echogenic clot is seen in the lumen of the common femoral, femoral, popliteal, and posterior tibial veins. There is a normal response of the venous system to proximal and distal augmentation an d respiration. CONCLUSION: Normal examination although there is some difficulty compressing the femoral veins distally due to pa tient discomfort. There is good color flow in those areas. Obinna Cisneros MD on May 12, 2017 at 11:14 Board Certified Radiologist. This report was verified electronically.
[2017-05-12 12:00] VITALS: BP 128/75; PULSE 70; RESP 20; TEMP 96.9; O2SAT 96
[2017-05-12 16:00] VITALS: BP 119/66; PULSE 77; RESP 18; TEMP 97.7; O2SAT 94
--- NOTE | 2017-05-12 16:32 | RADRPT ---
EXAM DATE/TIME: 05/12/2017 10:55 [place] COMPARISON: No previous studies available for comparison. INDICATIONS : Dysphagia, cough when swallows solids. FLUORO TIME: 0.8 minutes IMAGE COUNT: 27 CONTRAST: 1. Liquid E-Z Paque Barium Sulfate (60% w/v, 41% w.w) E-Z Gas II Effervescent granules (Antacid 0.14 oz) MEDICAL HISTORY : Hiatal hernia. SURGICAL HISTORY : None. ENCOUNTER: Subsequent ACUITY: 3 weeks PAIN SCORE: 0/10 LOCATION: upper quadrant abdomen FINDINGS: Clips are seen in the right quadrant from prior cholecystectomy. Several focal densities are seen in the abdomen likely related to ingested material. These vary in position on multiple images. There is degenerative change of the lower lumbar spine. Examination of the swallowing function demonstrates no evidence of aspiration or penetration. The allen dy of the esophagus is unremarkable. Examination of the stomach demonstrates a large hiatal hernia with approximately 1/3 of the stomach a dann the hemidiaphragm. There is no evidence of intraluminal mass or extrinsic compression. The karena mikayla volume appears normal and there are no findings of ulceration. The mucosal pattern appears alex l. The duodenal bulb and sweep appear normal. There are 3 duodenal diverticulum seen at the second port ion the duodenum. There is a small diverticulum seen at the fourth portion of the duodenum. The visua lized small bowel is unremarkable. CONCLUSION: 1. Large hiatal hernia. 2. Duodenal diverticula. Clifton Bansal MD on May 12, 2017 at 16:26 Board Certified Radiologist. This report was verified electronically.
--- NOTE | 2017-05-12 17:23 | HHI.GIFU ---
GI Follow-up Note Consult Follow-up Subjective: Patient laying in bed comfortably.swallowing better. weakness improved. Objective: PHYSICAL EXAMINATION: Vitals signs stable No fever CHEST: Chest is clear to auscultation and percussion. CARDIAC: Regular rate and rhythm with no murmur gallop or rubs. ABDOMEN: Soft, nondistended, obese. nontender; no hepatosplenomegaly; bowel sounds are present in all four quadrants.. SKIN: no jaundice. SOLAR ENERGY SYSTEMS DESIGNER: No focal deficits; alert and oriented times three. Available Data (labs, X- Rays, Procedues) : UGI reviewed-large H-H ASSESSMENT/PLAN: 1. Dysphagia-improved. 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 this maybe causing her symptoms PLAN: 1 Consult Surgery. Pt has seen Dr. Roblero in the past. 2. advance to full liquids if she tolerates clears It was a pleasure seeing Keri Lugo Thank you for this consult. Entered by: Rosendo Gonzalez MD May 12, 2017 17:23
[2017-05-12 20:00] VITALS: BP 106/71; PULSE 72; PULSE 77; RESP 18; TEMP 97.2; O2SAT 99
[2017-05-12] MEDS: TEMAZEPAM 7.5 MG CAP PO PRN (23:01)
[2017-05-13] VITALS (7 sets, daily range): BP systolic 99–134; BP diastolic 56–81; PULSE 56–86; RESP 16–20; TEMP 96.9–97.9; O2SAT 91–98
--- NOTE | 2017-05-13 07:44 | HHI.GIFU ---
GI Follow-up Note Consult Follow-up Subjective: Patient feeling better. Tolerating clears w/o problem Objective: PHYSICAL EXAMINATION: Vitals signs stable No fever CHEST: Chest is clear to auscultation and percussion. CARDIAC: Regular rate and rhythm with no murmur gallop or rubs. ABDOMEN: Soft, obese. nondistended, nontender; no hepatosplenomegaly; bowel sounds are present in all four quadrants. SKIN: no jaundice. TWISTING FRAME CHANGER: No focal deficits; alert and oriented times three. Available Data (labs, X- Rays, Procedures) : labs pending. ASSESSMENT/PLAN: 1. Dysphagia-improved. Her UGI showed a normal swallowing mechanism and the esophagus was ok. 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 this maybe causing her symptoms PLAN: 1 Consult Surgery. Pt has seen Dr. Roblero in the past. 2. advance to full liquids It was a pleasure seeing Keri Lugo Thank you for this consult. It was a pleasure seeing Keri Lugo Thank you for this consult. Entered by: Rosendo Gonzalez MD May 13, 2017 07:44
--- NOTE | 2017-05-13 08:00 | HHI.PR ---
Subjective History of Present Illness Patient tolerating liquid diet will advance as tolerated d/w Lizzette Surgery FUEL MANAGER no plan for surgery in this admission need elective surgery D/W SCHULYER Branch. Review of Systems Constitutional Constitutional: Fatigue, Weakness GI/Abdomen GI/Abdomen Remarks Difficulity swallowing. Vitals/Results Intake & Output 05/12/17 05/12/17 05/13/17 15:00 23:00 07:00 Intake Total 750 ml 214 ml 408 ml Balance 750 ml 214 ml 408 ml Intake Oral 750 ml 80 ml IV Total 214 ml 328 ml # Voids 4 2 # Bowel Movements 1 0 Vital Signs Vital Signs Date Time Temp Pulse Resp B/P Pulse Ox O2 Delivery O2 Flow Rate FiO2 05/13/17 04:00 97.7 86 16 107/68 91 05/13/17 00:00 97.9 58 16 99/56 94 05/12/17 20:00 97.2 72 18 106/71 99 05/12/17 20:00 77 05/12/17 16:00 97.7 77 18 119/66 94 05/12/17 12:00 96.9 70 20 128/75 96 05/12/17 08:00 97.7 73 20 113/61 95 CBC/BMP: 05/12/17 0610 05/12/17 0610 Physical Exam General General Appearance: Well Nourished, No Acute Distress, Comfortable Eyes Eye Exam: Pupils Equal, Pupils Reactive, Sclera White, Extraocular Movement Intact Throat Throat Exam: Oral Mucosa [place] & Moist, Oral Pharynx Normal Neck Neck Exam: Neck Supple, Trachea Midline Pulmonary Resp Exam: Clear Bilaterally, Breath Sounds Equal Cardiology CV Exam: Regular, Normal Sinus Rhythm Gastrointestinal/Abdomen GI Exam: Soft, Non-Tender, Bowel Sounds Present Musculoskeletal MS Exam: Normal Tone Integumentary Skin Exam: Clear, Warm, Dry, Intact Neurologic Neuro Exam: Alert, Awake, Oriented, Speech Clear, Moving All Extremities, No Focal Deficits Psychiatric Psych Exam: Appropriate Responses VTE Prophylaxis VTE Remarks Eliquis PUD Prophylasis PUD Prophylaxis: Protonix Assessment/Plan Assessment/Plan ASSESSMENT AND PLAN This is a 76-year-old female who came to the ER complaining of 1. Generalized weakness and difficulty swallowing, most probably secondary to a large hiatal hernia which is preventing her to eat. Dr. Saul Nesbitt saw the patient from a GI standpoint. The patient is S/P an upper GI series shows large hiatal hernia an dudonal diverticula General surgery input noted d/w Lizzette Surgery FUEL MANAGER no plan for surgery in this admission need elective surgery There is no need of upper endoscopy at this time per GI, but suggests a reverse Trendelenburg position while sleeping in the bed. 2. History of atrial fibrillation, rate controlled. The patient is on Eliquis 2.5 mg twice a day. 3. Iron deficiency anemia. Continue with ferrous sulfate 200 mg p.o. daily. 4. History of hyperlipidemia. Continue with pravastatin 40 mg p.o. daily. 5. Obesity. 6. History of hypertension. Will monitor blood pressure. 7. History of cholecystectomy, cataract surgery, bladder repair, rectocele, cystocele in the past. 8. Calf tenderness. Check venous Doppler lower extremity, rule out DVT. 9. DVT prophylaxis with Eliquis. 10. GI prophylaxis with Protonix. 11. Hypokalemia. Will replace potassium and monitor. 12. The magnesium level is 1.6. I will give her 2 grams of magnesium IV. 13. Anemia. checked iron studies, B12, folic acid level. show Iron deficiency and lower normal B12 level replacement started. 14. We are going to manage the patient on a daily basis and make recommendation on a daily basis. Discussed Condition with: Patient Kyler Meyer MD May 13, 2017 07:59
[2017-05-13] MEDS: DOCUSATE SODIUM 50 MG/SENNA 8.6 MG TAB PO SCH ×2 (08:01→21:00)
[2017-05-13] MEDS: POTASSIUM CHLORIDE 25 MEQ EFFERVESCENT TAB NG SCH ×2 (08:01→21:38)
[2017-05-13] MEDS: PRAVASTATIN SOD 40 MG TAB PO SCH (08:02)
[2017-05-13] MEDS: CALCIUM CARBONATE 500 MG CHEWABLE TAB CHEW SCH ×2 (08:02→21:37)
[2017-05-13] MEDS: APIXABAN 2.5 MG TABLET PO SCH ×2 (08:02→21:37)
[2017-05-13] MEDS: SODIUM CHLORIDE 0.9% FLUSH 10 ML FLUSH IV FLUSH SCH ×2 (08:03→21:00)
--- NOTE | 2017-05-13 08:57 | PD.CONS ---
cc: Joby Roblero MD [facility] Service General Surgery Consult Requested By Dr. Cali Reason for Consult Evaluation of large hiatal hernia Primary Care Physician Sherine Sandoval MD History of Present Illness This is a 76-year-old female with a past medical history of atrial fibrillation , hypertension, hypercholesterolemia, headaches and hiatal hernia. Over the past several weeks she has felt increased dizziness and tired. She reports a decrease in appetite. She reports that when she eats solid food she feels as if she is "gagging" on the food. She does report she has no issues swallowing liquids. She was referred to our office to see Dr. Roblero in November of this year for evaluation of a hiatal hernia. At that time she was asymptomatic and able to tolerate a diet with no issues. A General Surgery consultation has been requested for evaluation of possible surgical repair of a symptomatic hiatal hernia. Review of Systems Constitutional: COMPLAINS OF: Change in appetite, DENIES: Fever, Chills Endocrine: DENIES: Polydipsia, Polyuria, Polyphagia Eyes: DENIES: Diplopia Ears, nose, mouth, throat: DENIES: Hearing loss Respiratory: DENIES: Apneas Cardiovascular: DENIES: Chest pain Gastrointestinal: COMPLAINS OF: Difficulty Swallowing (solid food only ), DENIES: Abdominal pain, Nausea, Vomiting Genitourinary: DENIES: Urinary frequency Musculoskeletal: DENIES: Joint pain Integumentary: DENIES: Abnormal pigmentation Hematologic/lymphatic: DENIES: Bruising Immunologic/allergic: DENIES: Eczema Neurologic: DENIES: Abnormal gait, Headache Psychiatric: DENIES: Mood changes, Depression, Hallucinations Past Family Social History Past Medical History Atrial fibrillation Hypertension Hypercholesterolemia Headaches Hiatal hernia Past Surgical History Cholecystectomy Cataract surgery Bladder repair with mesh Rectocele cystocele Reported Medications Eliquis Simvastatin Ferrous sulfate Furosemide Calcium carbonate Hydrochlorothiazide Allergies: Coded Allergies: No Known Allergies (Verified , 05/11/17) Active Ordered Medications Current Medications Medications (Trade) Dose Ordered Sig/Kirk Route Start Time Stop Time Status Last Admin (NS Flush) 2 ml UNSCH PRN IV FLUSH 05/11/17 09:30 (NS Flush) 2 ml BID IV FLUSH 05/11/17 21:00 05/13/17 08:03 (Zofran Inj) 4 mg Q6H PRN IVP 05/11/17 09:30 (Narcan Inj) 0.4 mg UNSCH PRN IV 05/11/17 09:30 (Gretchen-Colace) 1 tab BID PO 05/11/17 21:00 05/13/17 08:01 (Milk Of Magnesia Liq) 30 ml Q12H PRN PO 05/11/17 09:30 (Senokot) 17.2 mg Q12H PRN PO 05/11/17 09:30 (Dulcolax Supp) 10 mg DAILY PRN RECTAL 05/11/17 09:30 (Lactulose Liq) 30 ml DAILY PRN PO 05/11/17 09:30 (Eliquis) 2.5 mg BID PO 05/11/17 21:00 05/13/17 08:02 (Pravachol) 40 mg DAILY PO 05/12/17 09:00 05/13/17 08:02 Potassium Bicarb/ Potassium Chloride 25 meq 25 meq Q12HR NG 05/11/17 21:00 05/13/17 08:01 (NS + KCl 40 Meq Inj) 1,000 ml @ 42 mls/hr [id number] IV 05/11/17 10:36 05/12/17 04:04 (Tums Chew) 500 mg Q12HR CHEW 05/11/17 21:00 05/13/17 08:02 (Restoril) 7.5 mg HS PRN PO 05/12/17 23:00 05/12/17 23:01 (Ferrous Sulfate) 162.5 mg DAILY PO 05/13/17 09:00 05/13/17 08:17 Family History Noncontributory Social History Denies tobacco use Denies EtOH use Denies illicit drug use Lives at home with her . Physical Exam Vital Signs Vital Signs Date Time Temp Pulse Resp B/P Pulse Ox O2 Delivery O2 Flow Rate FiO2 05/13/17 08:00 97.6 72 20 115/68 98 05/13/17 04:00 97.7 86 16 107/68 91 05/13/17 00:00 97.9 58 16 99/56 94 05/12/17 20:00 97.2 72 18 106/71 99 05/12/17 20:00 77 05/12/17 16:00 97.7 77 18 119/66 94 05/12/17 12:00 96.9 70 20 128/75 96 Physical Exam GENERAL: Very pleasant 76 year old female resting in bed in no acute distress. SKIN: Warm and dry. HEAD: Atraumatic. Normocephalic. EYES: Pupils equal and round. No scleral icterus. No injection or drainage. ENT: No nasal bleeding or discharge. Mucous membranes pink and moist. NECK: Trachea midline. CARDIOVASCULAR: Irregular rhythm; heart rate controlled in the 70s. RESPIRATORY: No accessory muscle use. Clear to auscultation. Breath sounds equal bilaterally. GASTROINTESTINAL: Abdomen soft, non-tender, nondistended. Well healed midline incision. MUSCULOSKELETAL: Extremities without clubbing, cyanosis, or edema. No obvious deformities. NEUROLOGICAL: Awake and alert. No obvious cranial nerve deficits. Motor grossly within normal limits. Five out of 5 muscle strength in the arms and legs. Normal speech. PSYCHIATRIC: Appropriate mood and affect; insight and judgment normal. Result Diagram: 05/12/17 0610 05/12/17 0610 Imaging Last 48 hours Impressions Upper GI Series 05/12/17 0000 Signed Impressions: Service Date/Time: Friday, May 12, 2017 10:55 - CONCLUSION: 1. Large hiatal hernia. 2. Duodenal diverticula. Clifton Bansal MD Lower Extremity Ultrasound 05/12/17 0000 Signed Impressions: Service Date/Time: Friday, May 12, 2017 10:22 - CONCLUSION: Normal examination although there is some difficulty compressing the femoral veins distally due to patient discomfort. There is good color flow in those areas. Obinna Cisneros MD Assessment and Plan Assessment and Plan 76 year old female with increased weakness and difficulty swallowing solid foods for approximately 2 weeks; evaluation of large hiatal hernia -Plan to advance diet to Full liquids -If tolerates full liquid diet for breakfast and lunch okay to DC from GS standpoint -DC home on full liquids + Ensure shakes -Continue all home medications as usual -Follow up in office for evaluation of repair of hiatal hernia on elective basis with Dr. Roblero -I have already set up her appointment next week and provided the information to patient (May 20 at 1:50PM) -I spoke to Dr. Bridgette Meyer about plan -Plan discussed with patient and ; they agree with plan and all questions were answered -Thank you for allowing us to participate in Mrs. Lugo's care Discussed Condition With Dr. Annika Meyer Mr and Mrs. Lugo Attending Statement The exam, history, and the medical decision-making described in the above note were completed with the assistance of the mid-level provider. I reviewed and agree with the findings presented. . Zhanna Green May 13, 2017 08:57 Joby Roblero MD May 14, 2017 15:29
[2017-05-13] MEDS ORDERED: FERROUS SULFATE 325 MG (65 MG ELEMENTAL IRON) TAB PO SCH (09:00)
[2017-05-13] MEDS ORDERED: POTASSIUM CHLORIDE 10 MEQ CONTROLLED RELEASE TAB PO ONE (09:15)
[2017-05-13] MEDS: NS + KCL 40 MEQ INJ 1,000 ML IV SCH (09:50)
[2017-05-13 10:02] LABS: BASOPHIL % 0.5 % (0.0-2.0); EOSINOPHIL # 0.2 TH/MM3 (0-0.4); EOSINOPHIL % 3.8 % (0.0-4.0); HEMO FLAGS DIFF FINAL; LYMPH % 23.8 % (9.0-44.0); LYMPHOCYTE # 1.4 TH/MM3 (1.0-4.8); MEAN CELL VOLUME 90.2 FL (80.0-100.0); MEAN CORPUSCULAR HGB CONC 34.3 % (32.0-36.0); MONO % 5.5 % (0.0-8.0); NEUT % 66.4 % (16.0-70.0); PLATELET COUNT 206 TH/MM3 (150-450); RED BLOOD COUNT 3.99 MIL/MM3 (4.00-5.30); RED CELL DISTRIBUTION WIDTH 13.9 % (11.6-17.2); WHITE BLOOD COUNT 5.9 TH/MM3 (4.0-11.0)
[2017-05-13 10:16] LABS: ALT (GPT) 27 U/L (10-53); AST (GOT) 30 U/L (15-37)
[2017-05-13 10:32] LABS: ALKALINE PHOSPHATASE 84 U/L (45-117); ANION GAP 7 MEQ/L (5-15); BICARBONATE 27.9 MEQ/L (21.0-32.0); BLOOD UREA NITROGEN 8 MG/DL (7-18); CHLORIDE 108 MEQ/L (98-107); GLOMERULAR FILTRATION RATE 65 ML/MIN (>89); POTASSIUM 4.6 MEQ/L (3.5-5.1); SODIUM (NA) 143 MEQ/L (136-145); TOTAL BILIRUBIN ADULT 0.9 MG/DL (0.2-1.0)
[2017-05-13] MEDS ORDERED: FERROUS SULFATE 325 MG (65 MG ELEMENTAL IRON) TAB PO ONE (10:45)
[2017-05-13] MEDS: CYANOCOBALAMIN 1,000 MCG TAB PO SCH (10:51)
[2017-05-13] MEDS: TEMAZEPAM 7.5 MG CAP PO PRN (21:36)
[2017-05-13] MEDS: FERROUS SULFATE 325 MG (65 MG ELEMENTAL IRON) TAB PO SCH (21:37)
[2017-05-14] VITALS (7 sets, daily range): BP systolic 114–130; BP diastolic 63–80; PULSE 70–82; RESP 17–20; TEMP 96–98.7; O2SAT 95–99
[2017-05-14 08:02] LABS: AUTOMATED NEUTROPHIL # 3.4 TH/MM3 (1.8-7.7); BASOPHIL # 0.1 TH/MM3 (0-0.2); BASOPHIL % 1.1 % (0.0-2.0); EOSINOPHIL # 0.2 TH/MM3 (0-0.4); EOSINOPHIL % 4.1 % (0.0-4.0); HEMATOCRIT 33.8 % (35.0-46.0); HEMO FLAGS DIFF FINAL; LYMPH % 26.1 % (9.0-44.0); LYMPHOCYTE # 1.4 TH/MM3 (1.0-4.8); MEAN CELL VOLUME 90.1 FL (80.0-100.0); MEAN CORPUSCULAR HEMOGLOBIN 28.8 PG (27.0-34.0); MEAN CORPUSCULAR HGB CONC 31.9 % (32.0-36.0); MONO % 5.6 % (0.0-8.0); NEUT % 63.1 % (16.0-70.0); PLATELET COUNT 198 TH/MM3 (150-450); RED BLOOD COUNT 3.76 MIL/MM3 (4.00-5.30); RED CELL DISTRIBUTION WIDTH 13.9 % (11.6-17.2); WHITE BLOOD COUNT 5.4 TH/MM3 (4.0-11.0)
[2017-05-14 08:07] LABS: CHLORIDE 115 MEQ/L (98-107); SODIUM (NA) 146 MEQ/L (136-145)
[2017-05-14 08:11] LABS: BLOOD UREA NITROGEN 4 MG/DL (7-18)
[2017-05-14 08:12] LABS: ANION GAP 6 MEQ/L (5-15); BICARBONATE 25.4 MEQ/L (21.0-32.0)
[2017-05-14 08:14] LABS: ALT (GPT) 26 U/L (10-53); AST (GOT) 31 U/L (15-37); GLOMERULAR FILTRATION RATE 88 ML/MIN (>89)
[2017-05-14 08:15] LABS: TOTAL BILIRUBIN ADULT 0.6 MG/DL (0.2-1.0)
[2017-05-14 08:16] LABS: ALKALINE PHOSPHATASE 78 U/L (45-117)
--- NOTE | 2017-05-14 08:29 | HHI.PR ---
Subjective History of Present Illness Patient tolerating liquid diet unable to tolerate solid D/W SCHUYLER Branch. Review of Systems Constitutional Constitutional: Fatigue, Weakness GI/Abdomen GI/Abdomen Remarks Difficulity swallowing. Vitals/Results Intake & Output 05/13/17 05/13/17 05/14/17 14:59 22:59 06:59 Intake Total 875 ml 540 ml 480 ml Output Total 2 ml Balance 875 ml 540 ml 478 ml Intake Oral 875 ml 540 ml 480 ml Output Urine Total 2 ml # Voids 4 3 # Bowel Movements 0 0 Vital Signs Vital Signs Date Time Temp Pulse Resp B/P Pulse Ox O2 Delivery O2 Flow Rate FiO2 05/14/17 08:00 97.7 71 17 116/63 95 05/14/17 04:00 97.7 78 18 114/63 95 05/14/17 00:00 97.2 78 20 129/74 96 05/13/17 20:00 72 05/13/17 20:00 97.7 74 20 118/72 98 05/13/17 16:00 97.5 56 20 134/81 94 05/13/17 12:00 96.9 74 20 125/72 97 CBC/BMP: 05/14/17 0748 05/14/17 0748 Lab Results Laboratory Tests Test 05/13/17 05/14/17 09:47 07:48 White Blood Count 5.9 TH/MM3 5.4 TH/MM3 Red Blood Count 3.99 MIL/MM3 3.76 MIL/MM3 Hemoglobin 12.4 GM/DL 10.8 GM/DL Hematocrit 36.0 % 33.8 % Mean Corpuscular Volume 90.2 FL 90.1 FL Mean Corpuscular Hemoglobin 31.0 PG 28.8 PG Mean Corpuscular Hemoglobin 34.3 % 31.9 % Concent Red Cell Distribution Width 13.9 % 13.9 % Platelet Count 206 TH/MM3 198 TH/MM3 Mean Platelet Volume 8.3 FL 8.4 FL Neutrophils (%) (Auto) 66.4 % 63.1 % Lymphocytes (%) (Auto) 23.8 % 26.1 % Monocytes (%) (Auto) 5.5 % 5.6 % Eosinophils (%) (Auto) 3.8 % 4.1 % Basophils (%) (Auto) 0.5 % 1.1 % Neutrophils # (Auto) 4.0 TH/MM3 3.4 TH/MM3 Lymphocytes # (Auto) 1.4 TH/MM3 1.4 TH/MM3 Monocytes # (Auto) 0.3 TH/MM3 0.3 TH/MM3 Eosinophils # (Auto) 0.2 TH/MM3 0.2 TH/MM3 Basophils # (Auto) 0.0 TH/MM3 0.1 TH/MM3 CBC Comment DIFF FINAL DIFF FINAL Differential Comment Sodium Level 143 MEQ/L 146 MEQ/L Potassium Level 4.6 MEQ/L 5.0 MEQ/L Chloride Level 108 MEQ/L 115 MEQ/L Carbon Dioxide Level 27.9 MEQ/L 25.4 MEQ/L Anion Gap 7 MEQ/L 6 MEQ/L Blood Urea Nitrogen 8 MG/DL 4 MG/DL Creatinine 0.85 MG/DL 0.65 MG/DL Estimat Glomerular Filtration 65 ML/MIN 88 ML/MIN Rate Random Glucose 160 MG/DL 95 MG/DL Calcium Level 8.6 MG/DL 8.3 MG/DL Magnesium Level 2.0 MG/DL Total Bilirubin 0.9 MG/DL 0.6 MG/DL Aspartate Amino Transf 30 U/L 31 U/L (AST/SGOT) Alanine Aminotransferase 27 U/L 26 U/L (ALT/SGPT) Alkaline Phosphatase 84 U/L 78 U/L Total Protein 7.1 GM/DL 6.3 GM/DL Albumin 3.7 GM/DL 3.2 GM/DL Physical Exam General General Appearance: Well Nourished, No Acute Distress, Comfortable Eyes Eye Exam: Pupils Equal, Pupils Reactive, Sclera White, Extraocular Movement Intact Throat Throat Exam: Oral Mucosa [place] & Moist, Oral Pharynx Normal Neck Neck Exam: Neck Supple, Trachea Midline Pulmonary Resp Exam: Clear Bilaterally, Breath Sounds Equal Cardiology CV Exam: Regular, Normal Sinus Rhythm Gastrointestinal/Abdomen GI Exam: Soft, Non-Tender, Bowel Sounds Present Musculoskeletal MS Exam: Normal Tone Integumentary Skin Exam: Clear, Warm, Dry, Intact Neurologic Neuro Exam: Alert, Awake, Oriented, Speech Clear, Moving All Extremities, No Focal Deficits Psychiatric Psych Exam: Appropriate Responses VTE Prophylaxis VTE Remarks Eliquis PUD Prophylasis PUD Prophylaxis: Protonix Assessment/Plan Assessment/Plan ASSESSMENT AND PLAN This is a 76-year-old female who came to the ER complaining of 1. Generalized weakness and difficulty swallowing, most probably secondary to a large hiatal hernia which is preventing her to eat. Dr. Saul Nesbitt saw the patient from a GI standpoint. The patient is S/P an upper GI series shows large hiatal hernia an dudonal diverticula General surgery input noted d/w Lizzette Surgery TILE BURNER no plan for surgery in this admission need elective surgery There is no need of upper endoscopy at this time per GI, but suggests a reverse Trendelenburg position while sleeping in the bed. 2. History of atrial fibrillation, rate controlled. The patient is on Eliquis 2.5 mg twice a day. 3. Iron deficiency anemia. Continue with ferrous sulfate 200 mg p.o. daily. 4. History of hyperlipidemia. Continue with pravastatin 40 mg p.o. daily. 5. Obesity. 6. History of hypertension. Will monitor blood pressure. 7. History of cholecystectomy, cataract surgery, bladder repair, rectocele, cystocele in the past. 8. Calf tenderness. Check venous Doppler lower extremity, negative for DVT. 9. DVT prophylaxis with Eliquis. 10. GI prophylaxis with Protonix. 11. Hypokalemia. resolved. 12. The magnesium level is 1.6. s/p 2 grams of magnesium IV. 13. Anemia. checked iron studies, B12, folic acid level. show Iron deficiency and lower normal B12 level on replacement 14. We are going to manage the patient on a daily basis and make recommendation on a daily basis. Discussed Condition with: Patient Kyler Meyer MD May 14, 2017 08:29
[2017-05-14] MEDS: CALCIUM CARBONATE 500 MG CHEWABLE TAB CHEW SCH ×2 (08:34→21:25)
[2017-05-14] MEDS: FERROUS SULFATE 325 MG (65 MG ELEMENTAL IRON) TAB PO SCH ×2 (08:35→21:25)
[2017-05-14] MEDS: APIXABAN 2.5 MG TABLET PO SCH ×2 (08:35→21:25)
[2017-05-14] MEDS: PRAVASTATIN SOD 40 MG TAB PO SCH (08:35)
[2017-05-14] MEDS: POTASSIUM CHLORIDE 25 MEQ EFFERVESCENT TAB NG SCH ×2 (08:35→21:25)
[2017-05-14] MEDS: CYANOCOBALAMIN 1,000 MCG TAB PO SCH (08:36)
[2017-05-14] MEDS: SODIUM CHLORIDE 0.9% FLUSH 10 ML FLUSH IV FLUSH SCH ×2 (08:36→21:00)
[2017-05-14] MEDS: DOCUSATE SODIUM 50 MG/SENNA 8.6 MG TAB PO SCH ×2 (08:36→21:25)
[2017-05-14] MEDS: NS + KCL 40 MEQ INJ 1,000 ML IV SCH (08:38)
--- NOTE | 2017-05-14 17:22 | HHI.GIFU ---
GI Follow-up Note Consult Follow-up Subjective: Patient sitting in chair. Had problems with full liquids but on further questioning she can tolerate Ensure and creamed soup w/o problems Objective: PHYSICAL EXAMINATION: Vitals signs stable No fever CHEST: Chest is clear to auscultation and percussion. CARDIAC: Regular rate and rhythm with no murmur gallop or rubs. ABDOMEN: Soft, nondistended, nontender; no hepatosplenomegaly; bowel sounds are present in all four quadrants. EXTREMITIES: No edema. SKIN: no jaundice. PHOTOLETTERING MACHINE OPERATOR: alert and oriented times three. Available Data (labs, X- Rays, Procedues) : I reviewed her UGI and past CT with her ASSESSMENT/PLAN: 1. Dysphagia-improved. Her UGI showed a normal swallowing mechanism and the esophagus was ok. 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 this maybe causing her symptoms. She was able to tolerate diet as mentioned above PLAN: 1 Pt wants to go home. If she continues to do well she can be D/C on the above diet (Ensure/creamed soups) It was a pleasure seeing Keri Lugo Thank you for this consult. Entered by: Rosendo Gonzalez MD May 14, 2017 17:22
[2017-05-14] MEDS: TEMAZEPAM 7.5 MG CAP PO PRN (21:25)
[2017-05-15] VITALS: BP 110/66; PULSE 67; RESP 20; TEMP 96.7; O2SAT 100
[2017-05-15 04:00] VITALS: BP 113/67; PULSE 76; RESP 20; TEMP 97.6; O2SAT 97
[2017-05-15 07:01] LABS: AUTOMATED NEUTROPHIL # 2.9 TH/MM3 (1.8-7.7); BASOPHIL % 0.3 % (0.0-2.0); EOSINOPHIL # 0.2 TH/MM3 (0-0.4); HEMO FLAGS DIFF FINAL; LYMPH % 25.1 % (9.0-44.0); LYMPHOCYTE # 1.1 TH/MM3 (1.0-4.8); MEAN CELL VOLUME 90.3 FL (80.0-100.0); MEAN CORPUSCULAR HEMOGLOBIN 29.5 PG (27.0-34.0); MEAN CORPUSCULAR HGB CONC 32.6 % (32.0-36.0); MONO % 7.7 % (0.0-8.0); NEUT % 62.9 % (16.0-70.0); PLATELET COUNT 188 TH/MM3 (150-450); RED BLOOD COUNT 3.66 MIL/MM3 (4.00-5.30); RED CELL DISTRIBUTION WIDTH 14.2 % (11.6-17.2); WHITE BLOOD COUNT 4.6 TH/MM3 (4.0-11.0)
[2017-05-15 07:09] LABS: CHLORIDE 115 MEQ/L (98-107); POTASSIUM 4.7 MEQ/L (3.5-5.1); SODIUM (NA) 145 MEQ/L (136-145)
[2017-05-15 07:14] LABS: ANION GAP 7 MEQ/L (5-15); BICARBONATE 23.1 MEQ/L (21.0-32.0); BLOOD UREA NITROGEN 5 MG/DL (7-18)
[2017-05-15 07:17] LABS: ALT (GPT) 23 U/L (10-53); AST (GOT) 28 U/L (15-37); GLOMERULAR FILTRATION RATE 103 ML/MIN (>89)
[2017-05-15 07:19] LABS: TOTAL BILIRUBIN ADULT 0.6 MG/DL (0.2-1.0)
[2017-05-15 07:20] LABS: ALKALINE PHOSPHATASE 71 U/L (45-117)
[2017-05-15 08:00] VITALS: BP 138/73; PULSE 80; RESP 20; TEMP 97.2; O2SAT 99
[2017-05-15] MEDS: CALCIUM CARBONATE 500 MG CHEWABLE TAB CHEW SCH (08:08)
[2017-05-15] MEDS: FERROUS SULFATE 325 MG (65 MG ELEMENTAL IRON) TAB PO SCH (08:09)
[2017-05-15] MEDS: CYANOCOBALAMIN 1,000 MCG TAB PO SCH (08:10)
[2017-05-15] MEDS: DOCUSATE SODIUM 50 MG/SENNA 8.6 MG TAB PO SCH (08:10)
[2017-05-15] MEDS: POTASSIUM CHLORIDE 25 MEQ EFFERVESCENT TAB NG SCH (08:10)
[2017-05-15] MEDS: APIXABAN 2.5 MG TABLET PO SCH (08:10)
[2017-05-15] MEDS: PRAVASTATIN SOD 40 MG TAB PO SCH (08:10)
[2017-05-15] MEDS: NS + KCL 40 MEQ INJ 1,000 ML IV SCH (08:11)
[2017-05-15] MEDS: SODIUM CHLORIDE 0.9% FLUSH 10 ML FLUSH IV FLUSH SCH (09:00)
--- NOTE | 2017-05-15 09:46 | HHI.PR ---
Subjective History of Present Illness Patient tolerating liquid diet unable to tolerate solid D/W SCHUYLER Last... ok to dc home today need hiatal hernia surgery as out patient Review of Systems Constitutional Constitutional: Fatigue, Weakness GI/Abdomen GI/Abdomen Remarks Difficulity swallowing. Vitals/Results Intake & Output 05/14/17 05/14/17 05/15/17 15:00 23:00 07:00 Intake Total 760 ml 60 ml Balance 760 ml 60 ml Intake Oral 760 ml 60 ml # Voids 1 2 2 # Bowel Movements 1 0 0 Vital Signs Vital Signs Date Time Temp Pulse Resp B/P Pulse Ox O2 Delivery O2 Flow Rate FiO2 05/15/17 08:00 97.2 80 20 138/73 99 05/15/17 04:00 97.6 76 20 113/67 97 05/15/17 00:00 96.7 67 20 110/66 100 05/14/17 20:00 96.0 82 20 130/72 99 05/14/17 20:00 78 05/14/17 16:00 97.6 81 17 122/76 96 05/14/17 12:00 98.7 71 18 117/80 98 05/14/17 10:00 70 CBC/BMP: 05/15/17 0547 05/15/17 0547 Lab Results Laboratory Tests Test 05/15/17 05:47 White Blood Count 4.6 TH/MM3 Red Blood Count 3.66 MIL/MM3 Hemoglobin 10.8 GM/DL Hematocrit 33.0 % Mean Corpuscular Volume 90.3 FL Mean Corpuscular Hemoglobin 29.5 PG Mean Corpuscular Hemoglobin 32.6 % Concent Red Cell Distribution Width 14.2 % Platelet Count 188 TH/MM3 Mean Platelet Volume 8.6 FL Neutrophils (%) (Auto) 62.9 % Lymphocytes (%) (Auto) 25.1 % Monocytes (%) (Auto) 7.7 % Eosinophils (%) (Auto) 4.0 % Basophils (%) (Auto) 0.3 % Neutrophils # (Auto) 2.9 TH/MM3 Lymphocytes # (Auto) 1.1 TH/MM3 Monocytes # (Auto) 0.4 TH/MM3 Eosinophils # (Auto) 0.2 TH/MM3 Basophils # (Auto) 0.0 TH/MM3 CBC Comment DIFF FINAL Differential Comment Sodium Level 145 MEQ/L Potassium Level 4.7 MEQ/L Chloride Level 115 MEQ/L Carbon Dioxide Level 23.1 MEQ/L Anion Gap 7 MEQ/L Blood Urea Nitrogen 5 MG/DL Creatinine 0.57 MG/DL Estimat Glomerular Filtration 103 ML/MIN Rate Random Glucose 82 MG/DL Calcium Level 8.2 MG/DL Total Bilirubin 0.6 MG/DL Aspartate Amino Transf 28 U/L (AST/SGOT) Alanine Aminotransferase 23 U/L (ALT/SGPT) Alkaline Phosphatase 71 U/L Total Protein 5.8 GM/DL Albumin 3.0 GM/DL Physical Exam General General Appearance: Well Nourished, No Acute Distress, Comfortable Eyes Eye Exam: Pupils Equal, Pupils Reactive, Sclera White, Extraocular Movement Intact Throat Throat Exam: Oral Mucosa [place] & Moist, Oral Pharynx Normal Neck Neck Exam: Neck Supple, Trachea Midline Pulmonary Resp Exam: Clear Bilaterally, Breath Sounds Equal Cardiology CV Exam: Regular, Normal Sinus Rhythm Gastrointestinal/Abdomen GI Exam: Soft, Non-Tender, Bowel Sounds Present Musculoskeletal MS Exam: Normal Tone Integumentary Skin Exam: Clear, Warm, Dry, Intact Neurologic Neuro Exam: Alert, Awake, Oriented, Speech Clear, Moving All Extremities, No Focal Deficits Psychiatric Psych Exam: Appropriate Responses VTE Prophylaxis VTE Remarks Eliquis PUD Prophylasis PUD Prophylaxis: Protonix Assessment/Plan Assessment/Plan ASSESSMENT AND PLAN This is a 76-year-old female who came to the ER complaining of 1. Generalized weakness and difficulty swallowing, most probably secondary to a large hiatal hernia which is preventing her to eat. Dr. Saul Nesbitt saw the patient from a GI standpoint. The patient is S/P an upper GI series shows large hiatal hernia an dudonal diverticula General surgery input noted d/w Lizzette Surgery BOILER TENDERS SUPERVISOR no plan for surgery in this admission need elective surgery need to hold eliquis before surgery. There is no need of upper endoscopy at this time per GI, but suggests a reverse Trendelenburg position while sleeping in the bed. 2. History of atrial fibrillation, rate controlled. The patient is on Eliquis 2.5 mg twice a day. 3. Iron deficiency anemia. Continue with ferrous sulfate 200 mg p.o. daily. 4. History of hyperlipidemia. Continue with pravastatin 40 mg p.o. daily. 5. Obesity. 6. History of hypertension. Will monitor blood pressure. 7. History of cholecystectomy, cataract surgery, bladder repair, rectocele, cystocele in the past. 8. Calf tenderness. Check venous Doppler lower extremity, negative for DVT. 9. DVT prophylaxis with Eliquis. 10. GI prophylaxis with Protonix. 11. Hypokalemia. resolved. 12. The magnesium level is 1.6. s/p 2 grams of magnesium IV. 13. Anemia. checked iron studies, B12, folic acid level. show Iron deficiency and lower normal B12 level on replacement ok to dc home today need hiatal hernia surgery as out patient Follow up with PCP/ General surgery 1 week Discussed Condition with: Patient Kyler Meyer MD May 15, 2017 09:46
[2017-05-15] MEDS ORDERED: VITA10002 PO (10:11)
--- NOTE | 2017-05-21 20:45 | MD ---
cc: KYLER KENYON MD ADMISSION DATE: 05/11/2017 DISCHARGE DATE: 05/15/2017 DISPOSITION: It is okay to discharge the patient home. CONDITION AT THE TIME OF DISCHARGE: Satisfactory. DISCHARGE ACTIVITY: As tolerated. DISCHARGE DIET: Creamed soup diet and liquid diet. ALLERGIES: NO KNOWN DRUG ALLERGIES. DISCHARGE MEDICATIONS: 1. B12 1000 micrograms p.o. daily. 2. Eliquis 2.5 milligrams twice a day. 3. Calcium carbonate 500 milligrams q. 12 hours. 4. Ferrous sulfate 200 milligrams p.o. daily. 5. Furosemide 20 milligrams twice a day. 6. Hydrochlorothiazide 25 milligrams p.o. daily. 7. Simvastatin 20 milligrams p.o. daily. DISCHARGE INSTRUCTIONS: The patient was advised to follow up with his primary care physician and general surgery in two to three days. ADMISSION DIAGNOSIS: 1. Generalized weakness and difficulty swallowing secondary to large hiatal hernia which is preventing her to eat. Dr. Saul Nesbitt saw the patient and upper GI series was done and showed large hiatal hernia and a duodenal diverticula. General surgery saw the patient and wants to do surgery as an outpatient electively. The patient was advised to follow up with general surgery as an outpatient and will have to discontinue the Eliquis before surgery. 2. History of atrial fibrillation. 3. History of iron deficiency anemia. 4. History of hypertension. 5. B12 deficiency. 6. History of hypertension. 7. History of cholecystectomy. 8. Cataract surgery. 9. Bladder repair. 10. Rectocele and cystocele surgery in the past. 11. Hypokalemia, resolved. 12. Anemia. The patient has B12 deficiency and iron deficiency. BRIEF HISTORY AND HOSPITAL COURSE: This is a 76-year-old female admitted with generalized weakness and difficulty swallowing diagnosed with a large hiatal hernia. Her GI doctor, Dr. Saul Nesbitt, saw the patient during the hospital stay. The patient remained stable. No acute event happened. The patient was discharged in satisfactory condition. The patient was not able to tolerate solid food. The patient was advised to use creamed soup or liquid diet until she gets the surgery. CT brain was done which showed nothing acute. Chest x-ray was done and showed large hiatal hernia. No acute cardiopulmonary disease. Upper GI series showed large hiatal hernia and duodenal diverticula. Lower extremity ultrasound done was negative for DVT. The patient remained stable and was discharged in satisfactory condition. Further details in the medical record. Kyler Kenyon MD EA/ANUSHA /10:21 AM /8:31 PM
== END 2017-05-15 10:48 | disposition home or self-care (01) ==
LOC: PHED 07:00 → PHEDA 09:24 → PH3A 10:29
PROVIDERS: ADMIT Family Medicine; ATTEND Family Medicine
DX: R53.1 Weakness (principal); R13.10 Dysphagia, unspecified; I48.91 Unspecified atrial fibrillation; D50.9 Iron deficiency anemia, unspecified; E78.5 Hyperlipidemia, unspecified; E87.6 Hypokalemia; K44.9 Diaphragmatic hernia without obstruction or gangrene; E83.42 Hypomagnesemia; I10 Essential (primary) hypertension; E66.9 Obesity, unspecified; Z79.01 Long term (current) use of anticoagulants; Z79.899 Other long term (current) drug therapy; Z68.41 Body mass index [BMI] 40.0-44.9, adult
CPT/HCPCS: 70450; 71010; 74240; 76937; 80048; 80053; 82550; 82607; 82746; 83540; 83550; 83690; 83735; 84165; 84484; 85025; 85610; 85652; 85730; 93005; 93970; 96365; 97110; 97116; 97162; 99285; G0378; G8987; G8988; J3475; J3480; J7040

== ENCOUNTER 2017-06-17 08:00 | Inpatient (IN) | payer MEDICARE, BC ==
[~2017-06-17] VITALS: Ht 152.4 cm; Wt 87.2 kg
[~2017-06-17 08:00] MED LIST changes: -APIX2.5T PO; -BENZ100 PO; -CEFT500T3 PO; -FERR1TAB36 PO; -FURO20TA PO; -HYDR25TA5 PO; +VITA10002 PO; -VITA500T PO
[2017-07-26] MEDS ORDERED: APIX5TAB PO (13:53)
[2017-08-23] MEDS ORDERED: DIGO0.12 PO (14:33)
[2017-08-23] MEDS ORDERED: SPIR50TA PO (14:33)
[2017-08-24] MEDS ORDERED: CALC1TAB87 PO (11:47)
[2017-08-24] MEDS ORDERED: SODIUM CHLORID 0.9% 500 ML IV PRN (12:15)
[2017-08-24] MEDS ORDERED: CHLORHEXIDINE GLUCONATE 2 % 1 PACK (2 CLOTHS) TOPICAL PRN (12:15)
[2017-08-24] MEDS ORDERED: LACTATED RINGER'S 1000 ML IV PRN (12:15)
[2017-08-24] MEDS ORDERED: INSULIN HUMAN REGULAR 1,000 UNITS/10 ML VIAL SQ PRN (12:15)
[2017-08-24] MEDS ORDERED: POVIDONE IODINE 5% (ANTISEPSIS KIT) 4 APPLICATIONS EACH NARE PRN (12:15)
[2017-08-24] MEDS ORDERED: METOPROLOL TARTRATE 25 MG TAB PO PRN (12:15)
[2017-08-24 12:32] LABS: AUTOMATED NEUTROPHIL # 4.8 TH/MM3 (1.8-7.7); BASOPHIL # 0.1 TH/MM3 (0-0.2); BASOPHIL % 0.9 % (0.0-2.0); EOSINOPHIL # 0.2 TH/MM3 (0-0.4); EOSINOPHIL % 2.2 % (0.0-4.0); HEMATOCRIT 30.8 % (35.0-46.0); HEMO FLAGS DIFF FINAL; LYMPHOCYTE # 1.5 TH/MM3 (1.0-4.8); MEAN CELL VOLUME 88.1 FL (80.0-100.0); MEAN CORPUSCULAR HEMOGLOBIN 30.5 PG (27.0-34.0); MEAN CORPUSCULAR HGB CONC 34.6 % (32.0-36.0); MONO % 6.7 % (0.0-8.0); NEUT % 68.2 % (16.0-70.0); PLATELET COUNT 204 TH/MM3 (150-450)
[2017-08-24] MEDS: ceFAZolin 2 GM PREMIX 50 ML IV SCH ×2 (13:31→14:05)
[2017-08-24] MEDS ORDERED: BUPIVACAINE/EPINEPHRINE 0.25% PF 10 ML VIAL INFIL ONE (14:05)
[2017-08-24] MEDS ORDERED: DO NOT ADM ANY ANTICOAGULANT DRUGS PRN (15:52)
[2017-08-24] MEDS ORDERED: LACTATED RINGER'S 1000 ML INJ 1,000 ML IV SCH (16:02)
--- NOTE | 2017-08-24 16:02 | PD.OP ---
Operative Report Date of Surgery: Aug 24, 2017 Preoperative Diagnosis: symptomatic para esophageal hernia, dysphagia, cough Postoperative Diagnosis: same Procedure: lap repair HH with GoreBIO A mesh and partial fundoplication Anesthesia: general Surgeon: Joby Roblero Guidance Director(s): Dr Magdi Curiel Operation and Findings: large hiatal hernia. EBL less than 25 ml. Joby Roblero MD Aug 24, 2017 16:02
[2017-08-24] MEDS ORDERED: HYDROmorphone HCL PF 1 MG/ML VIAL IV PUSH PRN (16:15)
[2017-08-24] MEDS ORDERED: MAGNESIUM HYDROXIDE SUSP 30 ML CUP PO PRN (16:15)
[2017-08-24] MEDS ORDERED: ACETAMINOPHEN 1000 MG/100 ML 100 ML IV ONE (16:15)
[2017-08-24] MEDS ORDERED: ACETAMINOPHEN/HYDROcodone 325 MG/5 MG TAB PO PRN (16:15)
[2017-08-24] MEDS ORDERED: Post-op Orders (for Pharmacy) MISC XX ONE (16:15)
[2017-08-24] MEDS ORDERED: ONDANSETRON HCL 4 MG/2 ML VIAL IV PUSH PRN (16:15)
[2017-08-24] MEDS ORDERED: SODIUM CHLORIDE 0.9% FLUSH 10 ML FLUSH IV FLUSH PRN (16:15)
--- NOTE | 2017-08-24 16:58 | MP ---
cc: TEODORA NASH M.D. DATE OF SURGERY: 08/24/2017 PREOPERATIVE DIAGNOSIS: Symptomatic paraesophageal hernia dysphasia and cough. POSTOPERATIVE DIAGNOSES Symptomatic paraesophageal hernia dysphasia and cough. PROCEDURE: Laparoscopic repair hiatal hernia with [place] bio A mesh and partial fundoplication. SURGEON Dr. Teodora Nash MEDICAL INFORMATION SPECIALIST: Dr. Magdi Curiel ANESTHESIA General INDICATIONS This is a pleasant 76-year-old woman who has had progressive increase in symptoms associated with the paraesophageal hernia. She had undergone preoperative clearance by her crankshaft straightener, Dr. Garrett Urbina and her senior stereo compiler team lead Dr. Gavino Curiel. She had undergone preoperative upper endoscopy as well as barium swallow which demonstrated the findings of paraesophageal hernia. INTRAOPERATIVE FINDINGS Large hiatal hernia defect with upper one-quarter of stomach and chest. Upper abdominal adhesions associated with right upper quadrant paramedian incision. Primary approximation of the diaphragmatic crura reinforcement with a [place] bio A mesh. Partial fundoplication performed around the 36-Setswana bougie. ESTIMATED BLOOD LOSS: Estimated blood loss less than 25 Ml. DESCRIPTION OF PROCEDURE IN DETAIL The patient identified as Keri Lugo, taken to the operating room and placed in the supine position. Sequential compression devices were placed on bilateral lower extremities. Following induction of adequate general endotracheal anesthesia the patient's abdomen was prepped and draped in usual sterile fashion with Betadine. A Time-out procedure was performed. Following completion of time-out procedure everyone's satisfaction within the room, local anesthetic was placed in the midline about 6 cm above the umbilicus. A 2-3 cm vertical incision was carried out with scalpel dissection posterior level of midline fascia. This was incised with scalpel and entry the peritoneal cavity sill to a surgeon's finger. Finger separation of adhesions of omentum to the peritoneum. The right upper quadrant was performed. The applied medical balloon Katz trocars placed in the peritoneal cavity its balloon inflated to insufflation to level of 15 mmHg ensued. A left upper quadrant 5 mm trocars placed in the peritoneal cavity under direct laparoscopic view after incision skin with scalpel. Adhesiolysis in the right upper quadrant was completed with a harmonic scalpel. Three additional upper abdominal 5 mm trocars placed in peroneal cavity under direct laparoscopic view after incision skin with scalpel. Bonnie Flex retractor was placed beneath the left lateral lobe liver held position with a robot arm. The skin of the abdomen was protected with a laparotomy pad beneath his trocar. Attention was turned first to identification gastrohepatic ligament division of such with the harmonic scalpel. Lap for identification. The right diaphragmatic crura. Hernia sac was then from stria tissues in the mediastinum circumferentially starting the right side across the anteriorly just beyond 12 o'clock position. Attention was then turned to taking down the short gastric vessels along the greater curvature of the stomach allowing for identification left side diaphragmatic crura. The hernia sac was then able be mobilized from the beyond the 12 o'clock position down to about 5 o'clock position, removing the sac from the mediastinum and excising the sac in its entirety using the harmonic scalpel. Sac was tucked beneath the bonnie flex retractor and ultimately removed through the camera port incision site and discarded. This allowed identification of the gastroesophageal junction and a bonnie flex almanza's hook retractor was placed through the posterior window retracting it anteriorly. Additional attachments of the peritoneum to the diaphragmatic crura posteriorly were a separate using the harmonic scalpel. A the fundus of the stomach was then brought through the posterior window and held position without tension. The 36-Setswana esophageal bougie was then placed into the stomach under direct laparoscopic view. There was no injury to the stomach or esophagus. The posterior diaphragmatic crura were then approximated with three interrupted 0 Ethilon sutures using the suture assistant business manager device. There was not excessive tension and there was good apposition of the diaphragmatic crura. A [place] bio A U-shaped mesh was then saturated in saline and customized and shaped and placed into the peritoneal cavity. It was placed around the GE junction onto the repaired crura of the diaphragm in a reverse the C-shape. Using 0 Ethilon suture and suture assistant business manager device was tacked in position. The 6 o'clock position as well as 10 o'clock position. An additional suture was placed at the 2 o'clock position with the fundus of the stomach. A partial fundoplication was then performed placing two sutures on the fundal wrap on the right side to the diaphragmatic crura and [place] bio A mesh. Two sutures were placed partial thickness to esophagus to the full-thickness stomach on the right side. Two additional sutures were placed full-thickness stomach to partial-thickness esophagus on the left side, leaving the anterior wall of the esophagus open. This completed a partial fundoplication. Photographs were taken of completed repairs at each stage process. Four mL of Tisseel was then fibrin sealant was then placed it to allow for additional adherence of the [place] bio A mesh to the undersurface of the diaphragm muscle. After assuring all of the hiatal hernia sac was removed from peritoneal cavity bonnie flex liver retractor was removed. Ports were removed under direct visualization was no loss of bleeding from port sites. The abdomen was actively desufflated through the balloon Miroslava trocar which was then removed. This fascial incision above the umbilicus was closed with multiple interrupted 0 Vicryl sutures. Port site skin incisions were approximated 4-0 Monocryl subcuticular sutures. Dressings were applied, Mastisol inch brown Steri-Strips. The patient tolerated procedure without apparent complication. Sponge, needle and instrument counts were correct at the end of the case. MD OMAR Sullivan/yanique /3:56 PM /4:41 PM
[2017-08-24] MEDS ORDERED: *morphine SULFATE 8 MG/ML PERIprocedure ONLY ONE (18:05)
[2017-08-24 20:00] VITALS: BP 110/55; PULSE 84; RESP 16; TEMP 96.6; O2SAT 95
[2017-08-24] MEDS: SODIUM CHLORIDE 0.9% FLUSH 10 ML FLUSH IV FLUSH SCH (20:29)
[2017-08-24] MEDS: CALCIUM CARBONATE 500 MG CHEWABLE TAB CHEW SCH (20:29)
[2017-08-24] MEDS: ACETAMINOPHEN/HYDROcodone 325 MG/5 MG TAB PO PRN (20:29)
[2017-08-25 00:30] VITALS: BP 114/56; PULSE 86; RESP 16; TEMP 97.3; O2SAT 94
[2017-08-25] MEDS: ACETAMINOPHEN/HYDROcodone 325 MG/5 MG TAB PO PRN ×5 (01:07→22:15)
[2017-08-25] MEDS: SODIUM CHLORIDE 0.9% FLUSH 10 ML FLUSH IV FLUSH SCH ×2 (07:22→22:50)
[2017-08-25 08:00] VITALS: BP 93/52; PULSE 74; RESP 17; TEMP 97; O2SAT 93
[2017-08-25] MEDS: SPIRONOLACTONE 50 MG TAB PO SCH (08:04)
[2017-08-25] MEDS: DIGOXIN 0.125 MG TAB PO SCH (08:05)
[2017-08-25] MEDS: CYANOCOBALAMIN 1,000 MCG TAB PO SCH (08:05)
[2017-08-25] MEDS: PRAVASTATIN SOD 40 MG TAB PO SCH (08:05)
[2017-08-25] MEDS: CALCIUM CARBONATE 500 MG CHEWABLE TAB CHEW SCH ×2 (08:05→22:50)
[2017-08-25 12:00] VITALS: BP 115/54; PULSE 80; RESP 17; TEMP 95.4; O2SAT 95
[2017-08-25] MEDS: ENOXAPARIN SODIUM 30 MG/0.3 ML SYRINGE SQ SCH (13:11)
[2017-08-25 14:07] VITALS: O2SAT 92
[2017-08-25 16:00] VITALS: BP 91/54; PULSE 67; RESP 17; TEMP 95.9; O2SAT 98
--- NOTE | 2017-08-25 16:13 | HHI.PR ---
Subjective Subjective Notes Patient examined around 1000 today: Sitting up in the chair; doing well; had Champagne inserted last night due to urinary retention; no abdominal pain Patient again seen around 1600 today-- now in severe LEFT shoulder down to buttocks pain; was able to ambulate in hallways earlier; tolerate full liquid lunch with no problems Objective Vitals/I&O Vital Signs Date Time Temp Pulse Resp B/P (MAP) Pulse Ox O2 Delivery O2 Flow Rate FiO2 08/25/17 14:07 92 Nasal Cannula 3.00 08/25/17 12:00 95.4 80 17 115/54 (74) Cardiovascular: Regular Lungs: Clear Abdomen: Other (lap sites c/d/i; mildly distended ) Extremities: No edema A/P Assessment and Plan 76 year old female POD1 lap repair of hiatal hernia with [place] bio A mesh and partial fundoplication -Full liquids -Pain control -OOB and tolerated -CXR -Try Flexeril/heating pad for muscular pain -Check set of labs -If uneventful night will plan for DC home tomorrow Attending Statement The exam, history, and the medical decision-making described in the above note were completed with the assistance of the mid-level provider. I reviewed and agree with the findings presented. I attest that I had a [id number] encounter with the patient on the same day, and personally performed and documented my assessment and findings in the medical record. Zhanna Green Aug 25, 2017 16:13 Joby Roblero MD Aug 27, 2017 16:06
[2017-08-25] MEDS ORDERED: PILL SPLITTER OTHER PRN (17:15)
--- NOTE | 2017-08-25 19:53 | RADRPT ---
EXAM DATE/TIME: 08/25/2017 18:55 [facility] COMPARISON: CHEST SINGLE AP, May 11, 2017, 7:58. CHEST SINGLE AP, July 24, 2017, 17:21. INDICATIONS : Shortness of breath. MEDICAL HISTORY : Hypertension. SURGICAL HISTORY : None. ENCOUNTER: Initial ACUITY: 1 day PAIN SCORE: 0/10 LOCATION: chest FINDINGS: A single AP semierect view of the chest was obtained and again demonstrates mild to moderate cardiome mary jane. There is mild prominence in the right infrahilar region on the current study. The lungs are oth erwise clear. The bony thorax is intact and there is no effusion. CONCLUSION: 1. New mild prominence in the right infrahilar region which could indicate infiltrate 2. Mild to moderate cardiomegaly. Jean Carlos Quigley MD on August 25, 2017 at 19:50 Board Certified Radiologist. This report was verified electronically.
[2017-08-25 20:39] LABS: BASOPHIL # 0.1 TH/MM3 (0-0.2); BASOPHIL % 0.7 % (0.0-2.0); EOSINOPHIL # 0.1 TH/MM3 (0-0.4); EOSINOPHIL % 0.5 % (0.0-4.0); HEMATOCRIT 31.3 % (35.0-46.0); LYMPH % 10.1 % (9.0-44.0); LYMPHOCYTE # 1.1 TH/MM3 (1.0-4.8); MEAN CELL VOLUME 89.8 FL (80.0-100.0); MEAN CORPUSCULAR HEMOGLOBIN 29.4 PG (27.0-34.0); MEAN CORPUSCULAR HGB CONC 32.8 % (32.0-36.0); MONO % 6.3 % (0.0-8.0); NEUT % 82.4 % (16.0-70.0); PLATELET COUNT 246 TH/MM3 (150-450); RED BLOOD COUNT 3.49 MIL/MM3 (4.00-5.30); WHITE BLOOD COUNT 10.9 TH/MM3 (4.0-11.0)
[2017-08-25 20:43] LABS: HEMO FLAGS AUTO DIFF
[2017-08-25 20:55] VITALS: BP 108/58; PULSE 65; RESP 18; TEMP 97.4; O2SAT 92
[2017-08-25 21:11] LABS: BICARBONATE 26.3 MEQ/L (21.0-32.0); POTASSIUM 4.5 MEQ/L (3.5-5.1)
[2017-08-25 21:28] LABS: PLATELET ESTIMATE SMEAR NORMAL (NORMAL); PLATELET MORPHOLOGY NORMAL (NORMAL); SCAN/DIFF AUTO DIFF CONFIRMED
[2017-08-25] MEDS: CYCLOBENZAPRINE HCL 10 MG TAB PO PRN (22:49)
[2017-08-26] VITALS: BP 108/64; PULSE 66; RESP 18; TEMP 98; O2SAT 98
[2017-08-26 04:00] VITALS: BP 104/54; PULSE 70; RESP 20; TEMP 97; O2SAT 92
[2017-08-26] MEDS: ACETAMINOPHEN/HYDROcodone 325 MG/5 MG TAB PO PRN ×2 (04:36→08:00)
[2017-08-26] MEDS ORDERED: CYCL5TAB PO (07:29)
[2017-08-26] MEDS ORDERED: HYDR-3533 PO (07:29)
[2017-08-26 07:35] VITALS: BP 109/55; PULSE 70; RESP 20; TEMP 96.6; O2SAT 92
--- NOTE | 2017-08-26 07:38 | HHI.PR ---
Subjective Subjective Notes doing better this morning. L chest pain improved after flexeril, k thermia pad. swallowing without difficulty, had two servings of mashed potato last night. No reflux symptoms. Voided on own. Objective Vitals/I&O Vital Signs Date Time Temp Pulse Resp B/P (MAP) Pulse Ox O2 Delivery O2 Flow Rate FiO2 08/26/17 04:00 97.0 70 20 104/54 (71) 92 08/25/17 14:07 Nasal Cannula 3.00 Labs Laboratory Tests Test 08/25/17 20:25 White Blood Count 10.9 Red Blood Count 3.49 Hemoglobin 10.3 Hematocrit 31.3 Mean Corpuscular Volume 89.8 Mean Corpuscular Hemoglobin 29.4 Mean Corpuscular Hemoglobin Concent 32.8 Red Cell Distribution Width 16.0 Platelet Count 246 Mean Platelet Volume 8.3 Neutrophils (%) (Auto) 82.4 Lymphocytes (%) (Auto) 10.1 Monocytes (%) (Auto) 6.3 Eosinophils (%) (Auto) 0.5 Basophils (%) (Auto) 0.7 Neutrophils # (Auto) 9.0 Lymphocytes # (Auto) 1.1 Monocytes # (Auto) 0.7 Eosinophils # (Auto) 0.1 Basophils # (Auto) 0.1 CBC Comment AUTO DIFF Differential Comment AUTO DIFF CONFIRMED Platelet Estimate NORMAL Platelet Morphology Comment NORMAL Blood Urea Nitrogen 15 Creatinine 0.87 Random Glucose 130 Calcium Level 8.4 Sodium Level 132 Potassium Level 4.5 Chloride Level 98 Carbon Dioxide Level 26.3 Anion Gap 8 Estimat Glomerular Filtration Rate 63 Cardiovascular: Regular Lungs: Clear Abdomen: Other (mildly distended, softer. incisions all healing well. Few BSs. No erythema. No rebound or guarding.) Extremities: No edema, Perfused A/P Assessment and Plan Postop lap repair HH with bio a mesh, partial fundoplication. postop muscular chest pain L side. Improved with flexeril, heating pad. Urinary retention resolved. potential DC later today, scrips for lortab and flexeril on chart. D/W pt and Daughter at bedside. Joby Roblero MD Aug 26, 2017 07:38
[2017-08-26] MEDS: SPIRONOLACTONE 50 MG TAB PO SCH (08:00)
[2017-08-26] MEDS: PRAVASTATIN SOD 40 MG TAB PO SCH (08:00)
[2017-08-26] MEDS: CALCIUM CARBONATE 500 MG CHEWABLE TAB CHEW SCH (08:00)
[2017-08-26] MEDS: DIGOXIN 0.125 MG TAB PO SCH (08:00)
[2017-08-26] MEDS: CYANOCOBALAMIN 1,000 MCG TAB PO SCH (08:01)
[2017-08-26] MEDS: SODIUM CHLORIDE 0.9% FLUSH 10 ML FLUSH IV FLUSH SCH (08:03)
[2017-08-26 11:45] VITALS: BP 99/55; PULSE 63; RESP 18; TEMP 96.2; O2SAT 92
[2017-08-26] MEDS: ENOXAPARIN SODIUM 30 MG/0.3 ML SYRINGE SQ SCH (15:00)
--- NOTE | 2017-08-26 15:27 | HHI.DS ---
Discharge Summary Admission Date Aug 24, 2017 at 11:14 Discharge Date: Aug 26, 2017 Admitting Diagnosis Brief History 76 year old female s/p lap repair of hiatal hernia with [place] bio A mesh and partial fundoplication CBC/BMP: 08/25/17202408/25/172024 Significant Findings Laboratory Tests Test 08/24/17 12:05 08/25/17 20:25 08/26/17 08:45 Red Blood Count 3.50 MIL/MM3 (4.00-5.30) 3.49 MIL/MM3 (4.00-5.30) Hemoglobin 10.6 GM/DL (11.6-15.3) 10.3 GM/DL (11.6-15.3) Hematocrit 30.8 % (35.0-46.0) 31.3 % (35.0-46.0) Neutrophils (%) (Auto) 82.4 % (16.0-70.0) Neutrophils # (Auto) 9.0 TH/MM3 (1.8-7.7) Random Glucose 130 MG/DL (74-106) Calcium Level 8.4 MG/DL (8.5-10.1) Sodium Level 132 MEQ/L (136-145) Estimat Glomerular Filtration Rate 63 ML/MIN (>89) PE at Discharge Up to chair cardio: RRR Resp: CTAB Abd: lap sites c/d/i; abdomen soft Hospital Course This is a 76 year old female POD2 lap repair of hiatal hernia with [place] bio A mesh and partial fundoplication. The patient was able to tolerate a full liquid diet. She had no incisional type pain but she did have some severe muscular pain. This was controlled with Flexeril and a heating pad. The patient will follow up next week with Dr. Roblero. Pt Condition on Discharge: Good Discharge Disposition: Discharge Home Discharge Instructions DIET: Follow Instructions for: Full Liquid Diet Additional Diet Instructions: up to mashed potato consistency Activities you can perform: Regular-No Restrictions Other Activity Instructions: Okay to shower; pat incisions dry Use heating pad as needed for LEFT shoulder/side pain Zhanna Green Aug 26, 2017 15:27
[2017-08-26] MEDS: CYCLOBENZAPRINE HCL 10 MG TAB PO PRN (16:17)
== END 2017-08-26 16:22 | disposition home or self-care (01) | DRG 328 ==
LOC: HSDI 08-24 11:14 → N07A 08-24 18:35
PROVIDERS: ADMIT Surgery Trauma Surgery; ATTEND Surgery Trauma Surgery
PROC: 0DV44ZZ Restriction of Esophagogastric Junction, Percutaneous Endoscopic Approach (ICD-10-PCS; principal; 2017-08-24 13:30)
PROC: 0BUT4JZ Supplement Diaphragm with Synthetic Substitute, Percutaneous Endoscopic Approach (ICD-10-PCS; 2017-08-24 13:30)
PROC: 0T9B70Z Drainage of Bladder with Drainage Device, Via Natural or Artificial Opening (ICD-10-PCS; 2017-08-25)
DX: K44.9 Diaphragmatic hernia without obstruction or gangrene (principal); R13.10 Dysphagia, unspecified; R33.9 Retention of urine, unspecified; R07.89 Other chest pain
CPT/HCPCS: 71010; 80048; 83735; 85025; 94150; J0690; J1170; J1650; J2270; J7120

== ENCOUNTER 2017-07-24 16:45 | Observation (INO) | payer MEDICARE, BC ==
[~2017-07-24] VITALS: Ht 152.4 cm; Wt 90.0 kg
[~2017-07-24 16:45] MED LIST changes: +APIX2.5T PO; +FERR200T PO; +FURO20TA PO; +HYDR25TA5 PO
[2017-07-24 16:49] VITALS: BP 140/66; PULSE 84; RESP 15; TEMP 98.4; O2SAT 100
--- NOTE | 2017-07-24 16:55 | PD ---
Physical Exam Date Seen by Provider: Jul 24, 2017 Time Seen by Provider: 16:52 Data Data Last Documented VS Vital Signs Date Time Temp Pulse Resp B/P (MAP) Pulse Ox O2 Delivery O2 Flow Rate FiO2 07/24/17 16:49 98.4 84 15 140/66 (90) 100 MDM Supervised Visit with DILEEP: No Narrative Course 76-year-old female presents to the ED for evaluation of edema and pain in the bilateral lower extremities. Patient states than present for 2 weeks, worsened today. Endorses shortness of breath, coughing spells. Patient states that she was seen by the gre instructor and told that she does NOT have CHF. Vitals reviewed. Patient seen in triage, awaiting priority bed placement. Terra Gil Jul 24, 2017 16:55
--- NOTE | 2017-07-24 17:41 | RADRPT ---
EXAM DATE/TIME: 07/24/2017 17:21 [facility] COMPARISON: CHEST SINGLE AP, May 11, 2017, 7:58. INDICATIONS : Chest pain, shortness of breath, and bilateral lower leg swelling. MEDICAL HISTORY : Hypertension. SURGICAL HISTORY : None. ENCOUNTER: Initial ACUITY: 3 days PAIN SCORE: 4/10 LOCATION: chest FINDINGS: A single view of the chest demonstrates the lungs to be symmetrically aerated without new focal pleur al or parenchymal opacities. The cardiomediastinal contours are unremarkable. Redemonstration of lar ge hilar hernia. Osseous structures are intact. CONCLUSION: 1. Large hiatal hernia. 2. No acute abnormality or significant interval change. Lee Snyder MD on July 24, 2017 at 17:39 Board Certified Radiologist. This report was verified electronically.
[2017-07-24] MEDS ORDERED: FURO20TA PO (17:44)
--- NOTE | 2017-07-24 17:45 | PD ---
Physical Exam Date Seen by Provider: Jul 24, 2017 Narrative Patient presents with about a 2 week history of chest pain, shortness of breath and peripheral edema. Data Data Last Documented VS Vital Signs Date Time Temp Pulse Resp B/P (MAP) Pulse Ox O2 Delivery O2 Flow Rate FiO2 07/24/17 17:28 91 24 97 Room Air 07/24/17 16:49 98.4 140/66 (90) Orders Orders Electrocardiogram (07/24/17 16:55) Complete Blood Count With Diff (07/24/17 16:55) Basic Metabolic Panel (Bmp) (07/24/17 16:55) Ckmb (Isoenzyme) Profile (07/24/17 16:55) Troponin I (07/24/17 16:55) Chest, Single Ap (07/24/17 16:55) B-Type Natriuretic Peptide (07/24/17 16:55) Hepatic Functional Panel (07/24/17 17:23) Us Leg Venous Doppler Bilat (07/24/17 ) Ct Pulmonary Angiogram (07/24/17 ) Digoxin (07/24/17 17:44) MDM Supervised Visit with DILEEP: Yes Narrative Course I, Dr. Maradiaga, have reviewed the advance practice practitioner's documentation and am in agreement, met with the patient face to face, made the diagnosis, and the medical decision making was done by me. *My assessment and Findings: The patient looks comfortable and is having no respiratory distress. See Wilfredo Encarnacion note for lab and radiology results, final diagnosis and disposition Tiera Maradiaga MD Jul 24, 2017 17:45
[2017-07-24 18:14] LABS: AUTOMATED NEUTROPHIL # 8.2 TH/MM3 (1.8-7.7); BASOPHIL # 0.1 TH/MM3 (0-0.2); BASOPHIL % 0.5 % (0.0-2.0); EOSINOPHIL # 0.2 TH/MM3 (0-0.4); EOSINOPHIL % 1.6 % (0.0-4.0); HEMATOCRIT 32.4 % (35.0-46.0); HEMO FLAGS DIFF FINAL; MEAN CELL VOLUME 87.9 FL (80.0-100.0); MEAN CORPUSCULAR HEMOGLOBIN 30.2 PG (27.0-34.0); MEAN CORPUSCULAR HGB CONC 34.4 % (32.0-36.0); NEUT % 81.9 % (16.0-70.0); PLATELET COUNT 222 TH/MM3 (150-450); RED BLOOD COUNT 3.69 MIL/MM3 (4.00-5.30); RED CELL DISTRIBUTION WIDTH 14.7 % (11.6-17.2)
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
[2017-07-24 18:44] LABS: ANION GAP 12 MEQ/L (5-15); AST (GOT) 22 U/L (15-37); BICARBONATE 33.2 MEQ/L (21.0-32.0); BLOOD UREA NITROGEN 10 MG/DL (7-18); CHLORIDE 88 MEQ/L (98-107); GLOMERULAR FILTRATION RATE 64 ML/MIN (>89); SODIUM (NA) 133 MEQ/L (136-145)
[2017-07-24 18:52] LABS: POTASSIUM 2.7 MEQ/L (3.5-5.1)
[2017-07-24] MEDS ORDERED: POTASSIUM CHLORIDE 20 MEQ CONTROLLED RELEASE TAB PO ONE ×2 (19:00→21:15)
[2017-07-24 19:01] LABS: ALKALINE PHOSPHATASE 88 U/L (45-117); ALT (GPT) 21 U/L (10-53); CREATINE KINASE 164 U/L (26-192); DIGOXIN 0.9 NG/ML (0.8-2.0); INDIRECT BILIRUBIN 0.6 MG/DL (0.0-0.8); TOTAL BILIRUBIN ADULT 0.8 MG/DL (0.2-1.0)
[2017-07-24 19:21] LABS: CKMB 2.4 NG/ML (0.5-3.6)
--- NOTE | 2017-07-24 19:26 | RADRPT ---
EXAM DATE/TIME: 07/24/2017 18:20 [facility] COMPARISON: US LEG BILATERAL VENOUS DOPPLER, May 12, 2017, 10:22. INDICATIONS : Bilateral leg edema. MEDICAL HISTORY : Hypercholesterolemia. Hypertension. A-fib. Pneumonia. Hiatal hernia. Anemia. SURGICAL HISTORY : Cholecystectomy. Bladder sling. Back surgery. Rotator cuff repair. ENCOUNTER: Subsequent ACUITY: 4 - 6 days PAIN SCORE: 8/10 LOCATION: Bilateral legs. TECHNIQUE: Venous ultrasound of the left and right leg was performed from the inguinal ligament to the proximal calf. Real-time, color Doppler and spectral tracing, compression and augmentation techniques were us ed. FINDINGS: RIGHT LEG: Prominent soft tissue swelling. There is intact flow was seen from the popliteal to inguinal region. However, the mid and distal femoral vein is incompletely compressible and no augmentation of flow c an be demonstrated from the mid thigh the popliteal region. LEFT LEG: Prominent at soft tissue swelling. There is intact flow from the popliteal to the region. However, the mid and distal femoral vein is incompletely compressible and no augmentation of flow can be demon strated in the mid and distal thigh. CONCLUSION: Abnormal examination of both lower extremities with inability to produce augmentation from distal com pression and poor compressibility in the mid-thighs bilaterally. Therefore, the study is positive fo r deep venous thrombosis even though no echogenic thrombus is identified. Jerzy Baltazar MD on July 24, 2017 at 19:15 Board Certified Radiologist. This report was verified electronically.
[2017-07-24] MEDS ORDERED: IOHEXOL 350 MG/ML 10 ML VIAL (for RAD DIAG) IVCONTRAST ONE (19:27)
[2017-07-24] MEDS: NS + KCL 20 MEQ INJ 1,000 ML IV SCH (19:40)
--- NOTE | 2017-07-24 20:00 | RADRPT ---
EXAM DATE/TIME: 07/24/2017 19:14 [facility] COMPARISON: CT PULMONARY ANGIOGRAM, December 31, 2014, 15:50. INDICATIONS : Shortness of breath and bilateral leg swelling. IV CONTRAST: 55 cc Omnipaque 350 (iohexol) IV RADIATION DOSE: 15.53 CTDIvol (mGy) MEDICAL HISTORY : Hypertension. Cardiovascular disease A-fib. Pneumonia. Hiatal hernia. Anemia SURGICAL HISTORY : None. ENCOUNTER: Initial ACUITY: 2 days PAIN SCALE: 0/10 LOCATION: chest TECHNIQUE: Volumetric scanning of the chest was performed using a pulmonary embolism protocol MIP images were re constructed. Using automated exposure control and adjustment of the mA and/or kV according to patien t size, radiation dose was kept as low as reasonably achievable to obtain optimal diagnostic quality images. DICOM format image data is available electronically for review and comparison. Follow-up recommendations for detected pulmonary nodules are based at a minimum on nodule size and pa tient risk factors according to Fleischner Society Guidelines. FINDINGS: PULMONARY ARTERIES: No filling defects are seen in the pulmonary arteries through the segmental level. LUNGS: Minimal linear scarring in the medial left lower lung. No focal infiltrates or nodules. PLEURAE: There is no pleural thickening or pleural effusion. MEDIASTINUM: Enlarged azygos node measuring 2 cm, stable from prior CT 2014. MISCELLANEOUS: Large hiatus hernia similar to prior. CONCLUSION: The study is negative for pulmonary embolism. Jerzy Baltazar MD on July 24, 2017 at 19:38 Board Certified Radiologist. This report was verified electronically.
--- NOTE | 2017-07-24 20:35 | PD ---
Data Data Last Documented VS Vital Signs Date Time Temp Pulse Resp B/P (MAP) Pulse Ox O2 Delivery O2 Flow Rate FiO2 07/24/17 19:45 96 Room Air 07/24/17 17:28 91 24 07/24/17 16:49 98.4 140/66 (90) Orders Orders Electrocardiogram (07/24/17 16:55) Complete Blood Count With Diff (07/24/17 16:55) Basic Metabolic Panel (Bmp) (07/24/17 16:55) Ckmb (Isoenzyme) Profile (07/24/17 16:55) Troponin I (07/24/17 16:55) Chest, Single Ap (07/24/17 16:55) Us Leg Venous Doppler Bilat (07/24/17 ) Ct Pulmonary Angiogram (07/24/17 ) B-Type Natriuretic Peptide (07/24/17 17:57) Digoxin (07/24/17 16:55) Hepatic Functional Panel (07/24/17 16:55) Potassium Chloride (Kcl) (07/24/17 19:00) Ns + Kcl 20 Meq Inj (Ns + Kcl 20 Meq Inj (07/24/17 19:00) CKMB (07/24/17 17:50) CKMB% (07/24/17 17:50) Iohexol 350 Inj (Omnipaque 350 Inj) (07/24/17 19:27) Admit Order (Ed Use Only) (07/24/17 ) Labs Laboratory Tests Test 07/24/17 17:50 White Blood Count 10.0 TH/MM3 Red Blood Count 3.69 MIL/MM3 Hemoglobin 11.2 GM/DL Hematocrit 32.4 % Mean Corpuscular Volume 87.9 FL Mean Corpuscular Hemoglobin 30.2 PG Mean Corpuscular Hemoglobin Concent 34.4 % Red Cell Distribution Width 14.7 % Platelet Count 222 TH/MM3 Mean Platelet Volume 8.3 FL Neutrophils (%) (Auto) 81.9 % Lymphocytes (%) (Auto) 10.0 % Monocytes (%) (Auto) 6.0 % Eosinophils (%) (Auto) 1.6 % Basophils (%) (Auto) 0.5 % Neutrophils # (Auto) 8.2 TH/MM3 Lymphocytes # (Auto) 1.0 TH/MM3 Monocytes # (Auto) 0.6 TH/MM3 Eosinophils # (Auto) 0.2 TH/MM3 Basophils # (Auto) 0.1 TH/MM3 CBC Comment DIFF FINAL Differential Comment Blood Urea Nitrogen 10 MG/DL Creatinine 0.86 MG/DL Random Glucose 117 MG/DL Total Protein 7.1 GM/DL Albumin 3.3 GM/DL Calcium Level 9.0 MG/DL Alkaline Phosphatase 88 U/L Aspartate Amino Transf (AST/SGOT) 22 U/L Alanine Aminotransferase (ALT/SGPT) 21 U/L Total Bilirubin 0.8 MG/DL Direct Bilirubin 0.2 MG/DL Sodium Level 133 MEQ/L Potassium Level 2.7 MEQ/L Chloride Level 88 MEQ/L Carbon Dioxide Level 33.2 MEQ/L Anion Gap 12 MEQ/L Estimat Glomerular Filtration Rate 64 ML/MIN Indirect Bilirubin 0.6 MG/DL Total Creatine Kinase 164 U/L Creatine Kinase MB 2.4 NG/ML Troponin I LESS THAN 0.02 NG/ML B-Type Natriuretic Peptide 20 PG/ML Digoxin Level 0.9 NG/ML MDM Supervised Visit with DILEEP: Yes Narrative Course This 76-year-old woman with weakness, lower extremity edema with erythema redness swelling and pain bilaterally, equivocal ultrasound, already on anticoagulation, with weakness probably attributable hypokalemia. She is on diuretics. We'll plan observation for IV antibiotics, diuretic, potassium replacement. We'll continue her anticoagulation. I doubt that she has bilateral DVTs. I spoke with Dr. Morel who will admit the patient. Diagnosis Primary Impression: Lower extremity edema Additional Impression: Hypokalemia Admitting Information Admitting Physician Requests: Observation Obinna Rachel MD Jul 24, 2017 20:35
[2017-07-24] MEDS ORDERED: NALOXONE HCL 0.4 MG/ML AMP IV PUSH PRN (22:00)
[2017-07-24] MEDS ORDERED: MAGNESIUM HYDROXIDE SUSP 30 ML CUP PO PRN (22:00)
[2017-07-24] MEDS ORDERED: ONDANSETRON HCL 4 MG/2 ML VIAL IVP PRN (22:00)
[2017-07-24] MEDS ORDERED: SENNOSIDES 8.6 MG TAB PO PRN (22:00)
[2017-07-24] MEDS ORDERED: LACTULOSE SYRUP 20 GM/30 ML CUP PO PRN (22:00)
[2017-07-24] MEDS ORDERED: SODIUM CHLORIDE 0.9% FLUSH 10 ML FLUSH IV FLUSH PRN (22:00)
[2017-07-24] MEDS ORDERED: BISACODYL 10 MG SUPP RECTAL PRN (22:00)
[2017-07-24] MEDS ORDERED: ACETAMINOPHEN 325 MG TAB PO ONE (23:00)
[2017-07-24] MEDS: APIXABAN 2.5 MG TABLET PO SCH (23:59)
[2017-07-25] VITALS (11 sets, daily range): BP systolic 109–154; BP diastolic 53–68; PULSE 66–81; RESP 16–20; TEMP 97.7–98.7; O2SAT 92–98
--- NOTE | 2017-07-25 01:17 | EKG ---
Date Performed: 07/24/2017 Time Performed: 17:05:32 PTAGE: 76 years EKG: Sinus rhythm WITH OCCASIONAL SUPRAVENTRICULAR PREMATURE COMPLEXES LOW QRS VOLTAGE IN PRECORDIAL LEADS NONSPECIFIC ST & T-WAVE ABNORMALITY BORDERLINE ECG PREVIOUS TRACING : 05/11/2017 07.16 No significant change from previous tracing noted. DOCTOR: Larry Sinha Interpretating Date/Time 07/25/2017 01:16:05
[2017-07-25] MEDS ORDERED: APIXABAN 2.5 MG TABLET PO SCH (09:00)
[2017-07-25] MEDS: DOCUSATE SODIUM 50 MG/SENNA 8.6 MG TAB PO SCH ×3 (09:00→20:37)
[2017-07-25] MEDS: SODIUM CHLORIDE 0.9% FLUSH 10 ML FLUSH IV FLUSH SCH ×2 (09:00→20:37)
[2017-07-25] MEDS: PRAVASTATIN SOD 40 MG TAB PO SCH (09:55)
[2017-07-25] MEDS: POTASSIUM CHLORIDE 20 MEQ CONTROLLED RELEASE TAB PO SCH ×2 (09:56→20:37)
[2017-07-25] MEDS: ACETAMINOPHEN 325 MG TAB PO PRN (09:57)
[2017-07-25] MEDS: FUROSEMIDE 40 MG/4 ML VIAL IV PUSH SCH ×2 (09:59→18:57)
[2017-07-25] MEDS: APIXABAN 2.5 MG TABLET PO SCH (09:59)
[2017-07-25 12:25] LABS: HEMATOCRIT 30.4 % (35.0-46.0); MEAN CELL VOLUME 88.7 FL (80.0-100.0); MEAN CORPUSCULAR HEMOGLOBIN 29.4 PG (27.0-34.0); MEAN CORPUSCULAR HGB CONC 33.1 % (32.0-36.0); PLATELET COUNT 203 TH/MM3 (150-450); RED BLOOD COUNT 3.43 MIL/MM3 (4.00-5.30); REVIEW FLAG FINAL; WHITE BLOOD COUNT 6.5 TH/MM3 (4.0-11.0)
[2017-07-25 12:51] LABS: BICARBONATE 32.3 MEQ/L (21.0-32.0)
--- NOTE | 2017-07-25 13:55 | RADRPT ---
EXAM DATE/TIME: 07/25/2017 12:53 [facility] COMPARISON: No previous studies available for comparison. INDICATIONS : Bilateral leg swelling. MEDICAL HISTORY : Hypertension. Hypercholesterolemia. A-fib. Pneumonia. Hiatal hernia. Anemia. SURGICAL HISTORY : Cholecystectomy. Bladder sling. Back surgery. Rotator cuff repair. ENCOUNTER: Subsequent ACUITY: 1 day PAIN SCORE: 4/10 LOCATION: Bilateral legs. TECHNIQUE: Venous ultrasound of the left and right leg was performed from the inguinal ligament to the proximal calf. Real-time, color Doppler and spectral tracing, compression and augmentation techniques were us ed. FINDINGS: Ultrasound of both lower extremities was again performed. Again due to pain the upper thighs bilater ally are difficult to compress. There does appear to be some residual thrombus in the superficial fe moral vein on the left. The popliteal veins are unremarkable. The calf veins are unremarkable. CONCLUSION: Similar examination due to the previous study. Questionable residual thrombus in both superficial fe moral veins unchanged from the previous study. Obinna Cisneros MD on July 25, 2017 at 13:34 Board Certified Radiologist. This report was verified electronically.
[2017-07-25] MEDS: CEPHALEXIN MONOHYDRATE 500 MG CAP PO SCH ×2 (14:12→20:37)
[2017-07-25] MEDS ORDERED: VANCOMYCIN INJ 900 MG in SODIUM CHLOR 0.9% 250 ML INJ 250 ML IV ONE (15:00)
--- NOTE | 2017-07-25 15:05 | MH ---
cc: CHAD JOHANSENWILY DATE OF ADMISSION: 07/24/2017 PRIMARY CARE PHYSICIAN: Dr. Sherine Sandoval CHIEF COMPLAINT The patient came to the ER complaining of progressive swelling in the leg followed by pain and weakness. HISTORY OF PRESENT ILLNESS: This is a pleasant 76-year-old female with prior history of atrial fibrillation, large hiatal hernia, recurrent pancreatitis which is felt to be associated with Multaq and obesity. The patient had a problem with Multaq and apparently developed recurrent pancreatitis and this was thought to be caused by Multaq. This was stopped and she was switched to Digoxin. She reports that she has had swelling in her legs for about a couple months duration. The swelling started to get worse over three weeks ago and then developed redness about a week to ten days ago with increasing pain. She also reports weakness and dyspnea on exertion. She could hardly walk 50-60 feet without getting out of breath. She denies chest pain, dyspnea at rest, orthopnea or paroxysmal nocturnal dyspnea. Denies fever, chills or night sweats. The patient was recently seen by her milk bottler and apparently had an echo and stress test done last week and the results are not available to her at this time. Due to her progressive pain and leg redness, she decided to come to the hospital. Upon arrival, she was noted to be hemodynamically stable. Her digoxin level was noted to be acceptable at 0.90. Her potassium was found to be low at 2.7. She has cellulitic changes in her legs. The recommendation was given by the emergency room physician for the patient to be admitted to the hospital. PAST MEDICAL HISTORY: 1. Hypertension. 2. Hyperlipidemia. 3. Paroxysmal atrial fibrillation. 4. Large hiatal hernia. 5. Gastroesophageal reflux disease (GERD). 6. Obesity. 7. Arthritis. 8. History of recurrent pancreatitis. 9. History of asthma. PAST SURGICAL HISTORY: The past surgical history is significant for: 1. Cholecystectomy. 2. History of bladder repair with mesh. 3. Prior history of rectocele and cystocele. 4. Benign cyst excision from left and right breast in the past. SOCIAL HISTORY: The patient denies smoking, drinking or drug abuse. She is and lives in her house. She is a retired animal care service worker. ALLERGIES: NO KNOWN DRUG ALLERGIES. FAMILY HISTORY: Both her parents are . They both had coronary artery disease. The mother was 81 years old when she and the dad when he was 74. CURRENT MEDICATIONS: 1. She is taking Digoxin 0.125 milligrams p.o. daily. 2. Lasix is listed as 20 milligrams daily. 3. Hydrochlorothiazide 25 milligrams daily. 4. She reportedly was taking potassium 10 milliequivalents daily. This is not listed on her home medication list. 5. Eliquis 2.5 milligrams twice a day. 6. Simvastatin 20 milligrams daily. 7. Calcium carbonate twice a day. 8. Ferrous sulfate 200 milligrams daily. 9. Vitamin B12 daily. 10. She was recently prescribed Zantac 1 to 2 milligrams daily. REVIEW OF SYSTEMS: The patient denies headache, loss of vision, double vision. Denies change in hearing. No sore throat, dysphagia, odynophagia. Denies cough or sputum production. Denies fever, chills or night sweats. She denies chest pain, dyspnea, orthopnea, paroxysmal nocturnal dyspnea. She sleeps on one pillow. She denies change in bowel pattern. There is no history of melena or bright red blood per rectum. She reports early satiety that she reports is due to her large hiatal hernia. There is no recent change in her dietary habits. She denies history of dysuria or hematuria. Otherwise the review of systems is negative for twelve systems apart from that mentioned above. PHYSICAL EXAMINATION: GENERAL: This is an elderly obese female lying in bed not in any acute distress. She is awake and alert. She is oriented x3. VITAL SIGNS: Blood pressure 140/66, pulse of 84, respirations 18, temperature 98.5, o2 saturation 100%. HEAD, EYES, EARS, NOSE, THROAT: Normocephalic, atraumatic. Eye exam: Extraocular muscles are intact. Pupils round and reactive. No icterus or significant pallor noted. ENT - No throat congestion. No oral ulcers or thrush. Ears clear. NECK: The neck is supple. No jugular venous distention. No nodes. No bruits. CARDIOVASCULAR: S1 and S2 audible. Regular rhythm. No murmur or gallop appreciated. RESPIRATORY SYSTEM: Distant breath sounds. Lungs are clear to auscultation. No crackles, wheezes or rhonchi appreciated. GASTROINTESTINAL: Abdomen soft, protuberant, bulky and nontender. Positive bowel sounds. No hepatosplenomegaly. EXTREMITIES: She has bilateral edema of the mid-calf with redness and warmth. She is tender to touch. Homans sign appears to be negative. NEUROLOGIC: She is awake and alert. She is oriented x3. No facial asymmetry. She is moving all four extremities. EKGS: EKG shows sinus rhythm with occasional PVCs, Low voltage QRS in the precordial leads and nonspecific T-wave changes. LABORATORY DATA: Sodium 133, potassium 2.7, chloride 83, bicarbonate 32.2, BUN of 10, creatinine _, glucose of 170, calcium was 9.0. Liver function tests essentially unremarkable. CPK 164. MB 2.4. Troponin I less than 0.02. Total protein 7.1, albumin3.3. BNP was 20. WBCs 10.0, hemoglobin 11.2, hematocrit 32.4, platelet count of 222,000 with MCV of 87.9. Digoxin level of 0.9. IMAGING STUDIES: Venous Doppler of bilateral lower extremities was done and shows prominent soft tissue swelling bilateral lower extremities. Low echogenic clot was seen but there was inability to produce augmentation from distal compression and poor compressibility in the mid thigh bilaterally. This study is felt to be positive for DVT. CT of the chest was performed and the study is negative for PE and showed large hiatal hernia. Chest x-ray was done and shows large hiatal hernia. No acute infiltrate or effusion. ASSESSMENT: 1. Generalized weakness felt to be due to hypokalemia. 2. Increasing pedal edema with cellulitic changes. 3. Possible bilateral lower extremity deep venous thrombosis. 4. History of paroxysmal atrial fibrillation currently in sinus rhythm. 5. Hypertension. 6. Hyperlipidemia. 7. Large hiatal hernia. 8. Obesity. 9. History of recurrent pancreatitis. PLAN: 1. The patient is admitted for hospital observation. 2. Will replace potassium. 3. Will put her on IV Lasix to reduce the pedal edema. 4. Will control blood pressure. 5. Will consult milk bottler, Dr. Urbina. 6. Continue her on Digoxin. 7. Will recommend increasing the dose of Eliquis from 2.5 to 5 milligrams twice a day. 8. Will consider re-imaging bilateral lower extremity venous Doppler to verify the findings of the first venous Doppler. 9. Resume home medications. 10. Continue Zantac for GI protection. 11. The patient is already on Eliquis and she does not need any additional DVT prophylaxis and is also concerned about possible existing DVTs. 12. I called and spoke with the patient's niece per the patient's request, who is a nurse practitioner at phone number [phone], and I discussed the findings with her in detail and answered all of her questions. Further management of this patient will be dependent on the hospital course. MD CARRILLO Malone/ANUSHA /12:32 PM /1:29 PM MTDGiacomo
[2017-07-25] MEDS: DOXYCYCLINE HYCLATE 100 MG CAP PO SCH (20:37)
[2017-07-25] MEDS: NS + KCL 20 MEQ INJ 1,000 ML IV SCH (20:37)
[2017-07-25] MEDS: APIXABAN 5 MG TABLET PO SCH (20:38)
[2017-07-26] MEDS: RESP: ALBUTEROL 2.5 MG/IPRATROPIUM 0.5 MG NEB (PRN) NEB ×2 (00:24→07:29)
[2017-07-26 00:26] VITALS: O2SAT 95
[2017-07-26] MEDS: ACETAMINOPHEN 325 MG TAB PO PRN ×2 (01:38→07:37)
[2017-07-26 03:18] VITALS: BP 135/70; PULSE 89; RESP 18; TEMP 98.2; O2SAT 95
[2017-07-26] MEDS: CEPHALEXIN MONOHYDRATE 500 MG CAP PO SCH ×2 (05:45→14:31)
[2017-07-26 07:15] VITALS: BP 92/46; PULSE 69; RESP 16; TEMP 98.1; O2SAT 98
[2017-07-26 07:31] VITALS: O2SAT 97
[2017-07-26 08:09] LABS: HEMATOCRIT 29.9 % (35.0-46.0); MEAN CELL VOLUME 88.4 FL (80.0-100.0); MEAN CORPUSCULAR HEMOGLOBIN 29.7 PG (27.0-34.0); MEAN CORPUSCULAR HGB CONC 33.6 % (32.0-36.0); PLATELET COUNT 212 TH/MM3 (150-450); RED BLOOD COUNT 3.38 MIL/MM3 (4.00-5.30); REVIEW FLAG FINAL; WHITE BLOOD COUNT 7.2 TH/MM3 (4.0-11.0)
[2017-07-26 08:41] LABS: BICARBONATE 33.9 MEQ/L (21.0-32.0)
[2017-07-26 08:42] LABS: POTASSIUM 3.3 MEQ/L (3.5-5.1)
[2017-07-26 09:00] VITALS: PULSE 78
[2017-07-26] MEDS: DOCUSATE SODIUM 50 MG/SENNA 8.6 MG TAB PO SCH (09:00)
[2017-07-26] MEDS ORDERED: DIGOXIN 0.125 MG TAB PO SCH (09:00)
[2017-07-26] MEDS: SODIUM CHLORIDE 0.9% FLUSH 10 ML FLUSH IV FLUSH SCH (09:00)
[2017-07-26] MEDS: APIXABAN 5 MG TABLET PO SCH (09:20)
[2017-07-26] MEDS: FUROSEMIDE 40 MG/4 ML VIAL IV PUSH SCH (09:20)
[2017-07-26] MEDS: POTASSIUM CHLORIDE 20 MEQ CONTROLLED RELEASE TAB PO SCH (09:20)
[2017-07-26] MEDS: DOXYCYCLINE HYCLATE 100 MG CAP PO SCH (09:20)
[2017-07-26] MEDS: PRAVASTATIN SOD 40 MG TAB PO SCH (09:20)
[2017-07-26 11:27] VITALS: BP 123/57; PULSE 75; RESP 20; TEMP 97.5; O2SAT 94
[2017-07-26] MEDS ORDERED: POTASSIUM CHLORIDE 25 MEQ EFFERVESCENT TAB PO ONE (12:30)
--- NOTE | 2017-07-26 12:31 | HHI.FF ---
Face to Face Verification Diagnosis: (1) SOB (shortness of breath) (2) Lower extremity edema Physical Therapy Order: Evaluate and Treat Home Health Nursing Order: Medical education Nursing assessment with vital signs I have seen patient Keri Lugo on 07/26/17. My clinical findings support the need for the requested home health care services because: Patient has SOB Deconditioned w/ increased weakness I certify that my clinical findings support that this patient is homebound because: Unsteady gait/balance Felicity Cruz [facility] Jul 26, 2017 12:31
[2017-07-26] MEDS ORDERED: TEMAZEPAM 15 MG CAP PO PRN (12:45)
--- NOTE | 2017-07-26 13:14 | HHI.PR ---
Subjective Subjective Remarks Patient complains of still feeling tired Leg swelling has improved considerably Leg redness has improved No fever No chest pain No shortness of breath at bedside Indicates that patient is at times not compliant with diet and eats a lot of salty foods including chips. She has become very deconditioned over the last 2 years, used to walk a lot and lately she is more tired than usual Patient indicates she slept poorly, anxious to go home Indicates that he went to see patient's knobber Dr. Urbina this morning to follow up on results of recent stress test and echo and everything was found stable. She was required to have this preoperative evaluation for upcoming hiatal hernia surgery Telemetry reviewed, sinus rhythm with occasional PVCs Review of Systems Constitutional Constitutional Remarks 12 point ros completed, negative except as noted above Vitals/Results Intake & Output 07/26/17 07/26/17 07/27/17 15:00 23:00 07:00 Intake Total 450 ml Balance 450 ml Intake IV Total 450 ml # Voids 1 # Bowel Movements 1 Vital Signs Vital Signs Date Time Temp Pulse Resp B/P (MAP) Pulse Ox O2 Delivery O2 Flow Rate FiO2 07/26/17 11:27 97.5 75 20 123/57 (79) 94 07/26/17 09:00 78 07/26/17 07:31 97 Nasal Cannula 2.00 07/26/17 07:15 98.1 69 16 92/46 (61) 98 07/26/17 03:18 98.2 89 18 135/70 (91) 95 07/26/17 00:26 95 Nasal Cannula 2.00 07/25/17 23:52 98.2 79 18 146/65 (92) 95 07/25/17 21:58 77 07/25/17 20:14 98.4 73 18 109/55 (73) 98 07/25/17 16:05 98.2 70 20 114/60 (78) 95 07/25/17 15:45 68 CBC/BMP: 07/26/17 0739 07/26/17 0739 Lab Results Laboratory Tests Test 07/26/17 07:39 White Blood Count 7.2 TH/MM3 Red Blood Count 3.38 MIL/MM3 Hemoglobin 10.0 GM/DL Hematocrit 29.9 % Mean Corpuscular Volume 88.4 FL Mean Corpuscular Hemoglobin 29.7 PG Mean Corpuscular Hemoglobin Concent 33.6 % Red Cell Distribution Width 15.0 % Platelet Count 212 TH/MM3 Mean Platelet Volume 8.2 FL Blood Urea Nitrogen 10 MG/DL Creatinine 0.72 MG/DL Random Glucose 131 MG/DL Calcium Level 7.8 MG/DL Sodium Level 136 MEQ/L Potassium Level 3.3 MEQ/L Chloride Level 94 MEQ/L Carbon Dioxide Level 33.9 MEQ/L Anion Gap 8 MEQ/L Estimat Glomerular Filtration Rate 79 ML/MIN Physical Exam General General Appearance: Well Developed, Comfortable, Obese Eyes Eye Exam: Pupils Equal, Pupils Reactive Ears & Nose Ears & Nose Exam: Nasal Mucosa Brimley Throat Throat Exam: Oral Mucosa Brimley & Moist Neck Neck Exam: Neck Supple, Trachea Midline Pulmonary Resp Exam: Clear Bilaterally, No Distress Cardiology CV Exam: Regular Gastrointestinal/Abdomen GI Exam: Soft, Non-Tender, Bowel Sounds Present, Non-Distended Musculoskeletal MS Exam: Joints Intact Integumentary Skin Exam: Warm, Dry Extremeties Extremities Exam: Pedal Pulses Palpable, Trace Edema Extremeties Remarks Minimal erythema lower extremities Neurologic Neuro Exam: Alert, Awake, Oriented, Speech Clear, Moving All Extremities, No Focal Deficits Psychiatric Psych Exam: Appropriate Responses VTE Prophylaxis VTE Remarks Eliquis Assessment/Plan Assessment/Plan ASSESSMENT: 1. Generalized weakness felt to be due to hypokalemia. 2. Increasing pedal edema with cellulitic changes. 3. Possible bilateral lower extremity deep venous thrombosis. 4. History of paroxysmal atrial fibrillation currently in sinus rhythm. 5. Hypertension. 6. Hyperlipidemia. 7. Large hiatal hernia. 8. Obesity. 9. History of recurrent pancreatitis. PLAN: Lower extremity swelling and erythema has improved considerably Continue with by mouth antibiotics Change to by mouth Lasix Potassium has improved, K3.3. Replace orally Cardiology consult pending Patient underwent recent cardiac workup for preop evaluation, had stress test that was negative per 's statement Had recent echo at Dr. Urbina, we will wait for further input from him Remain sinus rhythm with occasional PVCs Continue with digoxin Continue with full dose Eliquis, 5 mg by mouth twice a day Physical therapy for evaluation Out of bed today Case management consultation for discharge planning We will wait for further input from Dr. Urbina Possible discharge later today Discussed diet and compliance with low sodium diet. Needs to lose weight. Appears to have become very deconditioned over the last 2 years, per , she doesn't walk very much and is typically short of breath. She is due to have hiatal hernia surgery Patient is encouraged to try to lose some weight and increase activity She is agreeable with home health care and PT Discussed need to avoid foods that are salty, needs to continue low-fat diet. Activity as tolerated Follow-up with PCP, cardiology Discussed with RN Discussed with patient and Discussed with case management Discussed with Dr. Schafer This patient was seen by myself and Dr. Schafer, this note is written on his behalf Felicity Cruz Jul 26, 2017 13:14
[2017-07-26] MEDS ORDERED: APIX5TAB PO (13:53)
[2017-07-26] MEDS ORDERED: POTA20TA5 PO (13:53)
[2017-07-26] MEDS ORDERED: POTASSIUM CHLORIDE 8 MEQ CONTROLLED RELEASE TAB PO ONE (14:00)
--- NOTE | 2017-07-26 16:25 | MB ---
cc: MYRNA CABELLO M.D. DATE OF CONSULTATION 07/26/2017 HISTORY OF THE PRESENT ILLNESS Keri is a very pleasant 76-year-old lady with a history of atrial fibrillation, pancreatitis due to Multaq. She is on Eliquis and digoxin. She presented the ER with a chief complaint of weakness, fatigue and lower extremity edema, found have superficial thromboses by lower extremity ultrasound. BNP was 20. She was also hypokalemic. Status post potassium repletion she feels much better. Dr. Schafer increased her Eliquis. Her recent nuclear stress test and 2-D echo showed normal LV function. In my office nuclear stress test was low risk. She feels much better today. She is motivated to go home. She denies any fever or chills, cough, GI or bleeding, paroxysmal nocturnal dyspnea, orthopnea, syncope or dizziness. Also of note that the patient is actually taking hydrochlorothiazide and Lasix according to the ER admission note, however did not disclose this to me as an outpatient. PAST MEDICAL HISTORY Her past medical history is per history present illness. 1. She has a history of hypertension. 2. Hyperlipidemia. 3. Gastroesophageal reflux disease. SOCIAL HISTORY Denies tobacco or alcohol use. ALLERGIES NONE. MEDICATIONS In the hospital: 1. Lasix 20 milligrams p.o. twice a day. 2. Temazepam as needed. 3. Digoxin 0.125 daily. 4. Eliquis 5 milligrams twice a day. 5. Vibramycin 100 twice a day. 6. Pravastatin 40 daily. 7. Cephalexin 500 milligrams q.8h. PHYSICAL EXAMINATION VITAL SIGNS: Blood pressure 123/57, pulse 75, respiratory rate 20, temperature 97.5. GENERAL: She is alert and oriented times three. In no acute distress. NECK: Supple. No JVD or bruit. CARDIOVASCULAR: Normal S1-S2. No murmurs, rubs, or gallops. LUNGS: Clear to auscultation bilaterally. ABDOMEN: Soft, nontender, nondistended with positive bowel sounds. EXTREMITIES: Show no lower extremity edema. LABORATORY DATA White count 7.2, hemoglobin of 10.9, hematocrit 29.9, platelet count is 212. Sodium initially 133, potassium 2.7, chloride 88, BUN 10, creatinine 0.2. BNP is 20. Albumin 3.3. LFTs normal. Current sodium 136, potassium 3.3. Digoxin level is 0.9. EKG shows sinus rhythm at 91 beats per minute. Nonspecific ST-T wave changes. She had a CT angio of the chest with shows negative for PE. A large hiatal hernia. Chest x-ray large hernia, no acute abnormality or significant interval change. FINAL DIAGNOSES She has the following diagnoses: 1. Paroxysmal A fib. 2. Hypokalemia. 3. Hyponatremia. 4. Lower extremity edema. 5. Venous insufficiency. 6. Anemia. 7. Hiatal hernia. DISCUSSION At this point in time the patient has responded well to potassium repletion. Her HCTZ has been appropriately held. She does not appear to volume overloaded and therefore would be very cautious about diuretic use as this really only appears to be helping her cosmetically and actually increasing her risk for hypokalemia, hyponatremia. LV function is completely normal by gated SPECT and 2-D echo and she is completely euvolemic by BNP which is equal to 20. Agree with Rocco, continue Eliquis. I do think she can be discharged from a cardiovascular standpoint. I have told her and Dr. Schafer to have her follow up in my office tomorrow. I also told to bring all of her pill bottles with her as she had not disclosed to me in the office that she was on Lasix and HCTZ. MD LUCINA Nguyen/QUYNH /2:10 PM /3:39 PM
[2017-07-26] MEDS ORDERED: FUROSEMIDE 20 MG TAB PO SCH (21:00)
== END 2017-07-26 16:44 | disposition home or self-care (01) ==
LOC: NEPC 16:45 → NEDH 20:31 → NEPHCDU 23:52
PROVIDERS: ADMIT Specialist; ATTEND Specialist
DX: I82.403 Acute embolism and thrombosis of unspecified deep veins of lower extremity, bilateral (principal); R06.02 Shortness of breath; E87.6 Hypokalemia; I48.0 Paroxysmal atrial fibrillation; K44.9 Diaphragmatic hernia without obstruction or gangrene; E66.9 Obesity, unspecified; K86.1 Other chronic pancreatitis; Z79.01 Long term (current) use of anticoagulants; I10 Essential (primary) hypertension; J45.909 Unspecified asthma, uncomplicated; E78.00 Pure hypercholesterolemia, unspecified; R51 Headache; Z79.899 Other long term (current) drug therapy; R94.31 Abnormal electrocardiogram [ECG] [EKG]; I49.3 Ventricular premature depolarization; E87.1 Hypo-osmolality and hyponatremia; I87.2 Venous insufficiency (chronic) (peripheral); D64.9 Anemia, unspecified
CPT/HCPCS: 71010; 71275; 80048; 80076; 80162; 82550; 82552; 83880; 84484; 85025; 85027; 93005; 93970; 94640; 94664; 96365; 96366; 96375; 96376; 99285; G0378; J1940; J3370; J3480; J7050; Q9967

== ENCOUNTER 2018-02-09 12:09 | Day surgery (SDC) | payer MEDICARE, BC ==
[~2018-02-09 12:09] MED LIST changes: -APIX2.5T PO; +APIX5TAB PO; +CALC1TAB87 PO; +CYCL5TAB PO; +DIGO0.12 PO; -FERR200T PO; -FURO20TA PO; +HYDR-3533 PO; -HYDR25TA5 PO; +SPIR50TA PO
[2018-02-09] MEDS ORDERED: LACTATED RINGER'S 1000 ML IV PRN (13:15)
[2018-02-09] MEDS ORDERED: CHLORHEXIDINE GLUCONATE 2 % 1 PACK (2 CLOTHS) TOPICAL PRN (13:15)
[2018-02-09] MEDS ORDERED: POVIDONE IODINE 5% (ANTISEPSIS KIT) 4 APPLICATIONS EACH NARE PRN (13:15)
[2018-02-09] MEDS ORDERED: SODIUM CHLORID 0.9% 500 ML IV PRN (13:15)
[2018-02-09] MEDS ORDERED: METOPROLOL TARTRATE 25 MG TAB PO PRN (13:15)
[2018-02-09] MEDS ORDERED: PROPOFOL 200 MG/20 ML AMP ONE (14:41)
[2018-02-09] MEDS ORDERED: FAMOTIDINE 20 MG/2 ML VIAL ONE (14:43)
--- NOTE | 2018-02-09 15:04 | MR ---
cc: Eun Gunter MD DATE: 02/09/2018 INDICATION: Atrial fibrillation. PROCEDURE PERFORMED: Direct current (DC) cardioversion. DESCRIPTION OF PROCEDURE: After the patient was sedated by Anesthesia, 200 joule biphasic shock was delivered and converted the patient to sinus rhythm. The patient remained stable and was discharged home in stable condition. DIAGNOSIS: Successful cardioversion of atrial fibrillation. DISPOSITION: Ms. Lugo will continue her current medical program including anticoagulation with Eliquis. I will see her back for followup in our office after discharge. Eun Gunter MD OQ/TL , 02:54 PM , 03:03 PM MTDD
--- NOTE | 2018-02-10 14:15 | EKG ---
Date Performed: 02/09/2018 Time Performed: 12:40:30 PTAGE: 77 years EKG: Atrial fibrillation. Leftward axis Inferior infarct - age undetermined Possible anterior in farct - age undetermined Lateral ST-T changes are nonspecific Low QRS voltages in precordial leads Co mpared to previous tracing atrial fibrillation has replaced Sinus rhythm , R wave progression is worse, probably due to lead placement differences Abnormal ECG PREVIOUS TRACING : 07/24/2017 17.05 DOCTOR: Hubert De León Interpretating Date/Time 02/10/2018 14:14:22
--- NOTE | 2018-02-10 14:16 | EKG ---
Date Performed: 02/09/2018 Time Performed: 15:09:46 PTAGE: 77 years EKG: Sinus rhythm with 1st degree A-V block. Leftward axis Inferior infarct - age undetermined QRS changes V3/V4 may b e due to LVH but cannot rule out anterior infarct Lateral T wave changes are nonspecific Low QRS volt ages in precordial leads Compared to previous tracing sinus rhythm has replaced atrial fibrillation A bnormal ECG PREVIOUS TRACING : 02/09/2018 12.40 DOCTOR: Hubert De León Interpretating Date/Time 02/10/2018 14:15:20
== END 2018-02-09 15:39 | disposition home or self-care (01) ==
LOC: HDOC 12:09 → HDIC 12:10 → HDOC 15:39
PROVIDERS: ATTEND Internal Medicine Interventional Cardiology
DX: I48.91 Unspecified atrial fibrillation (principal); I10 Essential (primary) hypertension; E78.5 Hyperlipidemia, unspecified
CPT/HCPCS: 92960; 93005